=== PATIENT | male | born 1955 | race Caucasian/White ===

== ENCOUNTER 2020-01-10 15:19 | Inpatient (IN) | payer BC ==
[2020-01-10] MEDS ORDERED: methylPREDNISolone SOD SUCCI 125 MG/2 ML VIAL IV STA (15:36)
[2020-01-10] MEDS ORDERED: IPRATROPIUM-ALBUTEROL 3 ML NEB INHALATION STA (15:36)
--- NOTE | 2020-01-10 15:54 | ED ---
General Adult HPI - General Chief complaint: Shortness of Breath Stated complaint: SOB Time Seen by Provider: 01/10/20 15:31 Source: patient, EMS, RN notes reviewed Mode of arrival: EMS Limitations: no limitations - History of Present Illness Initial comments: Patient is a pleasant 64-year-old male presenting to the emergency Department with complaints of difficulty in breathing. Patient states she was discharged from [facility] just a few days ago. Patient continues to feel short of breath. Patient does have cough with occasional or just sputum. No fevers. No leg pain or leg swelling. - Related Data Allergies Allergy/AdvReac Type Severity Reaction Status Date / Time No Known Allergies Allergy Verified 01/10/20 15:55 Review of Systems ROS Statement: Those systems with pertinent positive or pertinent negative responses have been documented in the HPI. ROS Other: All systems not noted in ROS Statement are negative. Constitutional: Denies: fever Eyes: Denies: eye pain ENT: Denies: ear pain Respiratory: Reports: cough, dyspnea Cardiovascular: Denies: chest pain Endocrine: Reports: fatigue Gastrointestinal: Denies: abdominal pain Genitourinary: Denies: dysuria Musculoskeletal: Denies: back pain Skin: Denies: rash Neurological: Denies: weakness Past Medical History Past Medical History: Coronary Artery Disease (CAD), Heart Failure, Hypertension History of Any Multi-Drug Resistant Organisms: None Reported Past Surgical History: Pacemaker Past Psychological History: No Psychological Hx Reported Smoking Status: Current every day smoker Past Alcohol Use History: None Reported Past Drug Use History: None Reported General Exam Limitations: no limitations General appearance: alert, in no apparent distress Head exam: Present: normocephalic Eye exam: Present: normal appearance Neck exam: Present: normal inspection Respiratory exam: Present: wheezes, rhonchi Cardiovascular Exam: Present: regular rate, normal rhythm GI/Abdominal exam: Present: soft. Absent: tenderness Extremities exam: Present: normal inspection. Absent: calf tenderness Neurological exam: Present: alert Psychiatric exam: Present: normal affect, normal mood Skin exam: Present: normal color Course Vital Signs 01/10/20 01/10/20 01/10/20 15:23 15:39 15:45 Temperature 97.6 F Pulse Rate 83 88 86 Respiratory 24 Rate Blood Pressure 133/101 O2 Sat by Pulse 97 Oximetry - Reevaluation(s) Reevaluation #1: 08/04/20 16:26 Patient does meet sepsis criteria diagnosed at 1620. Blood culture and lactic acid ordered. Fluids ordered. IV antibiotics will also be ordered. 01/10/20 16:27 EKG Findings - EKG Comments: EKG Findings:: Sinus rhythm at 87. PVCs present. MO 166. QRS 98. QT 384. QTC 462. Normal axis. Septal Q waves. Lateral T wave inversion. Medical Decision Making - Medical Decision Making Patient reevaluated and resting comfortably in bed. Patient and family updated on results and plan. Case was discussed with Dr. Worthy, covering for Dr. Rivers, who will admit. - Lab Data Result diagrams: 01/10/20 15:40 01/10/20 15:40 Lab Results 01/10/20 01/10/20 01/10/20 Range/Units 15:40 15:40 15:40 WBC 13.3 H (3.8-10.6) k/uL RBC 5.37 (4.30-5.90) m/uL Hgb 16.3 (13.0-17.5) gm/dL Hct 52.9 (39.0-53.0) % MCV 98.5 (80.0-100.0) fL MCH 30.3 (25.0-35.0) pg MCHC 30.8 L (31.0-37.0) g/dL RDW 15.2 (11.5-15.5) % Hypochromasia Moderate Macrocytosis Slight PT 16.4 H (9.0-12.0) sec INR 1.7 H (<1.2) APTT 25.2 (22.0-30.0) sec Sodium 135 L (137-145) mmol/L Potassium 6.2 H* (3.5-5.1) mmol/L Chloride 98 (98-107) mmol/L Carbon Dioxide 28 (22-30) mmol/L Anion Gap 9 mmol/L BUN 64 H (9-20) mg/dL Creatinine 1.55 H (0.66-1.25) mg/dL Est GFR (CKD-EPI)AfAm 54 (>60 ml/min/1.73 sqM) Est GFR (CKD-EPI)NonAf 47 (>60 ml/min/1.73 sqM) Glucose 118 H (74-99) mg/dL Plasma Lactic Acid Harish (0.7-2.0) mmol/L Calcium 8.8 (8.4-10.2) mg/dL Total Bilirubin 2.3 H (0.2-1.3) mg/dL AST 86 H (17-59) U/L ALT 119 H (4-49) U/L Alkaline Phosphatase 126 (38-126) U/L Total Protein 7.5 (6.3-8.2) g/dL Albumin 3.7 (3.5-5.0) g/dL 01/10/20 Range/Units 15:40 WBC (3.8-10.6) k/uL RBC (4.30-5.90) m/uL Hgb (13.0-17.5) gm/dL Hct (39.0-53.0) % MCV (80.0-100.0) fL MCH (25.0-35.0) pg MCHC (31.0-37.0) g/dL RDW (11.5-15.5) % Hypochromasia Macrocytosis PT (9.0-12.0) sec INR (<1.2) APTT (22.0-30.0) sec Sodium (137-145) mmol/L Potassium (3.5-5.1) mmol/L Chloride (98-107) mmol/L Carbon Dioxide (22-30) mmol/L Anion Gap mmol/L BUN (9-20) mg/dL Creatinine (0.66-1.25) mg/dL Est GFR (CKD-EPI)AfAm (>60 ml/min/1.73 sqM) Est GFR (CKD-EPI)NonAf (>60 ml/min/1.73 sqM) Glucose (74-99) mg/dL Plasma Lactic Acid Harish 2.1 H* (0.7-2.0) mmol/L Calcium (8.4-10.2) mg/dL Total Bilirubin (0.2-1.3) mg/dL AST (17-59) U/L ALT (4-49) U/L Alkaline Phosphatase (38-126) U/L Total Protein (6.3-8.2) g/dL Albumin (3.5-5.0) g/dL - Radiology Data Radiology results: image reviewed (Chest x-ray shows left lower lobe consolidate) Critical Care Time Critical Care Time: Yes Total Critical Care Time: 33 Disposition Clinical Impression: Pneumonia, COPD (chronic obstructive pulmonary disease), Sepsis Disposition: ADMITTED IP TO THIS HOSP Condition: Serious Is patient prescribed a controlled substance at d/c from ED?: No Referrals: Joann Scott MD [Primary Care Provider] - 1-2 days Decision Time: 16:27
[2020-01-10 16:07] LABS: Basophils % (A) 0 %; Eosinophils # (A) 0.1 k/uL (0-0.7); Eosinophils % (A) 1 %; HCT 52.9 % (39.0-53.0); HGB 16.3 gm/dL (13.0-17.5); Hypochromasia Moderate; Lymphocytes # (A) 1.1 k/uL (1.0-4.8); Lymphocytes % (A) 9 %; MCH 30.3 pg (25.0-35.0); MCHC 30.8 g/dL (31.0-37.0); MCV 98.5 fL (80.0-100.0); Macrocytosis Slight; Mean Platelet Volume 8.6; Monocytes # (A) 1.2 k/uL (0-1.0); Monocytes % (A) 9 %; Neutrophils # (A) 10.6 k/uL (1.3-7.7); Neutrophils % (A) 79 %; RBC 5.37 m/uL (4.30-5.90); RDW 15.2 % (11.5-15.5); WBC 13.3 k/uL (3.8-10.6)
[2020-01-10 16:08] LABS: Albumin 3.7 g/dL (3.5-5.0); Calcium 8.8 mg/dL (8.4-10.2); INR 1.7 (<1.2); Partial Thromboplastin Time 25.2 sec (22.0-30.0); Prothrombin Time 16.4 sec (9.0-12.0); Total Bilirubin 2.3 mg/dL (0.2-1.3); Total Protein 7.5 g/dL (6.3-8.2)
[2020-01-10 16:09] LABS: Platelet Count 151 k/uL (150-450)
[2020-01-10 16:10] LABS: Potassium 6.2 mmol/L (3.5-5.1)
--- NOTE | 2020-01-10 16:15 | XR ---
EXAMINATION TYPE: XR chest 2V DATE OF EXAM: 01/10/2020 COMPARISON: None INDICATION: Difficulty breathing TECHNIQUE: Frontal and lateral views of the chest are obtained. FINDINGS: The heart size is normal. The pulmonary vasculature is normal. There is an infiltrate in the left lower lobe. Correlate for pneumonia. Pacemaker overlies the left c hest. IMPRESSION: 1. Left lower lobe infiltrate. Correlate for pneumonia. Follow-up is recommended.
[2020-01-10] MEDS ORDERED: LEVOFLOXACIN 750MG-D5W PMX 750 MG in DEXTROSE/WATER 1 150ML.BAG IVPB STA (16:16)
[2020-01-10] MEDS ORDERED: CALCIUM GLUCONATE 1 GM in SODIUM CHLORIDE 0.9% 100 ML IVPB ONE (16:28)
[2020-01-10] MEDS ORDERED: DEXTROSE 50% SYRINGE 50 ML IVP STA (16:28)
[2020-01-10] MEDS ORDERED: INSULIN REGULAR 100 UNIT/ML VIAL IV ONE (16:28)
[2020-01-10 16:29] LABS: Large Platelets Present
[2020-01-10] MEDS ORDERED: SODIUM POLYSTYRENE SULFONATE 15 GM/60 ML BOTTLE PO STA (16:29)
[2020-01-10] MEDS ORDERED: PNEUMONIA PROTOCOL UTILIZED 1 EACH MISC PO PRN (16:29)
[2020-01-10] MEDS ORDERED: IPRATROPIUM-ALBUTEROL 3 ML NEB INHALATION PRN (16:29)
[2020-01-10] MEDS: SODIUM CHLORIDE 0.9% 1,000 ML IV STA ×4 (16:42→16:55)
[2020-01-10] MEDS ORDERED: NITROGLYCERIN SL TABS 0.4 MG TAB SUBLINGUAL PRN (17:12)
[2020-01-10] MEDS ORDERED: ACETAMINOPHEN TAB 500 MG TAB PO PRN (17:12)
--- NOTE | 2020-01-10 17:23 | P.HPIM ---
History of Present Illness Patient is a pleasant 64-year-old came in with comments of symptoms of progressive shortness of breath orthopnea proximal nocturnal dyspnea proximal nocturnal dyspnea every night. Patient was recently discharged from [facility] after he was treated for CHF exacerbation along with UTI. I do not have any medical records from that hospital available will obtain medical records unknown whether patient has decreased EF as per the patient patient appears to have EF of around a 10%. Patient follows up with Dr. Melchor, cardiology. Patient denied any fever chills patient denied any present dysuria is complaining of cough with yellowish sputum production patient has left lower lobe infiltrate on the chest x-ray highly elevated BNP mildly elevated JVD mild pitting pedal edema on exam. Patient has mildly elevated lactic acid of 2.1 because of which patient was given IV fluids which will be discontinued because of his pulmonary edema and CHF and patient will be started on IV Lasix and will recheck the lactic acid. Patient was started on levofloxacin patient was on Augmentin as an outpatient levofloxacin will be continued for now. Patient has mildly elevated INR patient is presently not on Coumadin. He does have elevated potassium of 6.0 for which patient is receiving calcium gluconate along with capsulate. Patient is a smoker is not consumed exacerbation IV steroids were discontinued. Patient has a BNP of 15,000 Review of Systems REVIEW OF SYSTEMS: CONSTITUTIONAL: No fever, no malaise, no fatigue. HEENT: No recent visual problems or hearing problems. Denied any sore throat. CARDIOVASCULAR: No chest pain, no palpitations, no syncope. PULMONARY: no hemoptysis. GASTROINTESTINAL: No diarrhea, no nausea, no vomiting, no abdominal pain. NEUROLOGICAL: No headaches, no weakness, no numbness. HEMATOLOGICAL: Denies any bleeding or petechiae. GENITOURINARY: Denies any burning micturition, frequency, or urgency. MUSCULOSKELETAL/RHEUMATOLOGICAL: Denies any joint pain, swelling, or any muscle pain. ENDOCRINE: Denies any polyuria or polydipsia. The rest of the 14-point review of systems is negative. Past Medical History Past Medical History: Coronary Artery Disease (CAD), Heart Failure, Hypertension History of Any Multi-Drug Resistant Organisms: None Reported Past Surgical History: Pacemaker Past Psychological History: No Psychological Hx Reported Smoking Status: Current every day smoker Past Alcohol Use History: None Reported Past Drug Use History: None Reported Medications and Allergies Home Medications Medication Instructions Recorded Confirmed Type Acetaminophen Tab [Tylenol Tab] 500 mg PO Q4H PRN 01/10/20 01/10/20 History Amoxic-Pot Clav 875-125Mg 1 tab PO Q12H 01/10/20 01/10/20 History [Augmentin 875-125] Aspirin EC [Ecotrin Low Dose] 81 mg PO DAILY 01/10/20 01/10/20 History Budesonide/Formoterol Fumarate 2 puff INHALATION RT-BID 01/10/20 01/10/20 History [Symbicort 160-4.5 Mcg Inhaler] Carvedilol [Coreg] 12.5 mg PO BID 01/10/20 01/10/20 History Famotidine 20 mg PO BID 01/10/20 01/10/20 History Furosemide [Lasix] 40 mg PO BID 01/10/20 01/10/20 History Ipratropium-Albuterol Nebulize 3 ml INHALATION RT-TID 01/10/20 01/10/20 History [Duoneb 0.5 mg-3 mg/3 ml Soln] Nitroglycerin Sl Tabs [Nitrostat] 0.4 mg SUBLINGUAL Q5M PRN 01/10/20 01/10/20 History Oxybutynin Xl [Ditropan Xl] 5 mg PO DAILY 01/10/20 01/10/20 History Potassium Chloride ER [K-Dur 20] 20 meq PO DAILY 01/10/20 01/10/20 History Allergies Allergy/AdvReac Type Severity Reaction Status Date / Time No Known Allergies Allergy Verified 01/10/20 16:48 Physical Exam Vitals: Vital Signs Temp Pulse Resp BP Pulse Ox 01/10/20 16:30 85 20 145/86 95 01/10/20 15:45 86 01/10/20 15:39 88 01/10/20 15:23 97.6 F 83 24 133/101 97 Intake and Output 01/10/20 01/10/20 01/10/20 06:59 14:59 22:59 Other: Weight 139.706 kg PHYSICAL EXAMINATION: GENERAL: The patient is alert and oriented x3, not in any acute distress. Well developed, well nourished. HEENT: Pupils are round and equally reacting to light. EOMI. No scleral icterus. No conjunctival pallor. Normocephalic, atraumatic. No pharyngeal erythema. No thyromegaly. CARDIOVASCULAR: S1 and S2 present. No murmurs, rubs, or gallops. Her elevated JVD PULMONARY: Chest is clear to auscultation, no wheezing or crackles. ABDOMEN: Soft, nontender, nondistended, normoactive bowel sounds. No palpable organomegaly. MUSCULOSKELETAL: No joint swelling or deformity. EXTREMITIES: No cyanosis, clubbing, does have 1-2+ pitting pedal edema in bilateral lower extremities NEUROLOGICAL: Gross neurological examination did not reveal any focal deficits. SKIN: No rashes. Results CBC & Chem 7: 01/10/20 15:40 01/10/20 15:40 Labs: Abnormal Lab Results - Last 24 Hours (Table) 01/10/20 01/10/20 01/10/20 Range/Units 15:40 15:40 15:40 WBC 13.3 H (3.8-10.6) k/uL MCHC 30.8 L (31.0-37.0) g/dL Neutrophils # 10.6 H (1.3-7.7) k/uL Monocytes # 1.2 H (0-1.0) k/uL PT 16.4 H (9.0-12.0) sec INR 1.7 H (<1.2) Sodium 135 L (137-145) mmol/L Potassium 6.2 H* (3.5-5.1) mmol/L BUN 64 H (9-20) mg/dL Creatinine 1.55 H (0.66-1.25) mg/dL Glucose 118 H (74-99) mg/dL Plasma Lactic Acid Harish (0.7-2.0) mmol/L Total Bilirubin 2.3 H (0.2-1.3) mg/dL AST 86 H (17-59) U/L ALT 119 H (4-49) U/L 01/10/20 Range/Units 15:40 WBC (3.8-10.6) k/uL MCHC (31.0-37.0) g/dL Neutrophils # (1.3-7.7) k/uL Monocytes # (0-1.0) k/uL PT (9.0-12.0) sec INR (<1.2) Sodium (137-145) mmol/L Potassium (3.5-5.1) mmol/L BUN (9-20) mg/dL Creatinine (0.66-1.25) mg/dL Glucose (74-99) mg/dL Plasma Lactic Acid Harish 2.1 H* (0.7-2.0) mmol/L Total Bilirubin (0.2-1.3) mg/dL AST (17-59) U/L ALT (4-49) U/L Assessment and Plan Plan: -Shortness of breath and acute hypoxic respiratory failure: Most probably 70 to CHF exacerbation no evidence of COPD exacerbation patient does have history of COPD patient will be started on IV Lasix 6 IV fluids were discontinued. We'll recheck the lactic acid level again -Lactic acidosis secondary to decreased organ perfusion which is expected to improve once the pumping capacity of the heart improves which is again by preload and afterload reduction because of which the we'll order Lasix at this time -Possibly of pneumonia cannot be completely ruled out pulmonary will evaluate the patient patient has left lower lobe infiltrate will continue with levofloxacin patient was recently treated for UTI patient is presently on Augmentin because of which will not repeat year which will be negative because of antibiotics is receiving -Hypertension next and-based to -Continued nicotine use: Counseling was provided -COPD without any acute exacerbation IV steroids will be discontinued -Elevated INR and coag of the probably secondary to nutritional deficiency of vitamin K or hepatic congestion -DVT prophylaxis Lovenox subcutaneous.
[2020-01-10] MEDS ORDERED: methylPREDNISolone SOD SUCCI 125 MG/2 ML VIAL IV SCH (18:00)
[2020-01-10] MEDS ORDERED: LEVOFLOXACIN 750MG-D5W PMX 750 MG in DEXTROSE/WATER 1 150ML.BAG IVPB SCH (18:00)
[2020-01-10] MEDS: carvediloL 12.5 MG TAB PO SCH (18:41)
[2020-01-10] MEDS ORDERED: IPRATROPIUM-ALBUTEROL 3 ML NEB INHALATION SCH ×2 (20:00)
[2020-01-10] MEDS: FUROSEMIDE 10 MG/ML 10 ML VIAL IV SCH (20:20)
[2020-01-10] MEDS: FAMOTIDINE 20 MG TAB PO SCH (20:21)
[2020-01-10] MEDS: TIOTROPIUM 18 MCG/PUFF INHALER INHALATION SCH (20:48)
[2020-01-10] MEDS: SYMBICORT 160-4.5 MCG INHALER INHALATION SCH (20:49)
[2020-01-10] MEDS: ALBUTEROL HFA INHALER INHALATION SCH (20:50)
[2020-01-10] MEDS ORDERED: FAMOTIDINE 20 MG TAB PO SCH (21:00)
[2020-01-10 21:04] LABS: Glucose,Whole Blood 183 mg/dL (75-99)
[2020-01-10] MEDS: INSULIN ASPART (NovoLOG) 100 UNIT/ML VIAL SQ SCH (21:07)
[2020-01-10] MEDS: HEPARIN SODIUM,PORCINE 5,000 UNIT/ML 1 ML VIAL SQ SCH (22:59)
[2020-01-11 06:33] LABS: Glucose,Whole Blood 129 mg/dL (75-99)
[2020-01-11] MEDS: INSULIN ASPART (NovoLOG) 100 UNIT/ML VIAL SQ SCH ×4 (06:37→22:01)
[2020-01-11] MEDS: carvediloL 12.5 MG TAB PO SCH ×2 (06:40→16:55)
--- NOTE | 2020-01-11 07:28 | XR ---
EXAMINATION TYPE: XR chest 1V portable DATE OF EXAM: 01/11/2020 COMPARISON: 01/10/2020 INDICATION: Pneumonia TECHNIQUE: Single frontal view of the chest is obtained. FINDINGS: The heart size is enlarged. The pulmonary vasculature is normal. Mild left costophrenic angle infiltrate is present. Findings may be improving from comparison. Pacema ker overlies left chest. IMPRESSION: 1. Left costophrenic angle infiltrate. Left basilar infiltrate may be improving. Continued follow-up is recommended. 2. Cardiomegaly.
[2020-01-11 08:17] LABS: Calcium 8.5 mg/dL (8.4-10.2)
[2020-01-11 08:25] LABS: HGB 16.9 gm/dL (13.0-17.5); Hypochromasia Marked; MCH 30.3 pg (25.0-35.0); MCHC 30.5 g/dL (31.0-37.0); MCV 99.3 fL (80.0-100.0); Macrocytosis Slight; Platelet Count 146 k/uL (150-450); RBC 5.59 m/uL (4.30-5.90); WBC 16.3 k/uL (3.8-10.6)
[2020-01-11 08:33] LABS: HCT 55.5 % (39.0-53.0)
[2020-01-11] MEDS: TIOTROPIUM 18 MCG/PUFF INHALER INHALATION SCH (08:51)
[2020-01-11] MEDS: ALBUTEROL HFA INHALER INHALATION SCH ×4 (08:51→19:28)
[2020-01-11] MEDS: SYMBICORT 160-4.5 MCG INHALER INHALATION SCH ×2 (08:51→19:28)
[2020-01-11] MEDS: FUROSEMIDE 10 MG/ML 10 ML VIAL IV SCH (09:10)
[2020-01-11] MEDS: FAMOTIDINE 20 MG TAB PO SCH ×2 (09:10→22:00)
[2020-01-11] MEDS: HEPARIN SODIUM,PORCINE 5,000 UNIT/ML 1 ML VIAL SQ SCH (09:10)
[2020-01-11] MEDS: OXYBUTYNIN XL 5 MG TAB.ER.24 PO SCH (09:10)
[2020-01-11] MEDS: ASPIRIN 81 MG PO SCH (09:10)
[2020-01-11] MEDS ORDERED: HEPARIN SODIUM,PORCINE 5,000 UNIT/ML 1 ML VIAL IV PRN (10:03)
[2020-01-11] MEDS ORDERED: HEPARIN SODIUM,PORCINE 10,000 UNIT/ML 1 ML VIAL IV ONE (10:03)
--- NOTE | 2020-01-11 10:12 | ECHOF ---
Referral Reason:CHF MEASUREMENTS -------- HEIGHT: 190.5 cm WEIGHT: 137.9 kg BP: 131/79 RVIDd: 3.8 cm (< 3.3) IVSd: 1.0 cm (0.6 - 1.1) LVIDd: 6.9 cm (3.9 - 5.3) LVPWd: 1.1 cm (0.6 - 1.1) IVSs: 1.1 cm LVIDs: 6.3 cm LVPWs: 1.5 cm LA Diam: 4.7 cm (2.7 - 3.8) LAESV Index (A-L): 35.62 ml/m Ao Diam: 2.9 cm (2.0 - 3.7) AV Cusp: 2.1 cm (1.5 - 2.6) MV EXCURSION: 18.069 mm (> 18.000) MV EF SLOPE: 127 mm/s (70 - 150) EPSS: 3.1 cm MV E Narinder: 0.77 m/s MV DecT: 209 ms MV A Narinder: 0.54 m/s MV E/A Ratio: 1.42 RAP: 15.00 mmHg RVSP: 52.70 mmHg FINDINGS -------- Paced rhythm. This was a technically difficult study with suboptimal apical views. The left ventricle is severely dilated. There is borderline concentric left ventricular hypertrophy . Overall left ventricular systolic function is severely impaired with, an EF between 20 - 25 %. Global hypokinesis The right ventricle is moderately enlarged. LA is moderately dilated 34-39 ml/m2 The right atrium was not well visualized. Lumason used There is no evidence of aortic stenosis. Mild mitral regurgitation is present. Mild tricuspid regurgitation present. There is moderate pulmonary hypertension. The right ventric ular systolic pressure, as measured by Doppler, is 52.70mmHg. The pulmonic valve was not well visualized. The aortic root size is normal. The inferior vena cava is dilated with no significant inspiratory collapse which is consistent estima nia right atrial pressure of >15 mmHg. There is no pericardial effusion. LV apical mass noted CONCLUSIONS -------- 1. Paced rhythm. 2. This was a technically difficult study with suboptimal apical views. 3. The left ventricle is severely dilated. 4. There is borderline concentric left ventricular hypertrophy. 5. Overall left ventricular systolic function is severely impaired with, an EF between 20 - 25 %. 6. Global hypokinesis 7. The right ventricle is moderately enlarged. 8. LA is moderately dilated 34-39 ml/m2 9. Lumason used 10. There is no evidence of aortic stenosis. 11. Mild mitral regurgitation is present. 12. Mild tricuspid regurgitation present. 13. There is moderate pulmonary hypertension. 14. The right ventricular systolic pressure, as measured by Doppler, is 52.70mmHg. 15. The inferior vena cava is dilated with no significant inspiratory collapse which is consistent es timated right atrial pressure of >15 mmHg. 16. There is no pericardial effusion. 17. LV apical mass noted [employer] ATTENDANT: Maricel Huitron RDCS
[2020-01-11] MEDS: HEPARIN SOD,PORK IN 0.45% NACL 25,000 UNIT in 0.45% NACL 1 250ML.BAG IV SCH ×2 (10:30→22:01)
[2020-01-11 11:34] LABS: INR 1.7 (<1.2); Partial Thromboplastin Time 26.5 sec (22.0-30.0); Prothrombin Time 16.3 sec (9.0-12.0)
--- NOTE | 2020-01-11 11:56 | P.PN ---
Subjective 61-year-old male was admitted for a heart failure exacerbation. Patient the had an ejection fraction of around 30 to the liver center. Echocardiogram done well here showed EF of around 20-25% patient also has another cardiac intracardiac thrombus patient was started on IV heparin. Medical records which were reviewed by pulmonology from [facility] showed urine cultures positive for enterococcus and E. coli which are both sensitive to Augmentin patient was started back on Augmentin levofloxacin will be discontinued. We'll cut down the Lasix dose of 40 mg every 12 hourly patient had significant urine output and patient pedal edema significant improved. Patient doesn't have any fever chills at this time. Patient's shortness of breath significantly improved. Constitutional: Denied any fatigue denied any fever. Cardio vascular: denied any chest pain, palpitations Gastrointestinal denied any nausea vomiting Pulmonary: Denied any shortness of breath cough Neurologic denied any new focal deficits All inpatient medications were reviewed and appropriate changes in these medications as dictated in the interval history and assessment and plan. Objective - Vital Signs Vital signs: Vital Signs Temp 97.7 F 01/11/20 11:34 Pulse 80 01/11/20 11:37 Resp 16 01/11/20 11:37 BP 111/62 01/11/20 11:34 Pulse Ox 95 01/11/20 11:34 Intake & Output 01/10/20 01/11/20 01/11/20 18:59 06:59 18:59 Intake Total 100 Output Total 75 1625 Balance 25 -1625 Weight 139.706 kg 138 kg Intake: IV 100 Calcium Gluconate 1 gm In 100 Sodium Chloride 0.9% 100 ml @ 100 mls/hr IVPB ONCE ONE Rx#:[id number] Output: Urine 75 1625 Other: Voiding Method Incontinent Urinal Urinal # Voids 1 - Exam PHYSICAL EXAMINATION: GENERAL: The patient is alert and oriented x3, not in any acute distress. Well developed, well nourished. HEENT: Pupils are round and equally reacting to light. EOMI. No scleral icterus. No conjunctival pallor. Normocephalic, atraumatic. No pharyngeal erythema. No thyromegaly. CARDIOVASCULAR: S1 and S2 present. No murmurs, rubs, or gallops. Improved JVD PULMONARY: Chest is clear to auscultation, no wheezing or crackles. ABDOMEN: Soft, nontender, nondistended, normoactive bowel sounds. No palpable organomegaly. MUSCULOSKELETAL: No joint swelling or deformity. EXTREMITIES: No cyanosis, clubbing, or pedal edema improved NEUROLOGICAL: Gross neurological examination did not reveal any focal deficits. SKIN: No rashes. - Labs CBC & Chem 7: 01/11/20 07:02 01/11/20 07:02 Labs: Abnormal Lab Results - Last 24 Hours (Table) 01/10/20 01/10/20 01/10/20 Range/Units 15:40 15:40 15:40 WBC 13.3 H (3.8-10.6) k/uL Hct (39.0-53.0) % MCHC 30.8 L (31.0-37.0) g/dL Plt Count (150-450) k/uL Neutrophils # 10.6 H (1.3-7.7) k/uL Monocytes # 1.2 H (0-1.0) k/uL PT 16.4 H (9.0-12.0) sec INR 1.7 H (<1.2) Sodium 135 L (137-145) mmol/L Potassium 6.2 H* (3.5-5.1) mmol/L BUN 64 H (9-20) mg/dL Creatinine 1.55 H (0.66-1.25) mg/dL Glucose 118 H (74-99) mg/dL POC Glucose (mg/dL) (75-99) mg/dL Plasma Lactic Acid Harish (0.7-2.0) mmol/L Total Bilirubin 2.3 H (0.2-1.3) mg/dL AST 86 H (17-59) U/L ALT 119 H (4-49) U/L 01/10/20 01/10/20 01/10/20 Range/Units 15:40 18:16 21:03 WBC (3.8-10.6) k/uL Hct (39.0-53.0) % MCHC (31.0-37.0) g/dL Plt Count (150-450) k/uL Neutrophils # (1.3-7.7) k/uL Monocytes # (0-1.0) k/uL PT (9.0-12.0) sec INR (<1.2) Sodium (137-145) mmol/L Potassium (3.5-5.1) mmol/L BUN (9-20) mg/dL Creatinine (0.66-1.25) mg/dL Glucose (74-99) mg/dL POC Glucose (mg/dL) 183 H (75-99) mg/dL Plasma Lactic Acid Harish 2.1 H* 2.1 H* (0.7-2.0) mmol/L Total Bilirubin (0.2-1.3) mg/dL AST (17-59) U/L ALT (4-49) U/L 01/11/20 01/11/20 01/11/20 Range/Units 06:31 07:02 07:02 WBC 16.3 H (3.8-10.6) k/uL Hct 55.5 H (39.0-53.0) % MCHC 30.5 L (31.0-37.0) g/dL Plt Count 146 L (150-450) k/uL Neutrophils # (1.3-7.7) k/uL Monocytes # (0-1.0) k/uL PT (9.0-12.0) sec INR (<1.2) Sodium (137-145) mmol/L Potassium (3.5-5.1) mmol/L BUN 62 H (9-20) mg/dL Creatinine 1.29 H (0.66-1.25) mg/dL Glucose 133 H (74-99) mg/dL POC Glucose (mg/dL) 129 H (75-99) mg/dL Plasma Lactic Acid Harish (0.7-2.0) mmol/L Total Bilirubin (0.2-1.3) mg/dL AST (17-59) U/L ALT (4-49) U/L 01/11/20 Range/Units 10:24 WBC (3.8-10.6) k/uL Hct (39.0-53.0) % MCHC (31.0-37.0) g/dL Plt Count (150-450) k/uL Neutrophils # (1.3-7.7) k/uL Monocytes # (0-1.0) k/uL PT 16.3 H (9.0-12.0) sec INR 1.7 H (<1.2) Sodium (137-145) mmol/L Potassium (3.5-5.1) mmol/L BUN (9-20) mg/dL Creatinine (0.66-1.25) mg/dL Glucose (74-99) mg/dL POC Glucose (mg/dL) (75-99) mg/dL Plasma Lactic Acid Harish (0.7-2.0) mmol/L Total Bilirubin (0.2-1.3) mg/dL AST (17-59) U/L ALT (4-49) U/L Assessment and Plan Plan: -Shortness of breath and acute hypoxic respiratory failure: Secondary to start failure exacerbation improved now lactic acidosis improved serum creatinine and serum sodium improved. Patient does have an intracardiac thrombus for which patient was started on IV heparin -Intra cardiac thrombus: Patient is presently on IV heparin -Acute renal failure secondary to prerenal azotemia from congestive heart failure improving at this time -Hypervolemic hyponatremia improving with Lasix -Lactic acidosis secondary to decreased organ perfusion improved at this time -Pneumonia was ruled out -Recent UTI with enterococcus and E. coli for which we'll continue and complete the course of Augmentin -Hypertension -Continued nicotine use: Counseling was provided -COPD without any acute exacerbation IV steroids will be discontinued -Elevated INR and coag of the probably secondary to nutritional deficiency of vitamin K or hepatic congestion -DVT prophylaxis Lovenox subcutaneous.
[2020-01-11 12:29] LABS: Glucose,Whole Blood 226 mg/dL (75-99)
--- NOTE | 2020-01-11 14:35 | P.CRDCN ---
History of Present Illness Consult date: 01/11/20 History of present illness: CHIEF COMPLAINT: Shortness of breath HISTORY OF PRESENT ILLNESS: 64-year-old male who presented to the hospital with a chief complaint of shortness of breath. Patient states he was recently hospitalized at [facility] for congestive heart failure. He was discharged home on Thursday and continued to get more short of breath for the last 2 days. 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 He does report a history of a pacemaker and AICD. Patient states his shortness of breath and lower extremity edema are improving. He denies any chest pain or discomfort. Patient's weight is down 0.3 kg today. Fluid balance over the last 24 hours is -1600 mL. DIAGNOSTICS Chest xray on admission reveals left lower lobe infiltrate. Correlate for pneumonia. Laboratory data reveals hemoglobin 16.9. Platelet count 146. Sodium 137. Potassium 5.0. BUN 62. Creatinine 1.29. Lactic acid 2.0. Magnesium 2.0. BNP 15,200. Echocardiogram: Reveals left ventricle apical mass/thrombus. Ejection fraction of 20-25%. Global hypokinesis. Right ventricle moderately enlarged. Mild mitral regurg. Mild tricuspid regurg. Moderate pulmonary hypertension. RVSP 52.7. Current outpatient cardiac medications include Lasix 40 mg twice a day, Coreg 12.5 mg twice a day, and aspirin 81 mg daily REVIEW OF SYSTEMS: CONSTITUTIONAL: Denies fever or chills. HEENT: Denies blurred vision, vision changes, or eye pain. Denies hemoptysis CARDIOVASCULAR: Denies chest pain, orthopnea, PND or palpitations RESPIRATORY: Reports shortness of breath GASTROINTESTINAL: Denies abdominal pain. Denies nausea or vomiting. HEMATOLOGIC: Denies bleeding disorders. GENITOURINARY: Denies any blood in urine. SKIN: Denies pruitis. Denies rash. PHYSICAL EXAM: VITAL SIGNS: Reviewed. GENERAL: Well-developed in no acute distress. HEENT: Head is normocephalic. Pupils are equal, round. Sclerae anicteric. Mucous membranes of the mouth are moist. Neck supple. No JVD or thyromegaly LUNGS: Respirations even and unlabored. Lungs essentially clear to auscultation bilaterally. HEART: Regular rate and rhythm. S1 and S2 heard. ABDOMEN: Soft. Nontender. EXTREMITIES: Normal range of motion. No clubbing or cyanosis. Peripheral pulses intact. 1+ bilateral lower extremity edema NEUROLOGIC: Awake and alert. Oriented x 3. ASSESSMENT: 1. Left ventricle thrombus 2. Acute exacerbation of systolic congestive heart failure, EF 20-25% 3. Possible pneumonia 4. Cardiomyopathy with permanent pacemaker/AICD 5. History of COPD with home oxygen use, 2L PLAN: -Continue IV lasix -Daily weights and accurate I&O -Management of possible pneumonia per medicine -Begin IV Heparin. Patient will require oral anticoagulation for left ventricle thrombus -Will obtain office records from patients railroad wheels and axles inspector, Dr. Snider Nurse practitioner note has been reviewed by physician. Signing provider agrees with the documented findings, assessment, and plan of care. Past Medical History Past Medical History: Coronary Artery Disease (CAD), Heart Failure, Hypertension History of Any Multi-Drug Resistant Organisms: None Reported Past Surgical History: Pacemaker Past Anesthesia/Blood Transfusion Reactions: No Reported Reaction Type of Cardiac Device: Permanent Pacemaker, AICD Device Placement Date:: 2016 Past Psychological History: No Psychological Hx Reported Smoking Status: Current every day smoker Past Alcohol Use History: None Reported Past Drug Use History: None Reported - Past Family History Father Family Medical History: Myocardial Infarction ([place]) Medications and Allergies Home Medications Medication Instructions Recorded Confirmed Type Acetaminophen Tab [Tylenol Tab] 500 mg PO Q4H PRN 01/10/20 01/10/20 History Amoxic-Pot Clav 875-125Mg 1 tab PO Q12H 01/10/20 01/10/20 History [Augmentin 875-125] Aspirin EC [Ecotrin Low Dose] 81 mg PO DAILY 01/10/20 01/10/20 History Budesonide/Formoterol Fumarate 2 puff INHALATION RT-BID 01/10/20 01/10/20 History [Symbicort 160-4.5 Mcg Inhaler] Carvedilol [Coreg] 12.5 mg PO BID 01/10/20 01/10/20 History Famotidine 20 mg PO BID 01/10/20 01/10/20 History Furosemide [Lasix] 40 mg PO BID 01/10/20 01/10/20 History Ipratropium-Albuterol Nebulize 3 ml INHALATION RT-TID 01/10/20 01/10/20 History [Duoneb 0.5 mg-3 mg/3 ml Soln] Nitroglycerin Sl Tabs [Nitrostat] 0.4 mg SUBLINGUAL Q5M PRN 01/10/20 01/10/20 History Oxybutynin Xl [Ditropan Xl] 5 mg PO DAILY 01/10/20 01/10/20 History Potassium Chloride ER [K-Dur 20] 20 meq PO DAILY 01/10/20 01/10/20 History Allergies Allergy/AdvReac Type Severity Reaction Status Date / Time No Known Allergies Allergy Verified 01/10/20 16:48 Physical Exam Vitals: Vital Signs Temp Pulse Pulse Resp BP BP Pulse Ox 01/11/20 08:00 98.2 F 52 L 16 102/64 93 L 01/11/20 04:00 98.2 F 75 18 131/79 96 01/11/20 00:00 97.9 F 82 18 115/71 98 01/10/20 20:00 98.0 F 74 18 152/80 98 01/10/20 18:15 98.1 F 70 20 140/83 98 01/10/20 17:52 98.2 F 86 20 136/94 98 01/10/20 16:30 85 20 145/86 95 01/10/20 15:45 86 01/10/20 15:39 88 01/10/20 15:23 97.6 F 83 24 133/101 97 Intake and Output 01/10/20 01/11/20 01/11/20 22:59 06:59 14:59 Intake Total 100 Output Total 625 1075 Balance -525 -1071 Intake: IV 100 Calcium Gluconate 1 gm In 100 Sodium Chloride 0.9% 100 ml @ 100 mls/hr IVPB ONCE ONE Rx#:[id number] Output: Urine 625 1075 Other: Voiding Method Urinal Urinal Urinal # Voids 2 1 Weight 139.706 kg 138 kg Results 01/11/20 07:02 01/11/20 07:02 Cardiac Enzymes 01/10/20 Range/Units 15:40 AST 86 H (17-59) U/L Coagulation 01/10/20 Range/Units 15:40 PT 16.4 H (9.0-12.0) sec APTT 25.2 (22.0-30.0) sec CBC 01/10/20 01/11/20 Range/Units 15:40 07:02 WBC 13.3 H 16.3 H (3.8-10.6) k/uL RBC 5.37 5.59 (4.30-5.90) m/uL Hgb 16.3 16.9 (13.0-17.5) gm/dL Hct 52.9 55.5 H (39.0-53.0) % Plt Count 151 146 L (150-450) k/uL Comprehensive Metabolic Panel 01/10/20 01/11/20 Range/Units 15:40 07:02 Sodium 135 L 137 (137-145) mmol/L Potassium 6.2 H* 5.0 (3.5-5.1) mmol/L Chloride 98 101 (98-107) mmol/L Carbon Dioxide 28 28 (22-30) mmol/L BUN 64 H 62 H (9-20) mg/dL Creatinine 1.55 H 1.29 H (0.66-1.25) mg/dL Glucose 118 H 133 H (74-99) mg/dL Calcium 8.8 8.5 (8.4-10.2) mg/dL AST 86 H (17-59) U/L ALT 119 H (4-49) U/L Alkaline Phosphatase 126 (38-126) U/L Total Protein 7.5 (6.3-8.2) g/dL Albumin 3.7 (3.5-5.0) g/dL Current Medications Generic Name Dose Route Start Last Admin Trade Name Freq PRN Reason Stop Dose Admin Acetaminophen 500 mg 01/10/20 17:12 Tylenol Tab PO Q4H PRN Fever and/ or Pain Albuterol Sulfate 2 puff 01/10/20 20:00 01/11/20 08:51 Ventolin Hfa Inhaler INHALATION 2 puff RT-QID AMY Administration Albuterol/Ipratropium 3 ml 01/10/20 16:29 Duoneb 0.5 Mg-3 Mg/3 Ml Soln INHALATION RT-Q4H PRN shortness of breath Aspirin 81 mg 01/11/20 09:00 01/11/20 09:10 Aspirin PO 81 mg DAILY AMY Administration Budesonide/Formoterol Fumarate 2 puff 01/10/20 20:00 01/11/20 08:51 Symbicort 160-4.5 Mcg Inhaler INHALATION 2 puff RT-BID AMY Administration Carvedilol 12.5 mg 01/10/20 17:30 01/11/20 06:40 Coreg PO 12.5 mg BID-W/MEALS AMY Administration Famotidine 20 mg 01/10/20 21:00 01/11/20 09:10 Pepcid PO 20 mg BID AMY Administration Furosemide 60 mg 01/10/20 21:00 01/11/20 09:10 Lasix IV 60 mg Q12HR AMY Administration Heparin Sodium (Porcine) 0 unit 01/11/20 10:03 Heparin IV PER PROTOCOL PRN Low PTT Protocol Levofloxacin 750 mg/ IV 150 mls @ 100 mls/hr 01/10/20 18:00 01/10/20 18:41 Solution IVPB 100 mls/hr Q24H AMY Administration Heparin Sodium/Sodium Chloride 250 mls @ 22.908 mls/hr 01/11/20 10:15 0 10:30 25,000 unit/ Sodium Chloride IV 16.6 units/kg/hr .[id number] AMY 22.908 mls/hr Administration Protocol 16.6 UNITS/KG/HR Insulin Aspart 0 unit 01/10/20 21:00 01/11/20 06:37 Novolog SQ Not Given ACHS [facility] Protocol Miscellaneous Information 1 each 01/10/20 16:29 Pneumonia Protocol Utilized PO ONCE PRN Per Protocol Nitroglycerin 0.4 mg 01/10/20 17:12 Nitrostat SUBLINGUAL Q5M PRN Chest Pain Oxybutynin Chloride 5 mg 01/11/20 09:00 01/11/20 09:10 Ditropan Xl PO 5 mg DAILY AMY Administration Tiotropium Junior 1 puff 01/10/20 19:00 01/11/20 08:51 Spiriva INHALATION 1 puff RT-DAILY AMY Administration Intake and Output 01/10/20 01/11/20 01/11/20 22:59 06:59 14:59 Intake Total 100 Output Total 625 1075 Balance -525 -107 Intake: IV 100 Calcium Gluconate 1 gm In 100 Sodium Chloride 0.9% 100 ml @ 100 mls/hr IVPB ONCE ONE Rx#:[id number] Output: Urine 625 1075 Other: Voiding Method Urinal Urinal Urinal # Voids 2 1 Weight 139.706 kg 138 kg 01/11/20 07:02 01/11/20 07:02
--- NOTE | 2020-01-11 14:42 | P.CNPUL ---
History of Present Illness Consult date: 01/11/20 Reason for consult: dyspnea, COPD History of present illness: A 64-year-old male patient, with multiple medical pounds and comorbidities was not receiving his care for his cardiac disease through [facility]. The patient has been followed up by Dr. Bermudez, his color tester. He has had multiple hospitalizations to [facility]. He has chronic systolic heart failure with an ejection fraction of 30-35% based on previous echocardiogram. He has an AICD in place. He has history of chronic atrial fibrillation by the do not see any form of long-term anticoagulation, and on this patient. He has had also chronic kidney disease with episodes of acute kidney injury related to cardiorenal factors and his most recent hospitalization at [facility] was in December 2019 when the patient came in for an acute on top of chronic kidney disease. He has limited on combination of cardiac medication diuretics. He has nonocclusive coronary artery disease. he has history of COPD. He has had previous UTIs including a recent infection with enterococcus for which the patient was being treated with Augmentin on o utpatient basis. The patient came into the hospital because of worsening shortness of breath. Some limited increase in lower extremity swelling. His creatinine was at 1.5. He was afebrile. He was having exertional dyspnea and orthopnea. Denied having any angina. No syncope. In terms of his COPD, seems to be oxygen dependent and utilizes Spiriva on outpatient basis in combination with Symbicort and albuterol about treatments around the clock. During this current admission, he was placed on IV Solu-Medrol. He was placed on Levaquin which I suggested switching back to Augmentin based on her recent enterococcal UTI. The patient is feeling okay for now. No reported angina. No altered mentation. He is on IV Lasix and is receiving Lasix 40 g every 12 hours PA chest x-ray shows cardiac megaly with findings consistent with CHF and the patient's proBNP level is elevated at 15,200. A repeat echocardiogram was done and the patient was evaluated to have a ejection fraction of 20-25% along with borderline concentric LVH, LV being severely dilated and the patient has right ventricular systolic pressure of 52 mmHg. No pericardial effusion and there was a possibility of a left ventricular apical mass., Possibly clots. Review of Systems Constitutional: Reports daytime sleepiness, Reports fatigue, Reports weight gain Eyes: denies as per HPI, denies blurred vision, denies bulging eye, denies decreased vision, denies diplopia, denies discharge, denies dry eye, denies irritation, denies itching, denies pain, denies photophobia, denies loss of peripheral vision, denies loss of vision, denies tunnel vision/blind spots Ears: deny: decreased hearing, ear discharge, earache, tinnitus Ears, nose, mouth and throat: Denies headache, Denies sore throat Breasts: absent: as per HPI, gynecomastia Cardiovascular: Reports decreased exercise tolerance, Reports dyspnea on exertion, Reports edema, Reports leg edema, Reports paroxysmal nocturnal dyspnea, Reports shortness of breath Respiratory: Reports dyspnea, Reports home oxygen Gastrointestinal: Reports as per HPI Genitourinary: Reports as per HPI Musculoskeletal: Reports as per HPI Musculoskeletal: bilateral: ankle swelling, absent: ankle pain, ankle stiffness Integumentary: Reports as per HPI Neurological: Reports as per HPI, Reports weakness Psychiatric: Reports as per HPI Endocrine: Reports as per HPI Hematologic/Lymphatic: Reports as per HPI Allergic/Immunologic: Reports as per HPI Past Medical History Past Medical History: Atrial Fibrillation, Coronary Artery Disease (CAD), Heart Failure, COPD, Hypertension Additional Past Medical History / Comment(s): CHF with an ejection fraction of 20-25%, history of AICD placement, nonocclusive coronary artery disease, morbid obesity, chronic kidney disease, morbid obesity, COPD, enterococcal UTI, history of chronic atrial fibrillation, History of Any Multi-Drug Resistant Organisms: None Reported Past Surgical History: Pacemaker Additional Past Surgical History / Comment(s): Previous cardiac catheterization, Past Anesthesia/Blood Transfusion Reactions: No Reported Reaction Type of Cardiac Device: Permanent Pacemaker, AICD Device Placement Date:: 2016 Past Psychological History: No Psychological Hx Reported Smoking Status: Current every day smoker Past Alcohol Use History: None Reported Past Drug Use History: None Reported - Past Family History Father Family Medical History: Myocardial Infarction ([place]) Medications and Allergies Home Medications Medication Instructions Recorded Confirmed Type Acetaminophen Tab [Tylenol Tab] 500 mg PO Q4H PRN 01/10/20 01/10/20 History Amoxic-Pot Clav 875-125Mg 1 tab PO Q12H 01/10/20 01/10/20 History [Augmentin 875-125] Aspirin EC [Ecotrin Low Dose] 81 mg PO DAILY 01/10/20 01/10/20 History Budesonide/Formoterol Fumarate 2 puff INHALATION RT-BID 01/10/20 01/10/20 History [Symbicort 160-4.5 Mcg Inhaler] Carvedilol [Coreg] 12.5 mg PO BID 01/10/20 01/10/20 History Famotidine 20 mg PO BID 01/10/20 01/10/20 History Furosemide [Lasix] 40 mg PO BID 01/10/20 01/10/20 History Ipratropium-Albuterol Nebulize 3 ml INHALATION RT-TID 01/10/20 01/10/20 History [Duoneb 0.5 mg-3 mg/3 ml Soln] Nitroglycerin Sl Tabs [Nitrostat] 0.4 mg SUBLINGUAL Q5M PRN 01/10/20 01/10/20 History Oxybutynin Xl [Ditropan Xl] 5 mg PO DAILY 01/10/20 01/10/20 History Potassium Chloride ER [K-Dur 20] 20 meq PO DAILY 01/10/20 01/10/20 History Allergies Allergy/AdvReac Type Severity Reaction Status Date / Time No Known Allergies Allergy Verified 01/10/20 16:48 Physical Exam Vitals: Vital Signs Temp Pulse Pulse Resp BP BP Pulse Ox 01/11/20 11:37 80 16 01/11/20 11:34 97.7 F 80 16 111/62 95 01/11/20 08:00 98.2 F 52 L 16 102/64 93 L 01/11/20 04:00 98.2 F 75 18 131/79 96 01/11/20 00:00 97.9 F 82 18 115/71 98 01/10/20 20:00 98.0 F 74 18 152/80 98 01/10/20 18:15 98.1 F 70 20 140/83 98 01/10/20 17:52 98.2 F 86 20 136/94 98 01/10/20 16:30 85 20 145/86 95 01/10/20 15:45 86 01/10/20 15:39 88 01/10/20 15:23 97.6 F 83 24 133/101 97 Intake and Output 01/10/20 01/11/20 01/11/20 22:59 06:59 14:59 Intake Total 100 Output Total 625 1075 Balance -410 -8517 Intake: IV 100 Calcium Gluconate 1 gm In 100 Sodium Chloride 0.9% 100 ml @ 100 mls/hr IVPB ONCE ONE Rx#:[id number] Output: Urine 625 1075 Other: Voiding Method Urinal Urinal Urinal # Voids 2 1 Weight 139.706 kg 138 kg obese, comfortable and the patient on acute distress. BMI 38 Head exam was generally normal. There was no scleral icterus or corneal arcus. Mucous membranes were moist. Neck was supple and without jugular venous distension, thyromegaly, or carotid bruits. Carotids were easily palpable bilaterally. There was no adenopathy. The patient is a Mallampati class IV with significant crowding of the posterior oropharynx Lungs sounds are diminished bilaterally along with some few crackles in lung bases Cardiac exam revealed the PMI to be normally situated and sized. The rhythm was regular and no extrasystoles were noted during several minutes of auscultation. The first and second heart sounds were normal and physiologic splitting of the second heart sound was noted. There were no murmurs, rubs, clicks, or gallops. The patient is a pacemaker pocket over the left anterior chest area Abdominal exam revealed normal bowel sounds. The abdomen was soft, non-tender, and without masses, organomegaly, or appreciable enlargement of the abdominal aorta. Extremities revealed trace edema and there is no signs of clubbing Examination of the skin revealed no evidence of significant rashes, suspicious appearing nevi or other concerning lesions. Neurologically, the patient is awake and alert and the patient does not have any focal neurological deficit. Cranial nerves are essentially intact. Results - Laboratory Findings CBC and BMP: 01/11/20 07:02 01/11/20 07:02 PT/INR, D-dimer PT 16.3 sec (9.0-12.0) H 01/11/20 10:24 INR 1.7 (<1.2) H 01/11/20 10:24 Abnormal lab findings: Abnormal Labs 01/10/20 01/10/20 01/10/20 15:40 15:40 15:40 WBC 13.3 H Hct MCHC 30.8 L Plt Count Neutrophils # 10.6 H Monocytes # 1.2 H PT 16.4 H INR 1.7 H Sodium 135 L Potassium 6.2 H* BUN 64 H Creatinine 1.55 H Glucose 118 H POC Glucose (mg/dL) Plasma Lactic Acid Harish Total Bilirubin 2.3 H AST 86 H ALT 119 H 01/10/20 01/10/20 01/10/20 15:40 18:16 21:03 WBC Hct MCHC Plt Count Neutrophils # Monocytes # PT INR Sodium Potassium BUN Creatinine Glucose POC Glucose (mg/dL) 183 H Plasma Lactic Acid Harish 2.1 H* 2.1 H* Total Bilirubin AST ALT 01/11/20 01/11/20 01/11/20 06:31 07:02 07:02 WBC 16.3 H Hct 55.5 H MCHC 30.5 L Plt Count 146 L Neutrophils # Monocytes # PT INR Sodium Potassium BUN 62 H Creatinine 1.29 H Glucose 133 H POC Glucose (mg/dL) 129 H Plasma Lactic Acid Harish Total Bilirubin AST ALT 01/11/20 01/11/20 10:24 12:28 WBC Hct MCHC Plt Count Neutrophils # Monocytes # PT 16.3 H INR 1.7 H Sodium Potassium BUN Creatinine Glucose POC Glucose (mg/dL) 226 H Plasma Lactic Acid Harish Total Bilirubin AST ALT - Diagnostic Findings Chest x-ray: image reviewed Assessment and Plan Plan: 1 shortness of breath secondary to decompensated heart failure with some background COPD 2 CHF with systolic heart failure ejection fraction of 20-25% 3 possible intracardiac thrombus/clots currently on IV heparin 4 chronic kidney disease and his creatinine is at baseline at 1.5 5 pneumonia is doubtful and the chest x-rays most consistent with CHF 6 enterococcal UTI 7 COPD currently inactive in stable 8 chronic hypoxic respiratory failure secondary to above 9 coronary artery disease with nonocclusive disease based on a previous cardiac catheterization 10 history of acid replacement 11 history of atrial fibrillation Plan Discontinue Levaquin and switch this patient to Augmentin to cover for an enterococcal UTI Continue IV Zosyn Discontinue IV Solu-Medrol May utilize DuoNeb nebulized units [id number] 4 times a day and when necessary Resume Symbicort Resume Spiriva IV heparin regarding the intracardiac thrombus with the potential of switching 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
[2020-01-11 17:17] LABS: Glucose,Whole Blood 91 mg/dL (75-99)
[2020-01-11] MEDS: AMOXIC-POT CLAV 875-125MG 1 EACH TAB PO SCH ×2 (17:37→22:12)
--- NOTE | 2020-01-11 20:36 | CONS ---
CONSULTATION REASON FOR CONSULT: Renal failure. HISTORY OF PRESENT ILLNESS: The patient is a 64-year-old male who has a history of CHF and chronic kidney disease who was recently hospitalized at [facility] and was discharged 2 days ago. He also had a urinary tract infection. Patient states that he got significantly short of breath post discharge and was therefore readmitted for volume overload. He did not have any fever or chills. No nausea, vomiting. He did have decreased appetite. Patient states that his ejection fraction has been about 10% and he follows with from Cardiology. Serum creatinine this admission was 1.5 yesterday and today it is at 1.29. The patient is maintained on IV Lasix 40 mg q.12 hours. He states he is feeling slightly better. PAST MEDICAL HISTORY: CHF, systolic; previous EF about 10% per patient. Current echocardiogram shows 20% to 25% ejection fraction. Chronic kidney disease, stage 3, hypertension. PAST SURGICAL HISTORY: Pacemaker placement. SOCIAL HISTORY: Positive for smoking. MEDICATIONS: Medications at home prior to admission included Tylenol, Augmentin, aspirin, Coreg, Lasix, Ditropan, potassium. ALLERGIES: NONE. REVIEW OF SYSTEMS: As per HPI. Other systems negative. PHYSICAL EXAMINATION: Patient is comfortable, awake, not in any acute distress. Mildly short of breath. Blood pressure is 111/62, heart rate 80 per minute. He is afebrile. EXAMINATION OF THE HEART: S1 and S2. EXAMINATION OF LUNGS: Decreased breath sounds at bases. ABDOMEN: Soft, non-tender, distended. Examination of lower extremities shows edema 2+ bilaterally. 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 LABS: Labs show sodium 137, potassium 5.0, chloride 101, BUN 62, creatinine 1.29, hemoglobin 16.9 g/dL. ASSESSMENT: 1. Acute kidney injury, mostly cardiorenal, currently improved. Continue with IV diuresis. Monitor urine output and check daily weights. His weight is down by about 1.5 kg from yesterday. 2. Severe cardiomyopathy, ejection fraction 20% to 25%. 3. Congestive heart failure, acute on top of chronic, mainly systolic. 4. History of hypertension. Blood pressure currently low secondary to poor cardiac status. 5. Recent urinary tract infection at [facility]. Repeat urinalysis. 6. Chronic obstructive pulmonary disease. 7. Coagulopathy. Patient was not on Coumadin prior to admission. He most likely has underlying vitamin K deficiency. PLAN: Continue to diurese patient. Check urinalysis and repeat labs in a.m. Monitor electrolytes. Thank you for this consultation. Will continue to follow the patient with you during his hospitalization. RUSSELL / ARUN: [id number] /
[2020-01-11 20:39] LABS: Glucose,Whole Blood 186 mg/dL (75-99)
[2020-01-11] MEDS: FUROSEMIDE 10 MG/ML 4 ML VIAL IV SCH (22:00)
[2020-01-12 06:30] LABS: Glucose,Whole Blood 123 mg/dL (75-99)
[2020-01-12] MEDS: carvediloL 12.5 MG TAB PO SCH ×2 (06:32→16:11)
[2020-01-12] MEDS: INSULIN ASPART (NovoLOG) 100 UNIT/ML VIAL SQ SCH ×4 (06:33→23:01)
[2020-01-12 07:56] LABS: Calcium 8.5 mg/dL (8.4-10.2); Potassium 4.2 mmol/L (3.5-5.1)
[2020-01-12 08:17] LABS: HGB 16.7 gm/dL (13.0-17.5); Hypochromasia Marked; MCH 30.6 pg (25.0-35.0); MCHC 30.3 g/dL (31.0-37.0); MCV 101.2 fL (80.0-100.0); Macrocytosis Slight; Mean Platelet Volume 9.2; Platelet Count 170 k/uL (150-450); RBC 5.47 m/uL (4.30-5.90); RDW 14.8 % (11.5-15.5)
[2020-01-12 08:22] LABS: HCT 55.3 % (39.0-53.0)
[2020-01-12] MEDS: HEPARIN SOD,PORK IN 0.45% NACL 25,000 UNIT in 0.45% NACL 1 250ML.BAG IV SCH ×2 (08:34→16:09)
[2020-01-12] MEDS: FAMOTIDINE 20 MG TAB PO SCH ×2 (08:36→23:01)
[2020-01-12] MEDS: FUROSEMIDE 10 MG/ML 4 ML VIAL IV SCH (08:36)
[2020-01-12] MEDS: AMOXIC-POT CLAV 875-125MG 1 EACH TAB PO SCH ×2 (08:36→23:01)
[2020-01-12] MEDS: ASPIRIN 81 MG PO SCH (08:36)
[2020-01-12 08:38] LABS: Appearance,Urine Clear (Clear); Bilirubin,Urine Negative (Negative); Blood,Urine Negative (Negative); Color,Urine Colorless; Glucose,Urine (UA) 4+ (Negative); Leukocyte Esterase,Urine Negative (Negative); Nitrite,Urine Negative (Negative); Protein,Urine Negative (Negative); Specific Gravity,Urine 1.036 (1.001-1.035); Urobilinogen,Urine <2.0 mg/dL (<2.0)
[2020-01-12] MEDS: ALBUTEROL HFA INHALER INHALATION SCH ×4 (08:45→19:20)
[2020-01-12] MEDS: SYMBICORT 160-4.5 MCG INHALER INHALATION SCH ×2 (08:45→19:20)
[2020-01-12] MEDS: TIOTROPIUM 18 MCG/PUFF INHALER INHALATION SCH (08:45)
[2020-01-12 11:19] LABS: Ketones,Urine 4+ (Negative)
[2020-01-12 11:58] LABS: Glucose,Whole Blood 135 mg/dL (75-99)
--- NOTE | 2020-01-12 12:35 | PN ---
PROGRESS NOTE Patient is seen for followup for acute kidney injury, mostly cardiorenal. He is currently maintained on IV Lasix. The patient states his swelling has improved. His weight is coming down. PHYSICAL EXAMINATION: On examination, blood pressure was 118/86, heart rate 75 per minute, he is afebrile. Examination of the heart S1, S2. Examination of the lungs, decreased breath sounds at bases. There are some basal crackles heard. Abdomen is soft, nontender, obese. Examination of lower extremities shows edema 1+ bilaterally. 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 LABS: Show sodium 140, potassium 4.2, chloride 97, CO2 is 36, BUN 58, creatinine 1.39. UA shows no protein, no blood. Hemoglobin was 16.7 g/dL. ASSESSMENT: 1. Acute kidney injury cardiorenal, currently stable. 2. CKD NKF stage III mostly secondary to nephrosclerosis. UA shows no evidence of proteinuria or hematuria. 3. CHF acute on top of chronic, mainly systolic. 4. Cardiomyopathy, ejection fraction 20% to 25%. PLAN: Continue to diurese patient, repeat. Patient will need followup as outpatient. MMODL / IJN: [id number] /
[2020-01-12] MEDS: OXYBUTYNIN XL 5 MG TAB.ER.24 PO SCH (12:40)
--- NOTE | 2020-01-12 12:58 | P.PN ---
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 The patient was seen today 01/12/2020. He is feeling better. He does have clear breathing sounds bilaterally but he also still have bilateral lower extremities edema. The echo showed impaired LV function with evidence of clot in the left ventricle. Currently he is on heparin IV. We are looking into an option of either continue with Coumadin or continue with one of the new oral anticoagulation agents. I would recommend giving the patient overnight and follow-up with him. Objective - Vital Signs Vital signs: Vital Signs Temp 96.2 F L 01/12/20 08:00 Pulse 50 L 01/12/20 12:00 Resp 16 01/12/20 12:00 BP 140/73 01/12/20 12:00 Pulse Ox 93 L 01/12/20 12:00 Intake & Output 01/11/20 01/12/20 01/12/20 18:59 06:59 18:59 Intake Total 192.427 182.380 302.431 Output Total 1800 Balance 192.427 -1617.620 302.431 Weight 136.1 kg Intake: Intake, IV Titration 192.427 182.380 62.431 Amount Heparin Sod,Pork in 0.45% 192.427 182.380 62.431 NaCl 25,000 unit In 0.45 % NaCl 1 250ml.bag @ 16.6 UNITS/KG/HR 22.908 mls/ hr IV .[id number] [facility] Rx#: [id number] Oral 240 Output: Urine 1800 Other: Voiding Method Urinal Urinal Urinal # Voids 3 1 - Constitutional General appearance: Present: no acute distress - Respiratory Respiratory: bilateral: diminished - Cardiovascular Rhythm: regular Heart sounds: normal: S1, S2 - Labs CBC & Chem 7: 01/12/20 07:05 01/12/20 07:05 Labs: Abnormal Lab Results - Last 24 Hours (Table) 01/11/20 01/11/20 01/12/20 Range/Units 16:02 20:37 01:43 WBC (3.8-10.6) k/uL Hct (39.0-53.0) % MCV (80.0-100.0) fL MCHC (31.0-37.0) g/dL APTT >200.0 H* 99.7 H (22.0-30.0) sec Chloride (98-107) mmol/L Carbon Dioxide (22-30) mmol/L BUN (9-20) mg/dL Creatinine (0.66-1.25) mg/dL Glucose (74-99) mg/dL POC Glucose (mg/dL) 186 H (75-99) mg/dL Ur Specific [place] (1.001-1.035) Urine Glucose (UA) (Negative) Urine Ketones (Negative) 01/12/20 01/12/20 01/12/20 Range/Units 06:27 06:29 07:05 WBC 22.0 H (3.8-10.6) k/uL Hct 55.3 H (39.0-53.0) % MCV 101.2 H (80.0-100.0) fL MCHC 30.3 L (31.0-37.0) g/dL APTT (22.0-30.0) sec Chloride (98-107) mmol/L Carbon Dioxide (22-30) mmol/L BUN (9-20) mg/dL Creatinine (0.66-1.25) mg/dL Glucose (74-99) mg/dL POC Glucose (mg/dL) 123 H (75-99) mg/dL Ur Specific [place] 1.036 H (1.001-1.035) Urine Glucose (UA) 4+ H (Negative) Urine Ketones 4+ H (Negative) 01/12/20 01/12/20 01/12/20 Range/Units 07:05 07:05 11:56 WBC (3.8-10.6) k/uL Hct (39.0-53.0) % MCV (80.0-100.0) fL MCHC (31.0-37.0) g/dL APTT 74.1 H (22.0-30.0) sec Chloride 97 L (98-107) mmol/L Carbon Dioxide 36 H (22-30) mmol/L BUN 58 H (9-20) mg/dL Creatinine 1.39 H (0.66-1.25) mg/dL Glucose 115 H (74-99) mg/dL POC Glucose (mg/dL) 135 H (75-99) mg/dL Ur Specific [place] (1.001-1.035) Urine Glucose (UA) (Negative) Urine Ketones (Negative) Microbiology - Last 24 Hours (Table) 01/10/20 17:28 Blood Culture - Preliminary Blood No Growth after 24 hours Assessment and Plan Assessment: Assessment #1 congestive heart failure exacerbation secondary to systolic dysfunction #2 severe cardiomyopathy #3 left ventricular thrombus #4 morbid obesity Plan #1 continue heparin IV #2 consider oral anticoagulation down the line #3 follow-up with the patient
--- NOTE | 2020-01-12 13:08 | P.PN ---
Subjective Progress Note Date: 01/12/20 64-year-old male patient being seen in follow-up regarding his CHF. The patient underwent an echo cardiac of that showed impaired LV function with ejection fraction of 20-25%. At the same time there was a intracardiac thrombus first the patient is on IV heparin for now. He has dilation of the left LV and RV. Pulmonary artery pressure was 52. Still on IV Lasix. Producing adequate amount of urine output. He remains a negative fluid balance. There is improvement in his shortness of breath. Creatinine is down to 1.39 with a BUN of 58. White cell count is at 22. Hemoglobin is at 16.7. No other significant events otherwise for now. He is less short of breath. Hemodynamically stable. Objective - Vital Signs Vital signs: Vital Signs Temp 96.2 F L 01/12/20 08:00 Pulse 50 L 01/12/20 12:00 Resp 16 01/12/20 12:00 BP 140/73 01/12/20 12:00 Pulse Ox 93 L 01/12/20 12:00 Intake & Output 01/11/20 01/12/20 01/12/20 18:59 06:59 18:59 Intake Total 192.427 182.380 302.431 Output Total 1800 Balance 192.427 -1617.620 302.431 Weight 136.1 kg Intake: Intake, IV Titration 192.427 182.380 62.431 Amount Heparin Sod,Pork in 0.45% 192.427 182.380 62.431 NaCl 25,000 unit In 0.45 % NaCl 1 250ml.bag @ 16.6 UNITS/KG/HR 22.908 mls/ hr IV .[id number] [facility] Rx#: [id number] Oral 240 Output: Urine 1800 Other: Voiding Method Urinal Urinal Urinal # Voids 3 1 - Exam obese, comfortable and the patient on acute distress. BMI 38 Head exam was generally normal. There was no scleral icterus or corneal arcus. Mucous membranes were moist. Neck was supple and without jugular venous distension, thyromegaly, or carotid bruits. Carotids were easily palpable bilaterally. There was no adenopathy. The patient is a Mallampati class IV with significant crowding of the posterior oropharynx Lungs sounds are diminished bilaterally along with some few crackles in lung bases Cardiac exam revealed the PMI to be normally situated and sized. The rhythm was regular and no extrasystoles were noted during several minutes of auscultation. The first and second heart sounds were normal and physiologic splitting of the second heart sound was noted. There were no murmurs, rubs, clicks, or gallops. The patient is a pacemaker pocket over the left anterior chest area Abdominal exam revealed normal bowel sounds. The abdomen was soft, non-tender, and without masses, organomegaly, or appreciable enlargement of the abdominal aorta. Extremities revealed trace edema and there is no signs of clubbing Examination of the skin revealed no evidence of significant rashes, suspicious appearing nevi or other concerning lesions. Neurologically, the patient is awake and alert and the patient does not have any focal neurological deficit. Cranial nerves are essentially intact. - Labs CBC & Chem 7: 01/12/20 07:05 01/12/20 07:05 Labs: Abnormal Lab Results - Last 24 Hours (Table) 01/11/20 01/11/20 01/12/20 Range/Units 16:02 20:37 01:43 WBC (3.8-10.6) k/uL Hct (39.0-53.0) % MCV (80.0-100.0) fL MCHC (31.0-37.0) g/dL APTT >200.0 H* 99.7 H (22.0-30.0) sec Chloride (98-107) mmol/L Carbon Dioxide (22-30) mmol/L BUN (9-20) mg/dL Creatinine (0.66-1.25) mg/dL Glucose (74-99) mg/dL POC Glucose (mg/dL) 186 H (75-99) mg/dL Ur Specific [place] (1.001-1.035) Urine Glucose (UA) (Negative) Urine Ketones (Negative) 01/12/20 01/12/20 01/12/20 Range/Units 06:27 06:29 07:05 WBC 22.0 H (3.8-10.6) k/uL Hct 55.3 H (39.0-53.0) % MCV 101.2 H (80.0-100.0) fL MCHC 30.3 L (31.0-37.0) g/dL APTT (22.0-30.0) sec Chloride (98-107) mmol/L Carbon Dioxide (22-30) mmol/L BUN (9-20) mg/dL Creatinine (0.66-1.25) mg/dL Glucose (74-99) mg/dL POC Glucose (mg/dL) 123 H (75-99) mg/dL Ur Specific [place] 1.036 H (1.001-1.035) Urine Glucose (UA) 4+ H (Negative) Urine Ketones 4+ H (Negative) 01/12/20 01/12/20 01/12/20 Range/Units 07:05 07:05 11:56 WBC (3.8-10.6) k/uL Hct (39.0-53.0) % MCV (80.0-100.0) fL MCHC (31.0-37.0) g/dL APTT 74.1 H (22.0-30.0) sec Chloride 97 L (98-107) mmol/L Carbon Dioxide 36 H (22-30) mmol/L BUN 58 H (9-20) mg/dL Creatinine 1.39 H (0.66-1.25) mg/dL Glucose 115 H (74-99) mg/dL POC Glucose (mg/dL) 135 H (75-99) mg/dL Ur Specific [place] (1.001-1.035) Urine Glucose (UA) (Negative) Urine Ketones (Negative) Microbiology - Last 24 Hours (Table) 01/10/20 17:28 Blood Culture - Preliminary Blood No Growth after 24 hours Assessment and Plan Plan: 1 shortness of breath secondary to decompensated heart failure with some background COPD 2 CHF with systolic heart failure ejection fraction of 20-25% 3 possible intracardiac thrombus/clots currently on IV heparin 4 chronic kidney disease and his creatinine is at baseline at 1.5 5 pneumonia is doubtful and the chest x-rays most consistent with CHF 6 enterococcal UTI 7 COPD currently inactive in stable 8 chronic hypoxic respiratory failure secondary to above 9 coronary artery disease with nonocclusive disease based on a previous cardiac catheterization 10 history of acid replacement 11 history of atrial fibrillation Plan Continue Augmentin regarding enterococcal UTI Continue IV Lasix Continue IV heparin with the intention of providing this patient long-term and to coagulation 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
[2020-01-12] MEDS ORDERED: guaiFENesin SYRUP 100MG/5ML 200 MG/10 ML CUP PO PRN (15:59)
[2020-01-12] MEDS: FUROSEMIDE 40 MG TAB PO SCH (16:11)
--- NOTE | 2020-01-12 16:36 | P.PN ---
Subjective 61-year-old male was admitted for a heart failure exacerbation. Patient the had an ejection fraction of around 30 to the liver center. Echocardiogram done well here showed EF of around 20-25% patient also has another cardiac intracardiac thrombus patient was started on IV heparin. Medical records which were reviewed by pulmonology from [facility] showed urine cultures positive for enterococcus and E. coli which are both sensitive to Augmentin patient was started back on Augmentin levofloxacin will be discontinued. We'll cut down the Lasix dose of 40 mg every 12 hourly patient had significant urine output and patient pedal edema significant improved. Patient doesn't have any fever chills at this time. Patient's shortness of breath significantly improved. 01/12/2020 Patient will be switched to oral Lasix today patient is fairly euvolemic at this time. Cardiology will let further look into his medical records and cardiac history depending on that will decide on oral anticoagulation. Constitutional: Denied any fatigue denied any fever. Cardio vascular: denied any chest pain, palpitations Gastrointestinal denied any nausea vomiting Pulmonary: Denied any shortness of breath cough Neurologic denied any new focal deficits All inpatient medications were reviewed and appropriate changes in these medications as dictated in the interval history and assessment and plan. Objective - Vital Signs Vital signs: Vital Signs Temp 96.2 F L 01/12/20 08:00 Pulse 50 L 01/12/20 12:00 Resp 16 01/12/20 12:00 BP 140/73 01/12/20 12:00 Pulse Ox 93 L 01/12/20 12:00 Intake & Output 01/11/20 01/12/20 01/12/20 18:59 06:59 18:59 Intake Total 192.427 182.380 808.941 Output Total 1800 Balance 192.427 -1617.620 808.941 Weight 136.1 kg Intake: Intake, IV Titration 192.427 182.380 208.941 Amount Heparin Sod,Pork in 0.45% 192.427 182.380 208.941 NaCl 25,000 unit In 0.45 % NaCl 1 250ml.bag @ 16.6 UNITS/KG/HR 22.908 mls/ hr IV .[id number] [facility] Rx#: [id number] Oral 600 Output: Urine 1800 Other: Voiding Method Urinal Urinal Urinal # Voids 3 1 - Exam PHYSICAL EXAMINATION: GENERAL: The patient is alert and oriented x3, not in any acute distress. Well developed, well nourished. HEENT: Pupils are round and equally reacting to light. EOMI. No scleral icterus. No conjunctival pallor. Normocephalic, atraumatic. No pharyngeal erythema. No thyromegaly. CARDIOVASCULAR: S1 and S2 present. No murmurs, rubs, or gallops. Improved JVD PULMONARY: Chest is clear to auscultation, no wheezing or crackles. ABDOMEN: Soft, nontender, nondistended, normoactive bowel sounds. No palpable organomegaly. MUSCULOSKELETAL: No joint swelling or deformity. EXTREMITIES: No cyanosis, clubbing, or pedal edema improved NEUROLOGICAL: Gross neurological examination did not reveal any focal deficits. SKIN: No rashes. - Labs CBC & Chem 7: 01/12/20 07:05 01/12/20 07:05 Labs: Abnormal Lab Results - Last 24 Hours (Table) 01/11/20 01/11/20 01/12/20 Range/Units 16:02 20:37 01:43 WBC (3.8-10.6) k/uL Hct (39.0-53.0) % MCV (80.0-100.0) fL MCHC (31.0-37.0) g/dL APTT >200.0 H* 99.7 H (22.0-30.0) sec Chloride (98-107) mmol/L Carbon Dioxide (22-30) mmol/L BUN (9-20) mg/dL Creatinine (0.66-1.25) mg/dL Glucose (74-99) mg/dL POC Glucose (mg/dL) 186 H (75-99) mg/dL Ur Specific [place] (1.001-1.035) Urine Glucose (UA) (Negative) Urine Ketones (Negative) 01/12/20 01/12/20 01/12/20 Range/Units 06:27 06:29 07:05 WBC 22.0 H (3.8-10.6) k/uL Hct 55.3 H (39.0-53.0) % MCV 101.2 H (80.0-100.0) fL MCHC 30.3 L (31.0-37.0) g/dL APTT (22.0-30.0) sec Chloride (98-107) mmol/L Carbon Dioxide (22-30) mmol/L BUN (9-20) mg/dL Creatinine (0.66-1.25) mg/dL Glucose (74-99) mg/dL POC Glucose (mg/dL) 123 H (75-99) mg/dL Ur Specific [place] 1.036 H (1.001-1.035) Urine Glucose (UA) 4+ H (Negative) Urine Ketones 4+ H (Negative) 01/12/20 01/12/20 01/12/20 Range/Units 07:05 07:05 11:56 WBC (3.8-10.6) k/uL Hct (39.0-53.0) % MCV (80.0-100.0) fL MCHC (31.0-37.0) g/dL APTT 74.1 H (22.0-30.0) sec Chloride 97 L (98-107) mmol/L Carbon Dioxide 36 H (22-30) mmol/L BUN 58 H (9-20) mg/dL Creatinine 1.39 H (0.66-1.25) mg/dL Glucose 115 H (74-99) mg/dL POC Glucose (mg/dL) 135 H (75-99) mg/dL Ur Specific [place] (1.001-1.035) Urine Glucose (UA) (Negative) Urine Ketones (Negative) Microbiology - Last 24 Hours (Table) 01/10/20 17:28 Blood Culture - Preliminary Blood No Growth after 24 hours Assessment and Plan Plan: -Shortness of breath and acute hypoxic respiratory failure: Secondary to start failure exacerbation improved now lactic acidosis improved serum creatinine and serum sodium improved. Patient does have an intracardiac thrombus for which patient was started on IV heparin -Intra cardiac thrombus: Patient is presently on IV heparin -Acute renal failure secondary to prerenal azotemia from congestive heart failure improving at this time -Hypervolemic hyponatremia improving with Lasix -Lactic acidosis secondary to decreased organ perfusion improved at this time -Pneumonia was ruled out -Recent UTI with enterococcus and E. coli for which we'll continue and complete the course of Augmentin -Hypertension -Continued nicotine use: Counseling was provided -COPD without any acute exacerbation IV steroids will be discontinued -Elevated INR and coag of the probably secondary to nutritional deficiency of vitamin K or hepatic congestion -DVT prophylaxis Lovenox subcutaneous.
[2020-01-12 16:51] LABS: Glucose,Whole Blood 127 mg/dL (75-99)
[2020-01-12 20:57] LABS: Glucose,Whole Blood 135 mg/dL (75-99)
[2020-01-12 22:40] LABS: Glucose,Whole Blood 144 mg/dL (75-99)
[2020-01-13 05:33] LABS: HGB 16.5 gm/dL (13.0-17.5); Hypochromasia Marked; MCH 29.8 pg (25.0-35.0); MCHC 29.8 g/dL (31.0-37.0); MCV 100.2 fL (80.0-100.0); Macrocytosis Slight; Mean Platelet Volume 8.4; Platelet Count 140 k/uL (150-450); RBC 5.52 m/uL (4.30-5.90); RDW 14.7 % (11.5-15.5); WBC 15.6 k/uL (3.8-10.6)
[2020-01-13 05:35] LABS: HCT 55.3 % (39.0-53.0)
[2020-01-13] MEDS ORDERED: DEXTROSE 5% IN WATER 250 ML with AMIODARONE 300 MG IV ONE (05:45)
[2020-01-13] MEDS: carvediloL 12.5 MG TAB PO SCH ×2 (05:46→17:28)
[2020-01-13 05:49] LABS: Calcium 8.2 mg/dL (8.4-10.2); Potassium 4.4 mmol/L (3.5-5.1)
[2020-01-13 06:21] LABS: Glucose,Whole Blood 116 mg/dL (75-99)
[2020-01-13] MEDS: INSULIN ASPART (NovoLOG) 100 UNIT/ML VIAL SQ SCH ×4 (06:31→20:49)
[2020-01-13] MEDS: FAMOTIDINE 20 MG TAB PO SCH ×2 (09:13→20:30)
[2020-01-13] MEDS: ALBUTEROL HFA INHALER INHALATION SCH ×4 (09:13→20:30)
[2020-01-13] MEDS: SYMBICORT 160-4.5 MCG INHALER INHALATION SCH ×2 (09:14→20:30)
[2020-01-13] MEDS: ASPIRIN 81 MG PO SCH (09:14)
[2020-01-13] MEDS: TIOTROPIUM 18 MCG/PUFF INHALER INHALATION SCH (09:14)
[2020-01-13] MEDS: FUROSEMIDE 40 MG TAB PO SCH ×2 (09:14→17:28)
[2020-01-13] MEDS: HEPARIN SOD,PORK IN 0.45% NACL 25,000 UNIT in 0.45% NACL 1 250ML.BAG IV SCH ×2 (09:14→20:30)
[2020-01-13] MEDS: AMOXIC-POT CLAV 875-125MG 1 EACH TAB PO SCH ×2 (09:18→20:30)
[2020-01-13] MEDS: OXYBUTYNIN XL 5 MG TAB.ER.24 PO SCH (09:18)
[2020-01-13 11:40] LABS: Glucose,Whole Blood 142 mg/dL (75-99)
--- NOTE | 2020-01-13 12:27 | PN ---
PROGRESS NOTE Patient is seen for followup for chronic kidney disease, acute kidney injury, mostly cardiorenal. He has been diuresed. Lasix has been switched to p.o. Overall, patient is feeling better. PHYSICAL EXAMINATION: Blood pressure is 122/76, heart rate 95 per minute, he is afebrile. Examination of the heart S1, S2. Examination of the lungs, bilateral breath sounds are heard. Decreased breath sounds at bases. Abdomen is soft, nontender. Examination of lower extremities shows no significant edema. BRAKE ASSEMBLER exam grossly intact. LABS: Show sodium 137, potassium 4.4, BUN 53, creatinine 1.29, hemoglobin 16.5 g/dL. ASSESSMENT: 1. Chronic kidney disease, NKF stage III secondary to nephrosclerosis. 2. Acute kidney injury cardiorenal, currently improved. 3. Fluid overload, now improved. 4. CHF, acute on top of chronic mainly systolic. 5. Cardiomyopathy, ejection fraction 20%-25%. 6. Intracardiac thrombus, currently maintained on anticoagulation. PLAN: Patient is stable for discharge from nephrology standpoint, follow up as outpatient for CKD. Continue antibiotics to complete course for urinary tract infection. MMODL / IJN: [id number] /
--- NOTE | 2020-01-13 13:24 | P.PN ---
Subjective Progress Note Date: 01/13/20 Principal diagnosis: Shortness of breath related to decompensated heart failure with some background COPD 64-year-old male patient being seen in follow-up regarding his CHF. The patient underwent an echo cardiac of that showed impaired LV function with ejection fraction of 20-25%. At the same time there was a intracardiac thrombus first the patient is on IV heparin for now. He has dilation of the left LV and RV. Pulmonary artery pressure was 52. Still on IV Lasix. Producing adequate amount of urine output. He remains a negative fluid balance. There is improvement in his shortness of breath. Creatinine is down to 1.39 with a BUN of 58. White cell count is at 22. Hemoglobin is at 16.7. No other significant events otherwise for now. He is less short of breath. Hemodynamically stable. On 01/13/2020 patient seen in follow-up on selective care unit, he is awake and alert, in no acute distress, he is currently on room air, has some exertional dyspnea, but appears to be in no acute distress, he currently has 0.9 infusing at a rate of 20 ML per hour, is complaining of some swelling and pain in his right hand at the site of the IV insertion and the IV seems to have infiltrated although there is some blood return. We'll discontinue the right hand IV and replace it, he denies any chest pain, room air pulse ox is 95%, his been afebrile, hemodynamically has been stable. He is on oral Lasix at 40 mg twice daily, nebulized bronchodilators, and Augmentin. His blood cultures have shown no growth. Today's labs have been reviewed, showing white blood cell count of 15.6, hemoglobin 16.5, sodium is 137, potassium is 4.4, chloride is 98, CO2 33, BUN is 53 and creatinine is 1.29. His weight is trending down, patient is maintaining negative fluid balance. He is breathing easier, he remains on heparin infusion for recent history of intracardiac thrombus Objective - Vital Signs Vital signs: Vital Signs Temp 97.8 F 01/13/20 08:00 Pulse 76 01/13/20 08:00 Resp 16 01/13/20 08:00 BP 118/77 01/13/20 08:00 Pulse Ox 95 01/13/20 08:00 Intake & Output 01/12/20 01/13/2001/12/20 18:59 06:59 18:59 Intake Total 1048.941 250 Output Total 200 Balance 1048.941 50 Weight 135.5 kg Intake: Intake, IV Titration 208.941 250 Amount Heparin Sod,Pork in 0.45% 208.941 250 NaCl 25,000 unit In 0.45 % NaCl 1 250ml.bag @ 16.6 UNITS/KG/HR 22.908 mls/ hr IV .[id number] [facility] Rx#: [id number] Oral 840 Output: Urine 200 Other: Voiding Method Urinal Urinal Urinal # Voids 1 1 # Bowel Movements 1 - Exam GENERAL EXAM: Alert, very pleasant, 64-year-old obese white male, on room air with a pulse ox of 95% comfortable in no apparent distress. HEAD: Normocephalic/atraumatic. EYES: Normal reaction of pupils, equal size. Conjunctiva pink, sclera white. NOSE: Clear with pink turbinates. THROAT: No erythema or exudates. NECK: No masses, no JVD, no thyroid enlargement, no adenopathy. CHEST: No chest wall deformity. Symmetrical expansion. LUNGS: Equal air entry with no crackles, wheeze, rhonchi or dullness. CVS: Regular rate and rhythm, normal S1 and S2, no gallops, no murmurs, no rubs ABDOMEN: Soft, nontender. No hepatosplenomegaly, normal bowel sounds, no guarding or rigidity. EXTREMITIES: No clubbing, 1+ lower extremity and abdominal wall edema, no cyanosis, 2+ pulses and upper and lower extremities. MUSCULOSKELETAL: Muscle strength and tone normal. SPINE: No scoliosis or deformity SKIN: No rashes CENTRAL NERVOUS SYSTEM: Alert and oriented -3. No focal deficits, tone is normal in all 4 extremities. PSYCHIATRIC: Alert and oriented -3. Appropriate affect. Intact judgment and insight. - Labs CBC & Chem 7: 01/13/20 05:19 01/13/20 05:19 Labs: Abnormal Lab Results - Last 24 Hours (Table) 01/12/20 01/12/20 01/12/20 Range/Units 16:33 16:50 20:55 WBC (3.8-10.6) k/uL Hct (39.0-53.0) % MCV (80.0-100.0) fL MCHC (31.0-37.0) g/dL Plt Count (150-450) k/uL APTT 51.3 H (22.0-30.0) sec Carbon Dioxide (22-30) mmol/L BUN (9-20) mg/dL Creatinine (0.66-1.25) mg/dL Glucose (74-99) mg/dL POC Glucose (mg/dL) 127 H 135 H (75-99) mg/dL Calcium (8.4-10.2) mg/dL 01/12/20 01/13/20 01/13/20 Range/Units 22:38 05:19 05:19 WBC 15.6 H (3.8-10.6) k/uL Hct 55.3 H (39.0-53.0) % MCV 100.2 H (80.0-100.0) fL MCHC 29.8 L (31.0-37.0) g/dL Plt Count 140 L (150-450) k/uL APTT (22.0-30.0) sec Carbon Dioxide 33 H (22-30) mmol/L BUN 53 H (9-20) mg/dL Creatinine 1.29 H (0.66-1.25) mg/dL Glucose 126 H (74-99) mg/dL POC Glucose (mg/dL) 144 H (75-99) mg/dL Calcium 8.2 L (8.4-10.2) mg/dL 01/13/20 01/13/20 01/13/20 Range/Units 05:19 06:19 11:37 WBC (3.8-10.6) k/uL Hct (39.0-53.0) % MCV (80.0-100.0) fL MCHC (31.0-37.0) g/dL Plt Count (150-450) k/uL APTT 42.2 H (22.0-30.0) sec Carbon Dioxide (22-30) mmol/L BUN (9-20) mg/dL Creatinine (0.66-1.25) mg/dL Glucose (74-99) mg/dL POC Glucose (mg/dL) 116 H 142 H (75-99) mg/dL Calcium (8.4-10.2) mg/dL Microbiology - Last 24 Hours (Table) 01/10/20 17:28 Blood Culture - Preliminary Blood No Growth after 48 hours Assessment and Plan Plan: Assessment: 1 shortness of breath secondary to decompensated heart failure with some background COPD 2 CHF with systolic heart failure ejection fraction of 20-25% 3 possible intracardiac thrombus/clots currently on IV heparin 4 chronic kidney disease and his creatinine is at baseline at 1.5 5 pneumonia is doubtful and the chest x-rays most consistent with CHF 6 enterococcal UTI 7 COPD currently inactive in stable 8 chronic hypoxic respiratory failure secondary to above 9 coronary artery disease with nonocclusive disease based on a previous cardiac catheterization 10 history of acid replacement 11 history of atrial fibrillation Plan: Continue IV heparin, patient will need long-term anticoagulation for intr acardiac thrombus, continue current treatment including diuretics and antibiotics, vital signs have been stable, edema has slightly improved, continue monitoring electrodes and renal profile, follow-up chest x-ray in the morning I performed a history & physical examination of the patient and discussed their management with my nurse practitioner, Quiana Guevara. I reviewed the nurse practitioner's note and agree with the documented findings and plan of care. Lung sounds are positive for diminished breath sounds. The findings and the impression was discussed with the patient. I attest to the documentation by the nurse practitioner. Time with Patient: Less than 30
[2020-01-13] MEDS ORDERED: AMIODARONE 360 MG in DEXTROSE 5% IN WATER 200 ML IV ONE ×2 (13:38)
--- NOTE | 2020-01-13 13:40 | P.PN ---
Subjective Progress Note Date: 01/13/20 CHIEF COMPLAINT: Shortness of breath HISTORY OF PRESENT ILLNESS: Patient examined this morning at the bedside. He denies chest pain or SOB. He has been transitioned to oral Lasix. His weight is down 0.6 kg. Fluid balance over the last 24 hours is positive 1098 mL. His vital signs are stable this morning. Patient did have a 58 beat run of V. tach overnight and was given an IV amiodarone bolus. PHYSICAL EXAM: VITAL SIGNS: Reviewed. GENERAL: Well-developed in no acute distress. HEENT: Head is normocephalic. Pupils are equal, round. Sclerae anicteric. Mucous membranes of the mouth are moist. Neck supple. No JVD or thyromegaly LUNGS: Respirations even and unlabored. Lungs essentially clear to auscultation bilaterally. HEART: Regular rate and rhythm. S1 and S2 heard. ASSESSMENT: 1. Left ventricle thrombus 2. Acute exacerbation of systolic congestive heart failure, EF 20-25% 3. Cardiomyopathy with permanent pacemaker/AICD 4. History of COPD with home oxygen use, 2L PLAN: -Continue oral lasix -Daily weights and accurate I&O -Continue IV heparin -Begin Coumadin. 5mg tonight. Check INR in AM -Begin amio drip -Interrogate AICD Nurse practitioner note has been reviewed by physician. Signing provider agrees with the documented findings, assessment, and plan of care. Objective - Vital Signs Vital signs: Vital Signs Temp 97.6 F 01/13/20 04:00 Pulse 95 01/13/20 05:58 Resp 20 01/13/20 04:00 BP 122/76 01/13/20 07:16 Pulse Ox 100 01/13/20 04:00 Intake & Output 01/12/20 01/13/20 01/13/20 18:59 06:59 18:59 Intake Total 1048.941 250 Output Total 200 Balance 1048.941 50 Weight 135.5 kg Intake: Intake, IV Titration 208.941 250 Amount Heparin Sod,Pork in 0.45% 208.941 250 NaCl 25,000 unit In 0.45 % NaCl 1 250ml.bag @ 16.6 UNITS/KG/HR 22.908 mls/ hr IV .[id number] [facility] Rx#: [id number] Oral 840 Output: Urine 200 Other: Voiding Method Urinal Urinal # Voids 1 1 # Bowel Movements 1 - Labs CBC & Chem 7: 01/13/20 05:19 01/13/20 05:19 Labs: Abnormal Lab Results - Last 24 Hours (Table) 01/12/20 01/12/20 01/12/20 Range/Units 06:27 11:56 16:33 WBC (3.8-10.6) k/uL Hct (39.0-53.0) % MCV (80.0-100.0) fL MCHC (31.0-37.0) g/dL Plt Count (150-450) k/uL APTT 51.3 H (22.0-30.0) sec Carbon Dioxide (22-30) mmol/L BUN (9-20) mg/dL Creatinine (0.66-1.25) mg/dL Glucose (74-99) mg/dL POC Glucose (mg/dL) 135 H (75-99) mg/dL Calcium (8.4-10.2) mg/dL Ur Specific [place] 1.036 H (1.001-1.035) Urine Glucose (UA) 4+ H (Negative) Urine Ketones 4+ H (Negative) 01/12/20 01/12/20 01/12/20 Range/Units 16:50 20:55 22:38 WBC (3.8-10.6) k/uL Hct (39.0-53.0) % MCV (80.0-100.0) fL MCHC (31.0-37.0) g/dL Plt Count (150-450) k/uL APTT (22.0-30.0) sec Carbon Dioxide (22-30) mmol/L BUN (9-20) mg/dL Creatinine (0.66-1.25) mg/dL Glucose (74-99) mg/dL POC Glucose (mg/dL) 127 H 135 H 144 H (75-99) mg/dL Calcium (8.4-10.2) mg/dL Ur Specific [place] (1.001-1.035) Urine Glucose (UA) (Negative) Urine Ketones (Negative) 01/13/20 01/13/20 01/13/20 Range/Units 05:19 05:19 05:19 WBC 15.6 H (3.8-10.6) k/uL Hct 55.3 H (39.0-53.0) % MCV 100.2 H (80.0-100.0) fL MCHC 29.8 L (31.0-37.0) g/dL Plt Count 140 L (150-450) k/uL APTT 42.2 H (22.0-30.0) sec Carbon Dioxide 33 H (22-30) mmol/L BUN 53 H (9-20) mg/dL Creatinine 1.29 H (0.66-1.25) mg/dL Glucose 126 H (74-99) mg/dL POC Glucose (mg/dL) (75-99) mg/dL Calcium 8.2 L (8.4-10.2) mg/dL Ur Specific [place] (1.001-1.035) Urine Glucose (UA) (Negative) Urine Ketones (Negative) 01/13/20 Range/Units 06:19 WBC (3.8-10.6) k/uL Hct (39.0-53.0) % MCV (80.0-100.0) fL MCHC (31.0-37.0) g/dL Plt Count (150-450) k/uL APTT (22.0-30.0) sec Carbon Dioxide (22-30) mmol/L BUN (9-20) mg/dL Creatinine (0.66-1.25) mg/dL Glucose (74-99) mg/dL POC Glucose (mg/dL) 116 H (75-99) mg/dL Calcium (8.4-10.2) mg/dL Ur Specific [place] (1.001-1.035) Urine Glucose (UA) (Negative) Urine Ketones (Negative) Microbiology - Last 24 Hours (Table) 01/10/20 17:28 Blood Culture - Preliminary Blood No Growth after 48 hours
--- NOTE | 2020-01-13 14:39 | P.PN ---
Subjective 61-year-old male was admitted for a heart failure exacerbation. Patient the had an ejection fraction of around 30 to the liver center. Echocardiogram done well here showed EF of around 20-25% patient also has another cardiac intracardiac thrombus patient was started on IV heparin. Medical records which were reviewed by pulmonology from [facility] showed urine cultures positive for enterococcus and E. coli which are both sensitive to Augmentin patient was started back on Augmentin levofloxacin will be discontinued. We'll cut down the Lasix dose of 40 mg every 12 hourly patient had significant urine output and patient pedal edema significant improved. Patient doesn't have any fever chills at this time. Patient's shortness of breath significantly improved. 01/12/2020 Patient will be switched to oral Lasix today patient is fairly euvolemic at this time. Cardiology will let further look into his medical records and cardiac history depending on that will decide on oral anticoagulation. 01/13/2020 Patient had an episode of sustained V. tach the patient was a symptomatic at that time patient was started on amiodarone. Patient was also started on Coumadin by cardiology patient can use to be on IV heparin at this time. Constitutional: Denied any fatigue denied any fever. Cardio vascular: denied any chest pain, palpitations Gastrointestinal denied any nausea vomiting Pulmonary: Denied any shortness of breath cough Neurologic denied any new focal deficits All inpatient medications were reviewed and appropriate changes in these medications as dictated in the interval history and assessment and plan. Objective - Vital Signs Vital signs: Vital Signs Temp 97.8 F 01/13/20 08:00 Pulse 76 01/13/20 08:00 Resp 16 01/13/20 08:00 BP 118/77 01/13/20 08:00 Pulse Ox 95 01/13/20 08:00 Intake & Output 01/12/20 01/13/20 01/13/20 18:59 06:59 18:59 Intake Total 1048.941 250 Output Total 200 Balance 1048.941 50 Weight 135.5 kg Intake: Intake, IV Titration 208.941 250 Amount Heparin Sod,Pork in 0.45% 208.941 250 NaCl 25,000 unit In 0.45 % NaCl 1 250ml.bag @ 16.6 UNITS/KG/HR 22.908 mls/ hr IV .[id number] [facility] Rx#: [id number] Oral 840 Output: Urine 200 Other: Voiding Method Urinal Urinal Urinal # Voids 1 1 # Bowel Movements 1 - Exam PHYSICAL EXAMINATION: GENERAL: The patient is alert and oriented x3, not in any acute distress. Well developed, well nourished. HEENT: Pupils are round and equally reacting to light. EOMI. No scleral icterus. No conjunctival pallor. Normocephalic, atraumatic. No pharyngeal erythema. No thyromegaly. CARDIOVASCULAR: S1 and S2 present. No murmurs, rubs, or gallops. Improved JVD PULMONARY: Chest is clear to auscultation, no wheezing or crackles. ABDOMEN: Soft, nontender, nondistended, normoactive bowel sounds. No palpable organomegaly. MUSCULOSKELETAL: No joint swelling or deformity. EXTREMITIES: No cyanosis, clubbing, or pedal edema improved NEUROLOGICAL: Gross neurological examination did not reveal any focal deficits. SKIN: No rashes. - Labs CBC & Chem 7: 01/13/20 05:19 01/13/20 05:19 Labs: Abnormal Lab Results - Last 24 Hours (Table) 01/12/20 01/12/20 01/12/20 Range/Units 16:33 16:50 20:55 WBC (3.8-10.6) k/uL Hct (39.0-53.0) % MCV (80.0-100.0) fL MCHC (31.0-37.0) g/dL Plt Count (150-450) k/uL APTT 51.3 H (22.0-30.0) sec Carbon Dioxide (22-30) mmol/L BUN (9-20) mg/dL Creatinine (0.66-1.25) mg/dL Glucose (74-99) mg/dL POC Glucose (mg/dL) 127 H 135 H (75-99) mg/dL Calcium (8.4-10.2) mg/dL 01/12/20 01/13/20 01/13/20 Range/Units 22:38 05:19 05:19 WBC 15.6 H (3.8-10.6) k/uL Hct 55.3 H (39.0-53.0) % MCV 100.2 H (80.0-100.0) fL MCHC 29.8 L (31.0-37.0) g/dL Plt Count 140 L (150-450) k/uL APTT (22.0-30.0) sec Carbon Dioxide 33 H (22-30) mmol/L BUN 53 H (9-20) mg/dL Creatinine 1.29 H (0.66-1.25) mg/dL Glucose 126 H (74-99) mg/dL POC Glucose (mg/dL) 144 H (75-99) mg/dL Calcium 8.2 L (8.4-10.2) mg/dL 01/13/20 01/13/20 01/13/20 Range/Units 05:19 06:19 11:37 WBC (3.8-10.6) k/uL Hct (39.0-53.0) % MCV (80.0-100.0) fL MCHC (31.0-37.0) g/dL Plt Count (150-450) k/uL APTT 42.2 H (22.0-30.0) sec Carbon Dioxide (22-30) mmol/L BUN (9-20) mg/dL Creatinine (0.66-1.25) mg/dL Glucose (74-99) mg/dL POC Glucose (mg/dL) 116 H 142 H (75-99) mg/dL Calcium (8.4-10.2) mg/dL Microbiology - Last 24 Hours (Table) 01/10/20 17:28 Blood Culture - Preliminary Blood No Growth after 48 hours Assessment and Plan Plan: -Shortness of breath and acute hypoxic respiratory failure: Secondary to congestive heart failure exacerbation improved now lactic acidosis improved serum creatinine and serum sodium improved. Patient does have an intracardiac thrombus for which patient was is on IV heparin, is being started on Coumadin as well -Intra cardiac thrombus: Patient is presently on IV heparin, started on Coumadin as well. -Up episode of nonsustained VT for which patient was started on IV amiodarone -Acute renal failure secondary to prerenal azotemia from congestive heart failure improving at this time -Hypervolemic hyponatremia improving with Lasix patient is presently on oral Lasix -Lactic acidosis secondary to decreased organ perfusion improved at this time -Pneumonia was ruled out -Recent UTI with enterococcus and E. coli for which we'll continue and complete the course of Augmentin -Hypertension -Continued nicotine use: Counseling was provided -COPD without any acute exacerbation IV steroids will be discontinued -Elevated INR and coag of the probably secondary to nutritional deficiency of vitamin K or hepatic congestion -DVT prophylaxis Lovenox subcutaneous.
[2020-01-13 17:39] LABS: Glucose,Whole Blood 132 mg/dL (75-99)
[2020-01-13] MEDS ORDERED: WARFARIN 5 MG TAB PO ONE (18:00)
[2020-01-13] MEDS: AMIODARONE 300 MG in DEXTROSE 5% IN WATER 250 ML IV SCH ×2 (20:39)
[2020-01-13 20:46] LABS: Glucose,Whole Blood 183 mg/dL (75-99)
[2020-01-14 06:16] LABS: Glucose,Whole Blood 125 mg/dL (75-99)
[2020-01-14] MEDS: HEPARIN SOD,PORK IN 0.45% NACL 25,000 UNIT in 0.45% NACL 1 250ML.BAG IV SCH ×2 (06:21→14:31)
[2020-01-14] MEDS: AMIODARONE 300 MG in DEXTROSE 5% IN WATER 250 ML IV SCH ×2 (06:22)
[2020-01-14] MEDS: INSULIN ASPART (NovoLOG) 100 UNIT/ML VIAL SQ SCH ×4 (06:23→21:30)
[2020-01-14] MEDS: carvediloL 12.5 MG TAB PO SCH ×2 (06:25→17:41)
[2020-01-14 07:24] LABS: Calcium 8.8 mg/dL (8.4-10.2)
[2020-01-14 07:42] LABS: HGB 16.9 gm/dL (13.0-17.5); Hypochromasia Marked; MCHC 30.2 g/dL (31.0-37.0); MCV 99.3 fL (80.0-100.0); Macrocytosis Slight; Mean Platelet Volume 8.9; Platelet Count 158 k/uL (150-450); RBC 5.63 m/uL (4.30-5.90); RDW 14.8 % (11.5-15.5); WBC 11.3 k/uL (3.8-10.6)
[2020-01-14 07:45] LABS: HCT 55.9 % (39.0-53.0)
[2020-01-14] MEDS: ONDANSETRON 4 MG/2 ML VIAL IVP PRN (07:49)
[2020-01-14] MEDS: AMOXIC-POT CLAV 875-125MG 1 EACH TAB PO SCH ×2 (08:01→20:39)
[2020-01-14] MEDS: FAMOTIDINE 20 MG TAB PO SCH ×2 (08:01→20:39)
[2020-01-14] MEDS: OXYBUTYNIN XL 5 MG TAB.ER.24 PO SCH (08:01)
[2020-01-14] MEDS: ASPIRIN 81 MG PO SCH (08:01)
[2020-01-14] MEDS: FUROSEMIDE 40 MG TAB PO SCH ×2 (08:01→15:24)
--- NOTE | 2020-01-14 08:46 | P.PN ---
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 During his hospital stay he did have an episode of wide-complex tachycardia concerning for V. tach. At that point he was started on amiodarone was bolus and drip. The patient was seen today January [id number]. Overall he is feeling better. The shortness of breath has improved. Currently he is on Lasix by mouth. He denies any chest pain or chest discomfort. No more episodes of wide-complex tachycardia. I am going to DC the amiodarone IV and start the patient on amiodarone by mouth. We will interrogate his AICD. He was started on, then yesterday and I would get an INR this morning. I will continue heparin IV until the INR is therapeutic. Objective - Vital Signs Vital signs: Vital Signs Temp 97.8 F 01/14/20 07:58 Pulse 78 01/14/20 07:58 Resp 18 01/14/20 07:58 BP 116/63 01/14/20 07:58 Pulse Ox 95 01/14/20 07:58 Intake & Output 01/13/20 01/14/20 01/14/20 18:59 06:59 18:59 Intake Total 66 1130.891 Output Total 825 Balance 66 305.891 Weight 138 kg Intake: Intake, IV Titration 66 650.891 Amount Amiodarone 300 mg In 242.917 Dextrose 5% in Water 250 ml @ 0.5 MG/MIN 25 mls/hr IV .Q10H [facility] Rx#: [id number] Amiodarone 360 mg In 66 Dextrose 5% in Water 200 ml @ 1 MG/MIN 33.333 mls/ hr IV .Q6H [facility] Rx#: [id number] Heparin Sod,Pork in 0.45% 407.974 NaCl 25,000 unit In 0.45 % NaCl 1 250ml.bag @ 16.6 UNITS/KG/HR 22.908 mls/ hr IV .[id number] [facility] Rx#: [id number] Oral 480 Output: Urine 825 Other: Voiding Method Urinal # Voids 1 - Constitutional General appearance: Present: no acute distress - Respiratory Respiratory: bilateral: diminished - Cardiovascular Rhythm: regular Heart sounds: normal: S1, S2 - Labs CBC & Chem 7: 01/14/20 06:10 01/14/20 06:10 Labs: Abnormal Lab Results - Last 24 Hours (Table) 01/13/20 01/13/20 01/13/20 Range/Units 11:37 17:25 20:44 WBC (3.8-10.6) k/uL Hct (39.0-53.0) % MCHC (31.0-37.0) g/dL APTT (22.0-30.0) sec Sodium (137-145) mmol/L Chloride (98-107) mmol/L Carbon Dioxide (22-30) mmol/L BUN (9-20) mg/dL Creatinine (0.66-1.25) mg/dL Glucose (74-99) mg/dL POC Glucose (mg/dL) 142 H 132 H 183 H (75-99) mg/dL 01/14/20 01/14/20 01/14/20 Range/Units 00:14 06:10 06:10 WBC 11.3 H (3.8-10.6) k/uL Hct 55.9 H (39.0-53.0) % MCHC 30.2 L (31.0-37.0) g/dL APTT 57.5 H (22.0-30.0) sec Sodium 136 L (137-145) mmol/L Chloride 96 L (98-107) mmol/L Carbon Dioxide 34 H (22-30) mmol/L BUN 49 H (9-20) mg/dL Creatinine 1.37 H (0.66-1.25) mg/dL Glucose 119 H (74-99) mg/dL POC Glucose (mg/dL) (75-99) mg/dL 01/14/20 Range/Units 06:15 WBC (3.8-10.6) k/uL Hct (39.0-53.0) % MCHC (31.0-37.0) g/dL APTT (22.0-30.0) sec Sodium (137-145) mmol/L Chloride (98-107) mmol/L Carbon Dioxide (22-30) mmol/L BUN (9-20) mg/dL Creatinine (0.66-1.25) mg/dL Glucose (74-99) mg/dL POC Glucose (mg/dL) 125 H (75-99) mg/dL Microbiology - Last 24 Hours (Table) 01/10/20 17:28 Blood Culture - Preliminary Blood No Growth after 72 hours Assessment and Plan Assessment: Assessment #1 congestive heart failure exacerbation secondary to systolic dysfunction #2 severe cardiomyopathy #3 left ventricular thrombus #4 morbid obesity Plan #1 DC amiodarone IV and start the patient on amiodarone by mouth #2 continue Coumadin and monitor the INR #3 AICD interrogation
[2020-01-14] MEDS: ALBUTEROL HFA INHALER INHALATION SCH ×4 (08:52→20:02)
[2020-01-14] MEDS: SYMBICORT 160-4.5 MCG INHALER INHALATION SCH ×2 (08:52→20:02)
[2020-01-14] MEDS: TIOTROPIUM 18 MCG/PUFF INHALER INHALATION SCH (08:52)
--- NOTE | 2020-01-14 10:15 | P.PN ---
Subjective Patient is seen in follow-up for acute kidney injury on chronic kidney disease. Renal function is stable. Good urine output. Amiodarone drip discontinued this morning. Still maintained on heparin drip. No chest pain or shortness of breath. Vital signs are stable. General: The patient appeared well nourished and normally developed. HEENT: Head exam is unremarkable. Neck is without jugular venous distension. LUNGS: Lungs are clear to auscultation and percussion. Breath sounds decreased. HEART: Rate and Rhythm are regular. ABDOMEN: Soft, nontender. EXTREMITITES: 1+ edema. Objective - Vital Signs Vital signs: Vital Signs Temp 97.8 F 01/14/20 07:58 Pulse 78 01/14/20 07:58 Resp 18 01/14/20 07:58 BP 116/63 01/14/20 07:58 Pulse Ox 95 01/14/20 07:58 Intake & Output 01/13/20 01/14/20 01/14/20 18:59 06:59 18:59 Intake Total 66 1130.891 Output Total 825 300 Balance 66 305.891 -300 Weight 138 kg Intake: Intake, IV Titration 66 650.891 Amount Amiodarone 300 mg In 242.917 Dextrose 5% in Water 250 ml @ 0.5 MG/MIN 25 mls/hr IV .Q10H [facility] Rx#: [id number] Amiodarone 360 mg In 66 Dextrose 5% in Water 200 ml @ 1 MG/MIN 33.333 mls/ hr IV .Q6H [facility] Rx#: [id number] Heparin Sod,Pork in 0.45% 407.974 NaCl 25,000 unit In 0.45 % NaCl 1 250ml.bag @ 16.6 UNITS/KG/HR 22.908 mls/ hr IV .[id number] [facility] Rx#: [id number] Oral 480 Output: Urine 825 300 Other: Voiding Method Urinal # Voids 1 1 - Labs CBC & Chem 7: 01/14/20 06:10 01/14/20 06:10 Labs: Abnormal Lab Results - Last 24 Hours (Table) 01/13/20 01/13/20 01/13/20 Range/Units 11:37 17:25 20:44 WBC (3.8-10.6) k/uL Hct (39.0-53.0) % MCHC (31.0-37.0) g/dL APTT (22.0-30.0) sec Sodium (137-145) mmol/L Chloride (98-107) mmol/L Carbon Dioxide (22-30) mmol/L BUN (9-20) mg/dL Creatinine (0.66-1.25) mg/dL Glucose (74-99) mg/dL POC Glucose (mg/dL) 142 H 132 H 183 H (75-99) mg/dL 01/14/20 01/14/20 01/14/20 Range/Units 00:14 06:10 06:10 WBC 11.3 H (3.8-10.6) k/uL Hct 55.9 H (39.0-53.0) % MCHC 30.2 L (31.0-37.0) g/dL APTT 57.5 H (22.0-30.0) sec Sodium 136 L (137-145) mmol/L Chloride 96 L (98-107) mmol/L Carbon Dioxide 34 H (22-30) mmol/L BUN 49 H (9-20) mg/dL Creatinine 1.37 H (0.66-1.25) mg/dL Glucose 119 H (74-99) mg/dL POC Glucose (mg/dL) (75-99) mg/dL 01/14/20 Range/Units 06:15 WBC (3.8-10.6) k/uL Hct (39.0-53.0) % MCHC (31.0-37.0) g/dL APTT (22.0-30.0) sec Sodium (137-145) mmol/L Chloride (98-107) mmol/L Carbon Dioxide (22-30) mmol/L BUN (9-20) mg/dL Creatinine (0.66-1.25) mg/dL Glucose (74-99) mg/dL POC Glucose (mg/dL) 125 H (75-99) mg/dL Microbiology - Last 24 Hours (Table) 01/10/20 17:28 Blood Culture - Preliminary Blood No Growth after 72 hours Assessment and Plan Plan: Assessment: 1. Acute kidney injury mostly prerenal secondary to cardiorenal syndrome. Resolved. 2. Chronic kidney disease stage III secondary to nephrosclerosis. GFR at baseline. 3. Acute on chronic systolic CHF with ejection fraction of 20-25%. 4. V. tach status post amiodarone drip. Cardiology following. 5. Intracardiac thrombus maintained on anticoagulation. Plan: Maintain Lasix 40 mg orally twice daily. Avoid nephrotoxins. Low-salt diet.
[2020-01-14 12:02] LABS: Glucose,Whole Blood 109 mg/dL (75-99)
[2020-01-14 12:18] LABS: INR 1.5 (<1.2); Prothrombin Time 14.7 sec (9.0-12.0)
--- NOTE | 2020-01-14 13:10 | P.PN ---
Subjective Progress Note Date: 01/14/20 Principal diagnosis: Shortness of breath secondary to decompensated heart failure back on COPD 64-year-old male patient being seen in follow-up regarding his CHF. The patient underwent an echo cardiac of that showed impaired LV function with ejection fraction of 20-25%. At the same time there was a intracardiac thrombus first the patient is on IV heparin for now. He has dilation of the left LV and RV. Pulmonary artery pressure was 52. Still on IV Lasix. Producing adequate amount of urine output. He remains a negative fluid balance. There is improvement in his shortness of breath. Creatinine is down to 1.39 with a BUN of 58. White cell count is at 22. Hemoglobin is at 16.7. No other significant events otherwise for now. He is less short of breath. Hemodynamically stable. On 01/13/2020 patient seen in follow-up on selective care unit, he is awake and alert, in no acute distress, he is currently on room air, has some exertional dyspnea, but appears to be in no acute distress, he currently has 0.9 infusing at a rate of 20 ML per hour, is complaining of some swelling and pain in his right hand at the site of the IV insertion and the IV seems to have infiltrated although there is some blood return. We'll discontinue the right hand IV and replace it, he denies any chest pain, room air pulse ox is 95%, his been afebrile, hemodynamically has been stable. He is on oral Lasix at 40 mg twice daily, nebulized bronchodilators, and Augmentin. His blood cultures have shown no growth. Today's labs have been reviewed, showing white blood cell count of 15.6, hemoglobin 16.5, sodium is 137, potassium is 4.4, chloride is 98, CO2 33, BUN is 53 and creatinine is 1.29. His weight is trending down, patient is maintaining negative fluid balance. He is breathing easier, he remains on heparin infusion for recent history of intracardiac thrombus The patient is seen today 01/14/2020 in follow-up on the selective care unit. He is currently sitting up in a chair at the bedside. Awake and alert in no acute distress. Denies any worsening shortness of breath, cough or congestion. He is maintaining O2 saturations in the mid 90s on 2 L/m per nasal cannula. Afebrile. Hemodynamically stable. Cultures reveal no growth. White count 11.3. Hemoglobin 16.9. INR 1.5. Sodium 136. Potassium 4.0. Creatinine 1.37. He is continued on amiodarone at 0.5 mg/m. Heparin drip. To be transitioned to warfarin. Objective - Vital Signs Vital signs: Vital Signs Temp 98.6 F 01/14/20 12:00 Pulse 80 01/14/20 12:00 Resp 16 01/14/20 12:00 BP 122/80 01/14/20 12:00 Pulse Ox 94 L 01/14/20 12:00 Intake & Output 01/13/20 01/14/20 01/14/20 18:59 06:59 18:59 Intake Total 66 1130.891 Output Total 825 300 Balance 66 305.891 -300 Weight 138 kg Intake: Intake, IV Titration 66 650.891 Amount Amiodarone 300 mg In 242.917 Dextrose 5% in Water 250 ml @ 0.5 MG/MIN 25 mls/hr IV .Q10H [facility] Rx#: [id number] Amiodarone 360 mg In 66 Dextrose 5% in Water 200 ml @ 1 MG/MIN 33.333 mls/ hr IV .Q6H [facility] Rx#: [id number] Heparin Sod,Pork in 0.45% 407.974 NaCl 25,000 unit In 0.45 % NaCl 1 250ml.bag @ 16.6 UNITS/KG/HR 22.908 mls/ hr IV .[id number] [facility] Rx#: [id number] Oral 480 Output: Urine 825 300 Other: Voiding Method Urinal # Voids 1 1 # Bowel Movements 0 - Exam GENERAL EXAM: Alert, very pleasant, 64-year-old obese male patient, on 2 L/m per nasal cannula with a pulse ox of 94% comfortable in no apparent distress. HEAD: Normocephalic/atraumatic. EYES: Normal reaction of pupils, equal size. Conjunctiva pink, sclera white. NOSE: Clear with pink turbinates. THROAT: No erythema or exudates. NECK: No masses, no JVD, no thyroid enlargement, no adenopathy. CHEST: No chest wall deformity. Symmetrical expansion. LUNGS: Equal air entry with crackles in the bilateral posterior bases. CVS: Regular rate and rhythm, normal S1 and S2, no gallops, no murmurs, no rubs ABDOMEN: Soft, nontender. No hepatosplenomegaly, normal bowel sounds, no guarding or rigidity. EXTREMITIES: No clubbing, 1+ lower extremity and abdominal wall edema, no cyanosis, 2+ pulses and upper and lower extremities. MUSCULOSKELETAL: Muscle strength and tone normal. SPINE: No scoliosis or deformity SKIN: No rashes CENTRAL NERVOUS SYSTEM: No focal deficits, tone is normal in all 4 extremities. PSYCHIATRIC: Alert and oriented -3. Appropriate affect. Intact judgment and insight. - Labs CBC & Chem 7: 01/14/20 06:10 01/14/20 06:10 Labs: Abnormal Lab Results - Last 24 Hours (Table) 01/13/20 01/13/20 01/14/20 Range/Units 17:25 20:44 00:14 WBC (3.8-10.6) k/uL Hct (39.0-53.0) % MCHC (31.0-37.0) g/dL PT (9.0-12.0) sec INR (<1.2) APTT 57.5 H (22.0-30.0) sec Sodium (137-145) mmol/L Chloride (98-107) mmol/L Carbon Dioxide (22-30) mmol/L BUN (9-20) mg/dL Creatinine (0.66-1.25) mg/dL Glucose (74-99) mg/dL POC Glucose (mg/dL) 132 H 183 H (75-99) mg/dL 01/14/20 01/14/20 01/14/20 Range/Units 06:10 06:10 06:15 WBC 11.3 H (3.8-10.6) k/uL Hct 55.9 H (39.0-53.0) % MCHC 30.2 L (31.0-37.0) g/dL PT (9.0-12.0) sec INR (<1.2) APTT (22.0-30.0) sec Sodium 136 L (137-145) mmol/L Chloride 96 L (98-107) mmol/L Carbon Dioxide 34 H (22-30) mmol/L BUN 49 H (9-20) mg/dL Creatinine 1.37 H (0.66-1.25) mg/dL Glucose 119 H (74-99) mg/dL POC Glucose (mg/dL) 125 H (75-99) mg/dL 01/14/20 01/14/20 Range/Units 11:00 11:59 WBC (3.8-10.6) k/uL Hct (39.0-53.0) % MCHC (31.0-37.0) g/dL PT 14.7 H (9.0-12.0) sec INR 1.5 H (<1.2) APTT (22.0-30.0) sec Sodium (137-145) mmol/L Chloride (98-107) mmol/L Carbon Dioxide (22-30) mmol/L BUN (9-20) mg/dL Creatinine (0.66-1.25) mg/dL Glucose (74-99) mg/dL POC Glucose (mg/dL) 109 H (75-99) mg/dL Microbiology - Last 24 Hours (Table) 01/10/20 17:28 Blood Culture - Preliminary Blood No Growth after 72 hours Assessment and Plan Assessment: 1 shortness of breath secondary to decompensated heart failure with some background COPD 2 acute exacerbation of chronic systolic heart failure, ejection fraction of 20- 25% 3 possible intracardiac thrombus/clots currently on IV heparin 4 chronic kidney disease and his creatinine is at baseline at 1.5 5 pneumonia is doubtful and the chest x-rays most consistent with CHF 6 enterococcal UTI 7 COPD currently inactive in stable 8 chronic hypoxic respiratory failure secondary to above 9 coronary artery disease with nonocclusive disease based on a previous cardiac catheterization 10 history of acid replacement 11 history of atrial fibrillation Plan: The patient was seen and evaluated by Dr. Hill No worsening pulmonary complaints today Continue the current treatment plan To be transitioned to warfarin To be transitioned to oral amiodarone We'll continue to follow I, the cosigning physician, performed a history & physical examination of the pa tient. Lungs sounds with crackles in the bilateral posterior bases. Maintaining good O2 saturations in the 90s on 2 L/m per nasal. I discussed the assessment and plan of care with my nurse practitioner, Margret Wilhelm. I attest to the above note as dictated by her.
--- NOTE | 2020-01-14 14:10 | P.PN ---
Subjective 61-year-old male was admitted for a heart failure exacerbation. Patient the had an ejection fraction of around 30 to the liver center. Echocardiogram done well here showed EF of around 20-25% patient also has another cardiac intracardiac thrombus patient was started on IV heparin. Medical records which were reviewed by pulmonology from [facility] showed urine cultures positive for enterococcus and E. coli which are both sensitive to Augmentin patient was started back on Augmentin levofloxacin will be discontinued. We'll cut down the Lasix dose of 40 mg every 12 hourly patient had significant urine output and patient pedal edema significant improved. Patient doesn't have any fever chills at this time. Patient's shortness of breath significantly improved. 01/12/2020 Patient will be switched to oral Lasix today patient is fairly euvolemic at this time. Cardiology will let further look into his medical records and cardiac history depending on that will decide on oral anticoagulation. 01/13/2020 Patient had an episode of sustained V. tach the patient was a symptomatic at that time patient was started on amiodarone. Patient was also started on Coumadin by cardiology patient can use to be on IV heparin at this time. 01/14/2020 Patient's INR is around 1.6. Patient will be given of 5 mg of Coumadin today patient is also on IV heparin. Patient the AICD is being interrogated at this time patient kidney function remains fairly stable but elevated creatinine. Patient is clinically euvolemic at this time patient was switched to oral amiodarone. Constitutional: Denied any fatigue denied any fever. Cardio vascular: denied any chest pain, palpitations Gastrointestinal denied any nausea vomiting Pulmonary: Denied any shortness of breath cough Neurologic denied any new focal deficits All inpatient medications were reviewed and appropriate changes in these medications as dictated in the interval history and assessment and plan. Objective - Vital Signs Vital signs: Vital Signs Temp 98.6 F 01/14/20 12:00 Pulse 80 01/14/20 12:00 Resp 16 01/14/20 12:00 BP 122/80 01/14/20 12:00 Pulse Ox 94 L 01/14/20 12:00 Intake & Output 01/13/20 01/14/20 01/14/20 18:59 06:59 18:59 Intake Total 66 1130.891 Output Total 825 300 Balance 66 305.891 -300 Weight 138 kg Intake: Intake, IV Titration 66 650.891 Amount Amiodarone 300 mg In 242.917 Dextrose 5% in Water 250 ml @ 0.5 MG/MIN 25 mls/hr IV .Q10H [facility] Rx#: [id number] Amiodarone 360 mg In 66 Dextrose 5% in Water 200 ml @ 1 MG/MIN 33.333 mls/ hr IV .Q6H [facility] Rx#: [id number] Heparin Sod,Pork in 0.45% 407.974 NaCl 25,000 unit In 0.45 % NaCl 1 250ml.bag @ 16.6 UNITS/KG/HR 22.908 mls/ hr IV .[id number] [facility] Rx#: [id number] Oral 480 Output: Urine 825 300 Other: Voiding Method Urinal # Voids 1 1 # Bowel Movements 0 - Exam PHYSICAL EXAMINATION: GENERAL: The patient is alert and oriented x3, not in any acute distress. Well developed, well nourished. HEENT: Pupils are round and equally reacting to light. EOMI. No scleral icterus. No conjunctival pallor. Normocephalic, atraumatic. No pharyngeal erythema. No thyromegaly. CARDIOVASCULAR: S1 and S2 present. No murmurs, rubs, or gallops. Improved JVD PULMONARY: Chest is clear to auscultation, no wheezing or crackles. ABDOMEN: Soft, nontender, nondistended, normoactive bowel sounds. No palpable organomegaly. MUSCULOSKELETAL: No joint swelling or deformity. EXTREMITIES: No cyanosis, clubbing, or pedal edema improved NEUROLOGICAL: Gross neurological examination did not reveal any focal deficits. SKIN: No rashes. - Labs CBC & Chem 7: 01/14/20 06:10 01/14/20 06:10 Labs: Abnormal Lab Results - Last 24 Hours (Table) 01/13/20 01/13/20 01/14/20 Range/Units 17:25 20:44 00:14 WBC (3.8-10.6) k/uL Hct (39.0-53.0) % MCHC (31.0-37.0) g/dL PT (9.0-12.0) sec INR (<1.2) APTT 57.5 H (22.0-30.0) sec Sodium (137-145) mmol/L Chloride (98-107) mmol/L Carbon Dioxide (22-30) mmol/L BUN (9-20) mg/dL Creatinine (0.66-1.25) mg/dL Glucose (74-99) mg/dL POC Glucose (mg/dL) 132 H 183 H (75-99) mg/dL 01/14/20 01/14/20 01/14/20 Range/Units 06:10 06:10 06:15 WBC 11.3 H (3.8-10.6) k/uL Hct 55.9 H (39.0-53.0) % MCHC 30.2 L (31.0-37.0) g/dL PT (9.0-12.0) sec INR (<1.2) APTT (22.0-30.0) sec Sodium 136 L (137-145) mmol/L Chloride 96 L (98-107) mmol/L Carbon Dioxide 34 H (22-30) mmol/L BUN 49 H (9-20) mg/dL Creatinine 1.37 H (0.66-1.25) mg/dL Glucose 119 H (74-99) mg/dL POC Glucose (mg/dL) 125 H (75-99) mg/dL 01/14/20 01/14/20 Range/Units 11:00 11:59 WBC (3.8-10.6) k/uL Hct (39.0-53.0) % MCHC (31.0-37.0) g/dL PT 14.7 H (9.0-12.0) sec INR 1.5 H (<1.2) APTT (22.0-30.0) sec Sodium (137-145) mmol/L Chloride (98-107) mmol/L Carbon Dioxide (22-30) mmol/L BUN (9-20) mg/dL Creatinine (0.66-1.25) mg/dL Glucose (74-99) mg/dL POC Glucose (mg/dL) 109 H (75-99) mg/dL Microbiology - Last 24 Hours (Table) 01/10/20 17:28 Blood Culture - Preliminary Blood No Growth after 72 hours Assessment and Plan Plan: -Shortness of breath and acute hypoxic respiratory failure: Secondary to congestive heart failure exacerbation improved now lactic acidosis improved serum creatinine and serum sodium improved. Patient does have an intracardiac thrombus for which patient was is on IV heparin, is being started on Coumadin as well -Intra cardiac thrombus: Patient is presently on IV heparin, started on Coumadin as well. -Up episode of nonsustained VT for which patient was started on IV amiodarone -Acute renal failure secondary to prerenal azotemia from congestive heart failu re improving at this time -Hypervolemic hyponatremia improving with Lasix patient is presently on oral Lasix -Lactic acidosis secondary to decreased organ perfusion improved at this time -Pneumonia was ruled out -Recent UTI with enterococcus and E. coli for which we'll continue and complete the course of Augmentin -Hypertension -Continued nicotine use: Counseling was provided -COPD without any acute exacerbation IV steroids will be discontinued -Elevated INR and coag of the probably secondary to nutritional deficiency of vitamin K or hepatic congestion -DVT prophylaxis Lovenox subcutaneous.
[2020-01-14 17:32] LABS: Glucose,Whole Blood 120 mg/dL (75-99)
[2020-01-14] MEDS: WARFARIN 5 MG TAB PO SCH (17:40)
[2020-01-14 20:21] LABS: Glucose,Whole Blood 140 mg/dL (75-99)
[2020-01-14] MEDS: AMIODARONE 200 MG TAB PO SCH (20:40)
[2020-01-15] MEDS: HEPARIN SOD,PORK IN 0.45% NACL 25,000 UNIT in 0.45% NACL 1 250ML.BAG IV SCH ×2 (04:07→14:08)
[2020-01-15] MEDS: INSULIN ASPART (NovoLOG) 100 UNIT/ML VIAL SQ SCH ×4 (06:09→20:55)
[2020-01-15 06:11] LABS: Glucose,Whole Blood 103 mg/dL (75-99)
[2020-01-15] MEDS: carvediloL 12.5 MG TAB PO SCH ×2 (06:20→17:36)
[2020-01-15 07:06] LABS: Prothrombin Time 19.8 sec (9.0-12.0)
[2020-01-15 07:54] LABS: Partial Thromboplastin Time 138.8 sec (22.0-30.0)
[2020-01-15] MEDS: SYMBICORT 160-4.5 MCG INHALER INHALATION SCH ×2 (08:11→19:35)
[2020-01-15] MEDS: ALBUTEROL HFA INHALER INHALATION SCH ×4 (08:11→19:35)
[2020-01-15] MEDS: TIOTROPIUM 18 MCG/PUFF INHALER INHALATION SCH (08:12)
[2020-01-15 08:38] LABS: Calcium 8.9 mg/dL (8.4-10.2); Potassium 4.8 mmol/L (3.5-5.1)
--- NOTE | 2020-01-15 09:03 | P.PN ---
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 During his hospital stay he did have an episode of wide-complex tachycardia concerning for V. tach. At that point he was started on amiodarone IV and subsequently by mouth. The patient was seen today January [id number]. He felt dizzy when he was trying to get up earlier today. He did not lose his consciousness. The blood pressure has been on the low side. I would perform an orthostatic blood pressure check on him. Otherwise he continues to be on heparin IV and the INR today is 2.0. I'm going to give the patient 5 mg of Coumadin today. We'll continue monitor the INR. The ICD was interrogated yesterday and did reveal multiple episodes of nonsustained ventricular tachycardia. Objective - Vital Signs Vital signs: Vital Signs Temp 97.9 F 01/15/20 04:21 Pulse 65 01/15/20 04:21 Resp 20 01/15/20 04:21 BP 104/77 01/15/20 04:21 Pulse Ox 96 01/15/20 04:21 Intake & Output 01/14/20 01/15/20 01/15/20 18:59 06:59 18:59 Intake Total 157.78 240 Output Total 300 450 Balance -142.22 -210 Weight 142.6 kg Intake: Intake, IV Titration 157.78 Amount Heparin Sod,Pork in 0.45% 157.78 NaCl 25,000 unit In 0.45 % NaCl 1 250ml.bag @ 16.6 UNITS/KG/HR 22.908 mls/ hr IV .[id number] [facility] Rx#: [id number] Oral 240 Output: Urine 300 450 Other: # Voids 0 # Bowel Movements 0 - Constitutional General appearance: Present: no acute distress - Respiratory Respiratory: bilateral: CTA - Cardiovascular Rhythm: regular Heart sounds: normal: S1, S2 - Labs CBC & Chem 7: 01/14/20 06:10 01/15/20 05:50 Labs: Abnormal Lab Results - Last 24 Hours (Table) 01/14/20 01/14/2001/13/20 Range/Units 11:00 11:59 17:31 PT 14.7 H (9.0-12.0) sec INR 1.5 H (<1.2) APTT (22.0-30.0) sec Sodium (137-145) mmol/L Chloride (98-107) mmol/L BUN (9-20) mg/dL Creatinine (0.66-1.25) mg/dL Glucose (74-99) mg/dL POC Glucose (mg/dL) 109 H 120 H (75-99) mg/dL 01/14/20 01/15/20 01/15/20 Range/Units 20:16 05:50 05:50 PT 19.8 H (9.0-12.0) sec INR 2.0 H (<1.2) APTT 138.8 H* (22.0-30.0) sec Sodium 135 L (137-145) mmol/L Chloride 95 L (98-107) mmol/L BUN 60 H (9-20) mg/dL Creatinine 1.74 H (0.66-1.25) mg/dL Glucose 110 H (74-99) mg/dL POC Glucose (mg/dL) 140 H (75-99) mg/dL 01/15/20 Range/Units 06:09 PT (9.0-12.0) sec INR (<1.2) APTT (22.0-30.0) sec Sodium (137-145) mmol/L Chloride (98-107) mmol/L BUN (9-20) mg/dL Creatinine (0.66-1.25) mg/dL Glucose (74-99) mg/dL POC Glucose (mg/dL) 103 H (75-99) mg/dL Microbiology - Last 24 Hours (Table) 01/10/20 17:28 Blood Culture - Preliminary Blood No Growth after 96 hours Assessment and Plan Assessment: Assessment #1 congestive heart failure exacerbation secondary to systolic dysfunction #2 severe cardiomyopathy #3 left ventricular thrombus #4 morbid obesity Plan #1 continue Coumadin and monitoring INR #2 orthostatic blood pressure #3 follow-up with the patient
[2020-01-15] MEDS: ASPIRIN 81 MG PO SCH (09:12)
[2020-01-15] MEDS: AMOXIC-POT CLAV 875-125MG 1 EACH TAB PO SCH ×2 (09:13→20:55)
[2020-01-15] MEDS: OXYBUTYNIN XL 5 MG TAB.ER.24 PO SCH (09:13)
[2020-01-15] MEDS: AMIODARONE 200 MG TAB PO SCH ×2 (09:13→20:55)
[2020-01-15] MEDS: FAMOTIDINE 20 MG TAB PO SCH ×2 (09:13→20:55)
[2020-01-15] MEDS: FUROSEMIDE 40 MG TAB PO SCH (09:13)
--- NOTE | 2020-01-15 09:48 | P.PN ---
Subjective Patient is seen in follow-up for acute kidney injury on chronic kidney disease. Renal function is a little worse due to diuresis. Good urine output. Oral intake fair. No chest pain or shortness of breath. Vital signs are stable. General: The patient appeared well nourished and normally developed. HEENT: Head exam is unremarkable. Neck is without jugular venous distension. LUNGS: Lungs are clear to auscultation and percussion. Breath sounds decreased. HEART: Rate and Rhythm are regular. ABDOMEN: Soft, nontender. EXTREMITITES: 1+ edema. Objective - Vital Signs Vital signs: Vital Signs Temp 97.6 F 01/15/20 08:00 Pulse 67 01/15/20 08:00 Resp 16 01/15/20 08:00 BP 96/70 01/15/20 09:30 Pulse Ox 94 L 01/15/20 08:00 Intake & Output 01/14/20 01/15/20 01/15/20 18:59 06:59 18:59 Intake Total 157.78 240 250 Output Total 300 450 Balance -142.22 -210 250 Weight 142.6 kg Intake: Intake, IV Titration 157.78 250 Amount Heparin Sod,Pork in 0.45% 157.78 250 NaCl 25,000 unit In 0.45 % NaCl 1 250ml.bag @ 16.6 UNITS/KG/HR 22.908 mls/ hr IV .[id number] [facility] Rx#: [id number] Oral 240 Output: Urine 300 450 Other: # Voids 0 # Bowel Movements 0 - Labs CBC & Chem 7: 01/14/20 06:10 01/15/20 05:50 Labs: Abnormal Lab Results - Last 24 Hours (Table) 01/14/20 01/14/20 01/14/20 Range/Units 11:00 11:59 17:31 PT 14.7 H (9.0-12.0) sec INR 1.5 H (<1.2) APTT (22.0-30.0) sec Sodium (137-145) mmol/L Chloride (98-107) mmol/L BUN (9-20) mg/dL Creatinine (0.66-1.25) mg/dL Glucose (74-99) mg/dL POC Glucose (mg/dL) 109 H 120 H (75-99) mg/dL 01/14/20 01/15/2001/14/20 Range/Units 20:16 05:50 05:50 PT 19.8 H (9.0-12.0) sec INR 2.0 H (<1.2) APTT 138.8 H* (22.0-30.0) sec Sodium 135 L (137-145) mmol/L Chloride 95 L (98-107) mmol/L BUN 60 H (9-20) mg/dL Creatinine 1.74 H (0.66-1.25) mg/dL Glucose 110 H (74-99) mg/dL POC Glucose (mg/dL) 140 H (75-99) mg/dL 01/15/20 Range/Units 06:09 PT (9.0-12.0) sec INR (<1.2) APTT (22.0-30.0) sec Sodium (137-145) mmol/L Chloride (98-107) mmol/L BUN (9-20) mg/dL Creatinine (0.66-1.25) mg/dL Glucose (74-99) mg/dL POC Glucose (mg/dL) 103 H (75-99) mg/dL Microbiology - Last 24 Hours (Table) 01/10/20 17:28 Blood Culture - Preliminary Blood No Growth after 96 hours Assessment and Plan Plan: Assessment: 1. Acute kidney injury mostly prerenal secondary to cardiorenal syndrome. Renal function worse due to diuresis. Creatinine 1.74 today. 2. Chronic kidney disease stage III secondary to nephrosclerosis. GFR at baseline. 3. Acute on chronic systolic CHF with ejection fraction of 20-25%. 4. V. tach status post amiodarone drip. Cardiology following. 5. Intracardiac thrombus maintained on anticoagulation. Plan: Decrease Lasix to 40 mg orally once daily. Avoid nephrotoxins. Low-salt diet.
[2020-01-15 11:44] LABS: Glucose,Whole Blood 122 mg/dL (75-99)
--- NOTE | 2020-01-15 12:18 | P.PN ---
Subjective Progress Note Date: 01/15/20 Principal diagnosis: Shortness of breath secondary to decompensated heart failure back on COPD 64-year-old male patient being seen in follow-up regarding his CHF. The patient underwent an echo cardiac of that showed impaired LV function with ejection fraction of 20-25%. At the same time there was a intracardiac thrombus first the patient is on IV heparin for now. He has dilation of the left LV and RV. Pulmonary artery pressure was 52. Still on IV Lasix. Producing adequate amount of urine output. He remains a negative fluid balance. There is improvement in his shortness of breath. Creatinine is down to 1.39 with a BUN of 58. White cell count is at 22. Hemoglobin is at 16.7. No other significant events otherwise for now. He is less short of breath. Hemodynamically stable. On 01/13/2020 patient seen in follow-up on selective care unit, he is awake and alert, in no acute distress, he is currently on room air, has some exertional dyspnea, but appears to be in no acute distress, he currently has 0.9 infusing at a rate of 20 ML per hour, is complaining of some swelling and pain in his right hand at the site of the IV insertion and the IV seems to have infiltrated although there is some blood return. We'll discontinue the right hand IV and replace it, he denies any chest pain, room air pulse ox is 95%, his been afebrile, hemodynamically has been stable. He is on oral Lasix at 40 mg twice daily, nebulized bronchodilators, and Augmentin. His blood cultures have shown no growth. Today's labs have been reviewed, showing white blood cell count of 15.6, hemoglobin 16.5, sodium is 137, potassium is 4.4, chloride is 98, CO2 33, BUN is 53 and creatinine is 1.29. His weight is trending down, patient is maintaining negative fluid balance. He is breathing easier, he remains on heparin infusion for recent history of intracardiac thrombus The patient is seen today 01/14/2020 in follow-up on the selective care unit. He is currently sitting up in a chair at the bedside. Awake and alert in no acute distress. Denies any worsening shortness of breath, cough or congestion. He is maintaining O2 saturations in the mid 90s on 2 L/m per nasal cannula. Afebrile. Hemodynamically stable. Cultures reveal no growth. White count 11.3. Hemoglobin 16.9. INR 1.5. Sodium 136. Potassium 4.0. Creatinine 1.37. He is continued on amiodarone at 0.5 mg/m. Heparin drip. To be transitioned to warfarin. The patient is seen today 01/15/2020 in follow-up on the selective care unit. He is currently sitting up in a chair at the bedside. Awake and alert in no acute distress. He is maintaining good O2 saturations in the 90s on room air. He's afebrile. Orthostatic hypotension noted. INR 2.0 today. Sodium 135. Potassium 4.8. Creatinine 1.74. He is continued on Symbicort, Spiriva, Ventolin. Antibiotics in the form of Augmentin. Cardiology is on the case. He is on oral amiodarone, beta blockers. Anticoagulated with warfarin. Heparin to be discontinued. Objective - Vital Signs Vital signs: Vital Signs Temp 97.6 F 01/15/20 08:00 Pulse 67 01/15/20 08:00 Resp 16 01/15/20 08:00 BP 96/70 01/15/20 09:30 Pulse Ox 94 L 01/15/20 08:00 Intake & Output 01/14/20 01/15/20 01/15/20 18:59 06:59 18:59 Intake Total 157.78 240 250 Output Total 300 450 Balance -142.22 -210 250 Weight 142.6 kg Intake: Intake, IV Titration 157.78 250 Amount Heparin Sod,Pork in 0.45% 157.78 250 NaCl 25,000 unit In 0.45 % NaCl 1 250ml.bag @ 16.6 UNITS/KG/HR 22.908 mls/ hr IV .[id number] [facility] Rx#: [id number] Oral 240 Output: Urine 300 450 Other: # Voids 0 # Bowel Movements 0 - Exam GENERAL EXAM: Alert, very pleasant, pale, 64-year-old obese male patient, on room air with a pulse ox of 94% comfortable in no apparent distress. HEAD: Normocephalic/atraumatic. EYES: Normal reaction of pupils, equal size. Conjunctiva pink, sclera white. NOSE: Clear with pink turbinates. THROAT: No erythema or exudates. NECK: No masses, no JVD, no thyroid enlargement, no adenopathy. CHEST: No chest wall deformity. Symmetrical expansion. LUNGS: Equal air entry with crackles in the bilateral posterior bases. CVS: Regular rate and rhythm, normal S1 and S2, no gallops, no murmurs, no rubs ABDOMEN: Soft, nontender. No hepatosplenomegaly, normal bowel sounds, no guarding or rigidity. EXTREMITIES: No clubbing, 1+ lower extremity and abdominal wall edema, no cyanosis, 2+ pulses and upper and lower extremities. MUSCULOSKELETAL: Muscle strength and tone normal. SPINE: No scoliosis or deformity SKIN: No rashes CENTRAL NERVOUS SYSTEM: No focal deficits, tone is normal in all 4 extremities. PSYCHIATRIC: Alert and oriented -3. Appropriate affect. Intact judgment and insight. - Labs CBC & Chem 7: 01/14/20 06:10 01/15/20 05:50 Labs: Abnormal Lab Results - Last 24 Hours (Table) 01/14/20 01/14/20 01/14/20 Range/Units 11:00 17:31 20:16 PT 14.7 H (9.0-12.0) sec INR 1.5 H (<1.2) APTT (22.0-30.0) sec Sodium (137-145) mmol/L Chloride (98-107) mmol/L BUN (9-20) mg/dL Creatinine (0.66-1.25) mg/dL Glucose (74-99) mg/dL POC Glucose (mg/dL) 120 H 140 H (75-99) mg/dL 01/15/20 01/15/20 01/15/20 Range/Units 05:50 05:50 06:09 PT 19.8 H (9.0-12.0) sec INR 2.0 H (<1.2) APTT 138.8 H* (22.0-30.0) sec Sodium 135 L (137-145) mmol/L Chloride 95 L (98-107) mmol/L BUN 60 H (9-20) mg/dL Creatinine 1.74 H (0.66-1.25) mg/dL Glucose 110 H (74-99) mg/dL POC Glucose (mg/dL) 103 H (75-99) mg/dL 01/15/20 Range/Units 11:42 PT (9.0-12.0) sec INR (<1.2) APTT (22.0-30.0) sec Sodium (137-145) mmol/L Chloride (98-107) mmol/L BUN (9-20) mg/dL Creatinine (0.66-1.25) mg/dL Glucose (74-99) mg/dL POC Glucose (mg/dL) 122 H (75-99) mg/dL Microbiology - Last 24 Hours (Table) 01/10/20 17:28 Blood Culture - Preliminary Blood No Growth after 96 hours Assessment and Plan Assessment: 1 shortness of breath secondary to decompensated heart failure with some background COPD 2 acute exacerbation of chronic systolic heart failure, ejection fraction of 20- 25% 3 possible intracardiac thrombus/clots currently on IV heparin 4 chronic kidney disease and his creatinine is at baseline at 1.5 5 pneumonia is doubtful and the chest x-rays most consistent with CHF 6 enterococcal UTI 7 COPD currently inactive in stable 8 chronic hypoxic respiratory failure secondary to above 9 coronary artery disease with nonocclusive disease based on a previous cardiac catheterization 10 history of acid replacement 11 history of atrial fibrillation Plan: The patient was seen and evaluated by Dr. Hill Currently stable from the pulmonary standpoint Continue the current treatment plan Anti coagulated with warfarin We'll continue to follow I, the cosigning physician, performed a history & physical examination of the patient. Lungs sounds with crackles in the bilateral posterior bases. Maintai jose good O2 saturations in the 90s on 2 L/m per nasal. I discussed the assessment and plan of care with my nurse practitioner, Margret Wilhelm. I attest to the above note as dictated by her.
--- NOTE | 2020-01-15 12:51 | P.PN ---
Subjective 61-year-old male was admitted for a heart failure exacerbation. Patient the had an ejection fraction of around 30 to the liver center. Echocardiogram done well here showed EF of around 20-25% patient also has another cardiac intracardiac thrombus patient was started on IV heparin. Medical records which were reviewed by pulmonology from [facility] showed urine cultures positive for enterococcus and E. coli which are both sensitive to Augmentin patient was started back on Augmentin levofloxacin will be discontinued. We'll cut down the Lasix dose of 40 mg every 12 hourly patient had significant urine output and patient pedal edema significant improved. Patient doesn't have any fever chills at this time. Patient's shortness of breath significantly improved. 01/12/2020 Patient will be switched to oral Lasix today patient is fairly euvolemic at this time. Cardiology will let further look into his medical records and cardiac history depending on that will decide on oral anticoagulation. 01/13/2020 Patient had an episode of sustained V. tach the patient was a symptomatic at that time patient was started on amiodarone. Patient was also started on Coumadin by cardiology patient can use to be on IV heparin at this time. 01/14/2020 Patient's INR is around 1.6. Patient will be given of 5 mg of Coumadin today patient is also on IV heparin. Patient the AICD is being interrogated at this time patient kidney function remains fairly stable but elevated creatinine. Patient is clinically euvolemic at this time patient was switched to oral amiodarone. 01/15/2020 Patient kidney function has worsened a bit because of which nephrology consult down the dose of Lasix to 40 mg daily. Will to recheck the kidney function tomorrow patient INR is therapeutic IV heparin was discontinued patient is feeling okay overall. Constitutional: Denied any fatigue denied any fever. Cardio vascular: denied any chest pain, palpitations Gastrointestinal denied any nausea vomiting Pulmonary: Denied any shortness of breath cough Neurologic denied any new focal deficits All inpatient medications were reviewed and appropriate changes in these medications as dictated in the interval history and assessment and plan. Objective - Vital Signs Vital signs: Vital Signs Temp 97.6 F 01/15/20 08:00 Pulse 67 01/15/20 08:00 Resp 16 01/15/20 08:00 BP 96/70 01/15/20 09:30 Pulse Ox 94 L 08/09/20 08:00 Intake & Output 01/14/20 01/15/20 01/15/20 18:59 06:59 18:59 Intake Total 157.78 240 250 Output Total 300 450 Balance -142.22 -210 250 Weight 142.6 kg Intake: Intake, IV Titration 157.78 250 Amount Heparin Sod,Pork in 0.45% 157.78 250 NaCl 25,000 unit In 0.45 % NaCl 1 250ml.bag @ 16.6 UNITS/KG/HR 22.908 mls/ hr IV .[id number] [facility] Rx#: [id number] Oral 240 Output: Urine 300 450 Other: # Voids 0 # Bowel Movements 0 - Exam PHYSICAL EXAMINATION: GENERAL: The patient is alert and oriented x3, not in any acute distress. Well developed, well nourished. HEENT: Pupils are round and equally reacting to light. EOMI. No scleral icterus. No conjunctival pallor. Normocephalic, atraumatic. No pharyngeal erythema. No thyromegaly. CARDIOVASCULAR: S1 and S2 present. No murmurs, rubs, or gallops. Improved JVD PULMONARY: Chest is clear to auscultation, no wheezing or crackles. ABDOMEN: Soft, nontender, nondistended, normoactive bowel sounds. No palpable organomegaly. MUSCULOSKELETAL: No joint swelling or deformity. EXTREMITIES: No cyanosis, clubbing, or pedal edema improved NEUROLOGICAL: Gross neurological examination did not reveal any focal deficits. SKIN: No rashes. - Labs CBC & Chem 7: 01/14/20 06:10 01/15/20 05:50 Labs: Abnormal Lab Results - Last 24 Hours (Table) 01/14/20 01/14/20 01/15/20 Range/Units 17:31 20:16 05:50 PT 19.8 H (9.0-12.0) sec INR 2.0 H (<1.2) APTT 138.8 H* (22.0-30.0) sec Sodium (137-145) mmol/L Chloride (98-107) mmol/L BUN (9-20) mg/dL Creatinine (0.66-1.25) mg/dL Glucose (74-99) mg/dL POC Glucose (mg/dL) 120 H 140 H (75-99) mg/dL 01/15/20 01/15/20 01/15/20 Range/Units 05:50 06:09 11:42 PT (9.0-12.0) sec INR (<1.2) APTT (22.0-30.0) sec Sodium 135 L (137-145) mmol/L Chloride 95 L (98-107) mmol/L BUN 60 H (9-20) mg/dL Creatinine 1.74 H (0.66-1.25) mg/dL Glucose 110 H (74-99) mg/dL POC Glucose (mg/dL) 103 H 122 H (75-99) mg/dL Microbiology - Last 24 Hours (Table) 01/10/20 17:28 Blood Culture - Preliminary Blood No Growth after 96 hours Assessment and Plan Plan: -Shortness of breath and acute hypoxic respiratory failure: Secondary to congestive heart failure exacerbation improved now lactic acidosis improved serum creatinine and serum sodium improved. Patient does have an intracardiac thrombus for which patient is on Coumadin therapy can INR. -Intra cardiac thrombus: Patient is presently on IV heparin, started on Coumadin as well. - episode of nonsustained VT for which patient was started on IV amiodarone Gutierrez AICD was interrogated which did not show any malfunctioning -Acute renal failure secondary to prerenal azotemia from congestive heart fa ilure no secondary to excess diuresis diuresis is being cut down at this time -Hypervolemic hyponatremia improved patient is presently but hypovolemic -Lactic acidosis secondary to decreased organ perfusion improved at this time -Pneumonia was ruled out -Recent UTI with enterococcus and E. coli for which we'll continue and complete the course of Augmentin -Hypertension -Continued nicotine use: Counseling was provided -COPD without any acute exacerbation -DVT prophylaxis Lovenox subcutaneous.
[2020-01-15 16:44] LABS: Glucose,Whole Blood 133 mg/dL (75-99)
[2020-01-15] MEDS: WARFARIN 5 MG TAB PO SCH (17:36)
[2020-01-15 20:41] LABS: Glucose,Whole Blood 168 mg/dL (75-99)
[2020-01-16] MEDS: ONDANSETRON 4 MG/2 ML VIAL IVP PRN ×2 (00:46→17:00)
[2020-01-16] MEDS: carvediloL 12.5 MG TAB PO SCH ×2 (06:14→17:00)
[2020-01-16 07:00] LABS: Glucose,Whole Blood 103 mg/dL (75-99)
[2020-01-16] MEDS: INSULIN ASPART (NovoLOG) 100 UNIT/ML VIAL SQ SCH ×4 (07:02→20:58)
[2020-01-16] MEDS: SYMBICORT 160-4.5 MCG INHALER INHALATION SCH ×2 (07:49→20:29)
[2020-01-16] MEDS: ALBUTEROL HFA INHALER INHALATION SCH ×4 (07:49→20:29)
[2020-01-16] MEDS: TIOTROPIUM 18 MCG/PUFF INHALER INHALATION SCH (07:49)
[2020-01-16 08:01] LABS: Calcium 8.6 mg/dL (8.4-10.2)
[2020-01-16 08:17] LABS: Magnesium 2.1 mg/dL (1.6-2.3); Potassium 5.3 mmol/L (3.5-5.1)
[2020-01-16] MEDS: AMIODARONE 200 MG TAB PO SCH ×2 (08:24→20:58)
[2020-01-16] MEDS: AMOXIC-POT CLAV 875-125MG 1 EACH TAB PO SCH ×2 (08:24→20:58)
[2020-01-16] MEDS: ASPIRIN 81 MG PO SCH (08:24)
[2020-01-16] MEDS: FAMOTIDINE 20 MG TAB PO SCH (08:24)
[2020-01-16] MEDS: FUROSEMIDE 40 MG TAB PO SCH (08:25)
[2020-01-16] MEDS: OXYBUTYNIN XL 5 MG TAB.ER.24 PO SCH (08:25)
--- NOTE | 2020-01-16 10:56 | P.PN ---
Subjective Progress Note Date: 01/16/20 CHIEF COMPLAINT: Shortness of breath HISTORY OF PRESENT ILLNESS: Patient examined this morning at the bedside. He denies chest pain or SOB. Nursing denies further episodes of Vtach. He remains on PO amio. Patient has been started on Coumadin and receiving 5mg daily. INR today is 3.2. Creatinine is up to 1.97, from 1.74. He is being following by nephrology. He is receiving 40mg lasix PO daily. PHYSICAL EXAM: VITAL SIGNS: Reviewed. GENERAL: Well-developed in no acute distress. HEENT: Head is normocephalic. Pupils are equal, round. Sclerae anicteric. Mucous membranes of the mouth are moist. Neck supple. No JVD or thyromegaly LUNGS: Respirations even and unlabored. Lungs sounds diminished bilaterally. HEART: Regular rate and rhythm. S1 and S2 heard. ASSESSMENT: 1. Left ventricle thrombus 2. Acute exacerbation of systolic congestive heart failure, EF 20-25% 3. Cardiomyopathy with permanent pacemaker/AICD 4. History of COPD with home oxygen use, 2L PLAN: -Continue oral lasix -Monitor kidney function -Nephrology following -Daily weights and accurate I&O -Continue oral amio 400mg BID for 1 week, then decrease dosing to 200mg BID. -Hold coumadin tonight. Recheck INR in AM. Nurse practitioner note has been reviewed by physician. Signing provider agrees with the documented findings, assessment, and plan of care. Objective - Vital Signs Vital signs: Vital Signs Temp 97.5 F L 01/16/20 08:10 Pulse 60 01/16/20 08:10 Resp 18 01/16/20 08:15 BP 103/79 01/16/20 08:10 Pulse Ox 94 L 01/16/20 08:15 Intake & Output 01/15/20 01/16/20 01/16/20 18:59 06:59 18:59 Intake Total 250 Balance 250 Weight 142.1 kg Intake: Intake, IV Titration 250 Amount Heparin Sod,Pork in 0.45% 250 NaCl 25,000 unit In 0.45 % NaCl 1 250ml.bag @ 16.6 UNITS/KG/HR 22.908 mls/ hr IV .[id number] [facility] Rx#: [id number] Other: # Voids 1 1 - Labs CBC & Chem 7: 01/14/20 06:10 01/16/20 07:20 Labs: Abnormal Lab Results - Last 24 Hours (Table) 01/15/20 01/15/20 01/15/20 Range/Units 11:42 13:55 16:43 PT (9.0-12.0) sec INR (<1.2) APTT 30.2 H (22.0-30.0) sec Sodium (137-145) mmol/L Potassium (3.5-5.1) mmol/L Chloride (98-107) mmol/L BUN (9-20) mg/dL Creatinine (0.66-1.25) mg/dL Glucose (74-99) mg/dL POC Glucose (mg/dL) 122 H 133 H (75-99) mg/dL 01/15/20 01/16/20 01/16/20 Range/Units 20:39 06:48 07:20 PT 31.5 H (9.0-12.0) sec INR 3.2 H (<1.2) APTT (22.0-30.0) sec Sodium (137-145) mmol/L Potassium (3.5-5.1) mmol/L Chloride (98-107) mmol/L BUN (9-20) mg/dL Creatinine (0.66-1.25) mg/dL Glucose (74-99) mg/dL POC Glucose (mg/dL) 168 H 103 H (75-99) mg/dL 01/16/20 Range/Units 07:20 PT (9.0-12.0) sec INR (<1.2) APTT (22.0-30.0) sec Sodium 133 L (137-145) mmol/L Potassium 5.3 H (3.5-5.1) mmol/L Chloride 95 L (98-107) mmol/L BUN 73 H (9-20) mg/dL Creatinine 1.97 H (0.66-1.25) mg/dL Glucose 106 H (74-99) mg/dL POC Glucose (mg/dL) (75-99) mg/dL Microbiology - Last 24 Hours (Table) 01/10/20 17:28 Blood Culture - Preliminary Blood No Growth after 120 hours
--- NOTE | 2020-01-16 11:26 | P.PN ---
Subjective Patient is seen in follow-up for acute kidney injury on chronic kidney disease. Renal function is a little worse due to diuresis. Good urine output. Oral intake fair. states he vomited this morning. No chest pain or shortness of breath. Vital signs are stable. General: The patient appeared well nourished and normally developed. HEENT: Head exam is unremarkable. Neck is without jugular venous distension. LUNGS: Lungs are clear to auscultation and percussion. Breath sounds decreased. HEART: Rate and Rhythm are regular. ABDOMEN: Soft, nontender. EXTREMITITES: 1+ edema. Objective - Vital Signs Vital signs: Vital Signs Temp 97.5 F L 01/16/20 08:10 Pulse 60 01/16/20 08:10 Resp 18 01/16/20 08:15 BP 103/79 01/16/20 08:10 Pulse Ox 94 L 01/16/20 08:15 Intake & Output 01/15/20 01/16/20 01/16/20 18:59 06:59 18:59 Intake Total 250 Balance 250 Weight 142.1 kg Intake: Intake, IV Titration 250 Amount Heparin Sod,Pork in 0.45% 250 NaCl 25,000 unit In 0.45 % NaCl 1 250ml.bag @ 16.6 UNITS/KG/HR 22.908 mls/ hr IV .[id number] [facility] Rx#: [id number] Other: # Voids 1 1 - Labs CBC & Chem 7: 01/14/20 06:10 01/16/20 07:20 Labs: Abnormal Lab Results - Last 24 Hours (Table) 01/15/20 01/15/20 01/15/20 Range/Units 11:42 13:55 16:43 PT (9.0-12.0) sec INR (<1.2) APTT 30.2 H (22.0-30.0) sec Sodium (137-145) mmol/L Potassium (3.5-5.1) mmol/L Chloride (98-107) mmol/L BUN (9-20) mg/dL Creatinine (0.66-1.25) mg/dL Glucose (74-99) mg/dL POC Glucose (mg/dL) 122 H 133 H (75-99) mg/dL 01/15/20 01/16/20 01/16/20 Range/Units 20:39 06:48 07:20 PT 31.5 H (9.0-12.0) sec INR 3.2 H (<1.2) APTT (22.0-30.0) sec Sodium (137-145) mmol/L Potassium (3.5-5.1) mmol/L Chloride (98-107) mmol/L BUN (9-20) mg/dL Creatinine (0.66-1.25) mg/dL Glucose (74-99) mg/dL POC Glucose (mg/dL) 168 H 103 H (75-99) mg/dL 01/16/20 Range/Units 07:20 PT (9.0-12.0) sec INR (<1.2) APTT (22.0-30.0) sec Sodium 133 L (137-145) mmol/L Potassium 5.3 H (3.5-5.1) mmol/L Chloride 95 L (98-107) mmol/L BUN 73 H (9-20) mg/dL Creatinine 1.97 H (0.66-1.25) mg/dL Glucose 106 H (74-99) mg/dL POC Glucose (mg/dL) (75-99) mg/dL Microbiology - Last 24 Hours (Table) 01/10/20 17:28 Blood Culture - Preliminary Blood No Growth after 120 hours Assessment and Plan Plan: Assessment: 1. Acute kidney injury mostly prerenal secondary to cardiorenal syndrome. Renal function worse due to diuresis. Creatinine 1.97 today. 2. Chronic kidney disease stage III secondary to nephrosclerosis. GFR at baseline. 3. Acute on chronic systolic CHF with ejection fraction of 20-25%. 4. V. tach status post amiodarone drip. Cardiology following. 5. Intracardiac thrombus maintained on anticoagulation. Plan: maintain Lasix 40 mg orally once daily. Avoid nephrotoxins. Low-salt diet.
--- NOTE | 2020-01-16 11:40 | P.PN ---
Subjective 61-year-old male was admitted for a heart failure exacerbation. Patient the had an ejection fraction of around 30 to the liver center. Echocardiogram done well here showed EF of around 20-25% patient also has another cardiac intracardiac thrombus patient was started on IV heparin. Medical records which were reviewed by pulmonology from [facility] showed urine cultures positive for enterococcus and E. coli which are both sensitive to Augmentin patient was started back on Augmentin levofloxacin will be discontinued. We'll cut down the Lasix dose of 40 mg every 12 hourly patient had significant urine output and patient pedal edema significant improved. Patient doesn't have any fever chills at this time. Patient's shortness of breath significantly improved. 01/12/2020 Patient will be switched to oral Lasix today patient is fairly euvolemic at this time. Cardiology will let further look into his medical records and cardiac history depending on that will decide on oral anticoagulation. 01/13/2020 Patient had an episode of sustained V. tach the patient was a symptomatic at that time patient was started on amiodarone. Patient was also started on Coumadin by cardiology patient can use to be on IV heparin at this time. 01/14/2020 Patient's INR is around 1.6. Patient will be given of 5 mg of Coumadin today patient is also on IV heparin. Patient the AICD is being interrogated at this time patient kidney function remains fairly stable but elevated creatinine. Patient is clinically euvolemic at this time patient was switched to oral amiodarone. 01/15/2020 Patient kidney function has worsened a bit because of which nephrology consult down the dose of Lasix to 40 mg daily. Will to recheck the kidney function tomorrow patient INR is therapeutic IV heparin was discontinued patient is feeling okay overall. 01/16/2020 Patient's creatinine continued to go up and patient the appears to have volume overload today. Patient is only on 40 mg of Lasix will. Nephrology is managing the diuretics. Patient INR is around 2.2 today. Expected to go up even more because of which are Coumadin is being discontinued at this time. Patient is saturating at 94% on 3 L which is worse than his usual he was saturating 100% on 2 L or less. I'll obtain a chest x-ray looking for pulmonary edema. Constitutional: Denied any fatigue denied any fever. Cardio vascular: denied any chest pain, palpitations Gastrointestinal denied any nausea vomiting Pulmonary: Denied any shortness of breath cough Neurologic denied any new focal deficits All inpatient medications were reviewed and appropriate changes in these medications as dictated in the interval history and assessment and plan. Objective - Vital Signs Vital signs: Vital Signs Temp 97.5 F L 01/16/20 08:10 Pulse 60 01/16/20 08:10 Resp 18 01/16/20 08:15 BP 103/79 01/16/20 08:10 Pulse Ox 94 L 01/16/20 08:15 Intake & Output 01/15/20 01/16/20 01/16/20 18:59 06:59 18:59 Intake Total 250 Balance 250 Weight 142.1 kg Intake: Intake, IV Titration 250 Amount Heparin Sod,Pork in 0.45% 250 NaCl 25,000 unit In 0.45 % NaCl 1 250ml.bag @ 16.6 UNITS/KG/HR 22.908 mls/ hr IV .[id number] [facility] Rx#: [id number] Other: Voiding Method Urinal # Voids 1 1 - Exam PHYSICAL EXAMINATION: GENERAL: The patient is alert and oriented x3, not in any acute distress. Well developed, well nourished. HEENT: Pupils are round and equally reacting to light. EOMI. No scleral icterus. No conjunctival pallor. Normocephalic, atraumatic. No pharyngeal erythema. No thyromegaly. CARDIOVASCULAR: S1 and S2 present. No murmurs, rubs, or gallops. Improved JVD PULMONARY: Chest is clear to auscultation, no wheezing or crackles. ABDOMEN: Soft, nontender, nondistended, normoactive bowel sounds. No palpable organomegaly. MUSCULOSKELETAL: No joint swelling or deformity. EXTREMITIES: No cyanosis, clubbing, pedal edema is bit worse today NEUROLOGICAL: Gross neurological examination did not reveal any focal deficits. SKIN: No rashes. - Labs CBC & Chem 7: 01/14/20 06:10 01/16/20 07:20 Labs: Abnormal Lab Results - Last 24 Hours (Table) 01/15/20 01/15/20 01/15/20 Range/Units 11:42 13:55 16:43 PT (9.0-12.0) sec INR (<1.2) APTT 30.2 H (22.0-30.0) sec Sodium (137-145) mmol/L Potassium (3.5-5.1) mmol/L Chloride (98-107) mmol/L BUN (9-20) mg/dL Creatinine (0.66-1.25) mg/dL Glucose (74-99) mg/dL POC Glucose (mg/dL) 122 H 133 H (75-99) mg/dL 01/15/20 01/16/20 01/16/20 Range/Units 20:39 06:48 07:20 PT 31.5 H (9.0-12.0) sec INR 3.2 H (<1.2) APTT (22.0-30.0) sec Sodium (137-145) mmol/L Potassium (3.5-5.1) mmol/L Chloride (98-107) mmol/L BUN (9-20) mg/dL Creatinine (0.66-1.25) mg/dL Glucose (74-99) mg/dL POC Glucose (mg/dL) 168 H 103 H (75-99) mg/dL 01/16/20 Range/Units 07:20 PT (9.0-12.0) sec INR (<1.2) APTT (22.0-30.0) sec Sodium 133 L (137-145) mmol/L Potassium 5.3 H (3.5-5.1) mmol/L Chloride 95 L (98-107) mmol/L BUN 73 H (9-20) mg/dL Creatinine 1.97 H (0.66-1.25) mg/dL Glucose 106 H (74-99) mg/dL POC Glucose (mg/dL) (75-99) mg/dL Microbiology - Last 24 Hours (Table) 01/10/20 17:28 Blood Culture - Preliminary Blood No Growth after 120 hours Assessment and Plan Plan: -Shortness of breath and acute hypoxic respiratory failure: Secondary to congestive heart failure exacerbation improved now lactic acidosis improved serum creatinine and serum sodium improved. Patient does have an intracardiac thrombus for which patient is on Coumadin, INR today is 3.2 index expected to go up tomorrow because of which Coumadin is being held -We'll start failure chronic systolic dysfunction EF of around 20% with acute exacerbation -Intra cardiac thrombus: Patient is presently on IV heparin, started on Coumadin as well. - episode of nonsustained VT for which patient was started on IV amiodarone , AICD was interrogated which did not show any malfunctioning -Acute renal failure secondary to prerenal azotemia from congestive heart failure, patient is is bit volume overloaded today. I'll obtain a chest x-ray as mentioned above -Hypervolemic hyponatremia improved patient is presently but hypovolemic -Lactic acidosis secondary to decreased organ perfusion improved at this time -Pneumonia was ruled out -Recent UTI with enterococcus and E. coli for which we'll continue and complete the course of Augmentin -Hypertension -Continued nicotine use: Counseling was provided -COPD without any acute exacerbation -DVT prophylaxis Lovenox subcutaneous.
[2020-01-16 11:54] LABS: Glucose,Whole Blood 124 mg/dL (75-99)
[2020-01-16 12:47] VITALS: BMI 39.1
[2020-01-16 12:57] LABS: INR 3.2 (<1.2); Prothrombin Time 31.5 sec (9.0-12.0)
--- NOTE | 2020-01-16 12:58 | XR ---
EXAMINATION TYPE: XR chest 1V portable DATE OF EXAM: 01/16/2020 CLINICAL HISTORY: Difficulty breathing progress study. TECHNIQUE: Single AP portable upright view of the chest is obtained. COMPARISON: Chest x-ray from 5 days earlier FINDINGS: Stable cardiomegaly with dual lead pacemaker/AICD. Atherosclerotic change in the aortic kn ob. Persistent left basilar opacity slightly more prominent. Increasing silhouetting left hemidiaphra gm noted. Right lung remains clear. Osseous structures are intact. IMPRESSION: Cardiomegaly with worsening left basilar acute infiltrate and/or atelectasis noted.
--- NOTE | 2020-01-16 14:02 | P.PN ---
Subjective Progress Note Date: 01/16/20 Principal diagnosis: Shortness of breath related to decompensated heart failure with some background COPD 64-year-old male patient being seen in follow-up regarding his CHF. The patient underwent an echo cardiac of that showed impaired LV function with ejection fraction of 20-25%. At the same time there was a intracardiac thrombus first the patient is on IV heparin for now. He has dilation of the left LV and RV. Pulmonary artery pressure was 52. Still on IV Lasix. Producing adequate amount of urine output. He remains a negative fluid balance. There is improvement in his shortness of breath. Creatinine is down to 1.39 with a BUN of 58. White cell count is at 22. Hemoglobin is at 16.7. No other significant events otherwise for now. He is less short of breath. Hemodynamically stable. On 01/13/2020 patient seen in follow-up on selective care unit, he is awake and alert, in no acute distress, he is currently on room air, has some exertional dyspnea, but appears to be in no acute distress, he currently has 0.9 infusing at a rate of 20 ML per hour, is complaining of some swelling and pain in his right hand at the site of the IV insertion and the IV seems to have infiltrated although there is some blood return. We'll discontinue the right hand IV and replace it, he denies any chest pain, room air pulse ox is 95%, his been afebrile, hemodynamically has been stable. He is on oral Lasix at 40 mg twice daily, nebulized bronchodilators, and Augmentin. His blood cultures have shown no growth. Today's labs have been reviewed, showing white blood cell count of 15.6, hemoglobin 16.5, sodium is 137, potassium is 4.4, chloride is 98, CO2 33, BUN is 53 and creatinine is 1.29. His weight is trending down, patient is maintaining negative fluid balance. He is breathing easier, he remains on heparin infusion for recent history of intracardiac thrombus On 01/16/2020 patient seen in follow-up on selective care unit, he is calm and comfortable, sitting up on edge of bed, nursing reports patient removed his oxygen repeatedly, and usually spearings is no distress however his pulse ox does drop into the 86 range on room air, he is awake and alert, denies any worsening dyspnea, bibasilar crackles on today's exam. He remains on oral Lasix, empiric antibiotics in the form of Augmentin and nebulized bronchodilators, denies any chest pain, denies any cough or congestion or hemoptysis. Mild lower extremity edema with skin changes related to chronic venous insufficiency and underlying pulmonary hypertension Objective - Vital Signs Vital signs: Vital Signs Temp 97.5 F L 01/16/20 08:10 Pulse 66 01/16/20 11:50 Resp 18 01/16/20 11:50 BP 103/83 01/16/20 11:50 Pulse Ox 95 01/16/20 11:50 Intake & Output 01/15/20 01/16/20 01/16/20 18:59 06:59 18:59 Intake Total 250 Balance 250 Weight 142.1 kg 142.1 kg Intake: Intake, IV Titration 250 Amount Heparin Sod,Pork in 0.45% 250 NaCl 25,000 unit In 0.45 % NaCl 1 250ml.bag @ 16.6 UNITS/KG/HR 22.908 mls/ hr IV .[id number] [facility] Rx#: [id number] Other: Voiding Method Urinal # Voids 1 1 - Exam GENERAL EXAM: Alert, very pleasant, 64-year-old obese white male, on 3 L of oxygen with a pulse ox of 95% comfortable in no apparent distress. HEAD: Normocephalic/atraumatic. EYES: Normal reaction of pupils, equal size. Conjunctiva pink, sclera white. NOSE: Clear with pink turbinates. THROAT: No erythema or exudates. NECK: No masses, no JVD, no thyroid enlargement, no adenopathy. CHEST: No chest wall deformity. Symmetrical expansion. LUNGS: Equal air entry with no crackles, wheeze, rhonchi or dullness. CVS: Regular rate and rhythm, normal S1 and S2, no gallops, no murmurs, no rubs ABDOMEN: Soft, nontender. No hepatosplenomegaly, normal bowel sounds, no guarding or rigidity. EXTREMITIES: No clubbing, 1+ lower extremity and abdominal wall edema, chronic venous stasis changes involving lower extremities, no cyanosis, 2+ pulses and upper and lower extremities. MUSCULOSKELETAL: Muscle strength and tone normal. SPINE: No scoliosis or deformity SKIN: No rashes CENTRAL NERVOUS SYSTEM: Alert and oriented -3. No focal deficits, tone is normal in all 4 extremities. PSYCHIATRIC: Alert and oriented -3. Appropriate affect. Intact judgment and insight. - Labs CBC & Chem 7: 01/14/20 06:10 01/16/20 07:20 Labs: Abnormal Lab Results - Last 24 Hours (Table) 01/15/20 01/15/20 01/15/20 Range/Units 13:55 16:43 20:39 PT (9.0-12.0) sec INR (<1.2) APTT 30.2 H (22.0-30.0) sec Sodium (137-145) mmol/L Potassium (3.5-5.1) mmol/L Chloride (98-107) mmol/L BUN (9-20) mg/dL Creatinine (0.66-1.25) mg/dL Glucose (74-99) mg/dL POC Glucose (mg/dL) 133 H 168 H (75-99) mg/dL 01/16/20 01/16/20 01/16/20 Range/Units 06:48 07:20 07:20 PT 31.5 H (9.0-12.0) sec INR 3.2 H (<1.2) APTT (22.0-30.0) sec Sodium 133 L (137-145) mmol/L Potassium 5.3 H (3.5-5.1) mmol/L Chloride 95 L (98-107) mmol/L BUN 73 H (9-20) mg/dL Creatinine 1.97 H (0.66-1.25) mg/dL Glucose 106 H (74-99) mg/dL POC Glucose (mg/dL) 103 H (75-99) mg/dL 01/16/20 Range/Units 11:52 PT (9.0-12.0) sec INR (<1.2) APTT (22.0-30.0) sec Sodium (137-145) mmol/L Potassium (3.5-5.1) mmol/L Chloride (98-107) mmol/L BUN (9-20) mg/dL Creatinine (0.66-1.25) mg/dL Glucose (74-99) mg/dL POC Glucose (mg/dL) 124 H (75-99) mg/dL Microbiology - Last 24 Hours (Table) 01/10/20 17:28 Blood Culture - Preliminary Blood No Growth after 120 hours Assessment and Plan Plan: Assessment: 1 shortness of breath secondary to decompensated heart failure with some background COPD 2 CHF with systolic heart failure ejection fraction of 20-25% 3 possible intracardiac thrombus/clots currently on IV heparin 4 chronic kidney disease and his creatinine is at baseline at 1.5 5 pneumonia is doubtful and the chest x-rays most consistent with CHF 6 enterococcal UTI 7 COPD currently inactive in stable 8 chronic hypoxic respiratory failure secondary to above 9 coronary artery disease with nonocclusive disease based on a previous cardiac catheterization 10 history of acid replacement 11 history of atrial fibrillation 12 secondary pulmonary hypertension related to underlying history of COPD Plan: Patient remains stable from pulmonary perspective, no fever or chills, doubt und erlying pneumonia, Augmentin can be discontinued, his had no fever or chills, continue with Lasix per nephrology and cardiology recommendations, today's chest x-ray shows left basilar acute infiltrate and/or atelectasis. From pulmonary perspective patient could be considered for discharge home. He was started for Coumadin, today's INR is 3.2 for recent history of possible intracardiac thrombus. Continue nebulized bronchodilators. Will need outpatient follow-up in the office with Dr. Hill in 7-10 days I performed a history & physical examination of the patient and discussed their management with my nurse practitioner, Quiana Guevara. I reviewed the nurse practitioner's note and agree with the documented findings and plan of care. Lung sounds are positive for diminished breath sounds. The findings and the impression was discussed with the patient. I attest to the documentation by the nurse practitioner. Time with Patient: Less than 30
[2020-01-16 16:43] LABS: Glucose,Whole Blood 131 mg/dL (75-99)
[2020-01-16] MEDS ORDERED: WARFARIN 3 MG TAB PO SCH (18:00)
[2020-01-16 20:25] LABS: Glucose,Whole Blood 147 mg/dL (75-99)
[2020-01-17 06:12] LABS: Glucose,Whole Blood 113 mg/dL (75-99)
[2020-01-17] MEDS: INSULIN ASPART (NovoLOG) 100 UNIT/ML VIAL SQ SCH ×4 (06:23→20:15)
[2020-01-17] MEDS: carvediloL 12.5 MG TAB PO SCH ×2 (06:27→17:47)
[2020-01-17 07:50] LABS: Calcium 8.8 mg/dL (8.4-10.2); Magnesium 2.2 mg/dL (1.6-2.3)
[2020-01-17 07:53] LABS: Potassium 5.3 mmol/L (3.5-5.1)
[2020-01-17] MEDS: ALBUTEROL HFA INHALER INHALATION SCH ×4 (08:41→20:35)
[2020-01-17] MEDS: AMIODARONE 200 MG TAB PO SCH ×2 (09:31→20:15)
[2020-01-17] MEDS: OXYBUTYNIN XL 5 MG TAB.ER.24 PO SCH (09:31)
[2020-01-17] MEDS: AMOXIC-POT CLAV 875-125MG 1 EACH TAB PO SCH ×2 (09:31→20:15)
[2020-01-17] MEDS: FAMOTIDINE 20 MG TAB PO SCH (09:31)
[2020-01-17] MEDS: ASPIRIN 81 MG PO SCH (09:31)
[2020-01-17] MEDS: FUROSEMIDE 40 MG TAB PO SCH (09:31)
[2020-01-17 10:08] LABS: Prothrombin Time 36.5 sec (9.0-12.0)
[2020-01-17 10:20] LABS: INR 3.7 (<1.2)
--- NOTE | 2020-01-17 11:33 | PN ---
PROGRESS NOTE Mr. Talavera is a 64-year-old male who presented with symptoms of worsening dyspnea. He has a history of cardiomyopathy. He is feeling better overall. He denies any symptoms of chest discomfort. He denies any dizziness or palpitation. He is supine without any difficulty. He overall feeling better. He continues to be on amiodarone 400 mg twice a day, aspirin once a day, carvedilol 12.5 mg twice a day, Lasix 40 mg daily. PHYSICAL EXAMINATION: Blood pressure 90s to 110 with a heart rate in the 60s. LUNGS: No wheezes or rales. HEART: Regular rate and rhythm, S1, S2. No S3 with a systolic ejection murmur heard at the base. No diastolic murmur, no rub. ABDOMEN: Soft, obese, nontender. EXTREMITIES: 1+ edema bilaterally. His echocardiogram has shown a severely impaired left ventricular systolic function. LAB DATA: Revealed BUN and creatinine 76 and 1.89. That was slightly better than yesterday. His potassium 5.3. IMPRESSION: 1. Symptoms of progressive dyspnea with congestive heart failure on the basis of systolic dysfunction. 2. History of ICD implantation. 3. Chronic kidney disease. 4. History of cardiomyopathy, chronic. 5. Ventricular ectopic activity. RECOMMENDATION: I will decrease the dose of his amiodarone. Patient's echocardiogram showed a mild mitral and tricuspid regurgitation. He had a global hypokinesis. Will increase his level of activity, follow his renal function. If he is stable, I am hopeful that he will be able to be discharged home soon and followed as an outpatient at this time. Will continue on the present therapy. He is not a candidate for CHAU inhibitor because of his renal function abnormalities and his blood pressure is on the low side, so hydralazine will not be added yet. MMODL / IJN: [id number] /
[2020-01-17 12:01] LABS: Glucose,Whole Blood 175 mg/dL (75-99)
--- NOTE | 2020-01-17 12:31 | P.PN ---
Subjective Patient is seen in follow-up for acute kidney injury on chronic kidney disease. Renal function stable. Good urine output. Oral intake fair. No chest pain or shortness of breath. Blood sugar stable. Blood pressure on the lower side. Vital signs are stable. General: The patient appeared well nourished and normally developed. HEENT: Head exam is unremarkable. Neck is without jugular venous distension. LUNGS: Lungs are clear to auscultation and percussion. Breath sounds decreased. HEART: Rate and Rhythm are regular. ABDOMEN: Soft, nontender. EXTREMITITES: 1+ edema. Objective - Vital Signs Vital signs: Vital Signs Temp 97.5 F L 01/16/20 17:00 Pulse 67 01/17/20 03:44 Resp 18 01/17/20 03:44 BP 93/72 01/17/20 03:42 Pulse Ox 92 L 01/17/20 03:42 Intake & Output 01/16/20 01/17/20 01/17/20 18:59 06:59 18:59 Intake Total 240 400 Output Total 220 Balance 240 -220 400 Weight 142.1 kg 139.4 kg Intake: Oral 240 400 Output: Urine 220 Other: Voiding Method Urinal # Voids 1 1 - Labs CBC & Chem 7: 01/14/20 06:10 01/17/20 07:17 Labs: Abnormal Lab Results - Last 24 Hours (Table) 01/16/20 01/16/20 01/16/20 Range/Units 07: 16:42 20:23 PT 31.5 H (9.0-12.0) sec INR 3.2 H (<1.2) Sodium (137-145) mmol/L Potassium (3.5-5.1) mmol/L Chloride (98-107) mmol/L BUN (9-20) mg/dL Creatinine (0.66-1.25) mg/dL Glucose (74-99) mg/dL POC Glucose (mg/dL) 131 H 147 H (75-99) mg/dL 01/17/20 01/17/20 01/17/20 Range/Units 06:10 07:17 09:25 PT 36.5 H (9.0-12.0) sec INR 3.7 H (<1.2) Sodium 130 L (137-145) mmol/L Potassium 5.3 H (3.5-5.1) mmol/L Chloride 95 L (98-107) mmol/L BUN 76 H (9-20) mg/dL Creatinine 1.89 H (0.66-1.25) mg/dL Glucose 106 H (74-99) mg/dL POC Glucose (mg/dL) 113 H (75-99) mg/dL 01/17/20 Range/Units 11:45 PT (9.0-12.0) sec INR (<1.2) Sodium (137-145) mmol/L Potassium (3.5-5.1) mmol/L Chloride (98-107) mmol/L BUN (9-20) mg/dL Creatinine (0.66-1.25) mg/dL Glucose (74-99) mg/dL POC Glucose (mg/dL) 175 H (75-99) mg/dL Microbiology - Last 24 Hours (Table) 01/10/20 17:28 Blood Culture - Final Blood No Growth after 144 hours Assessment and Plan Plan: Assessment: 1. Acute kidney injury mostly prerenal secondary to cardiorenal syndrome. Renal function stable. Creatinine 1.89 today. 2. Chronic kidney disease stage III secondary to nephrosclerosis. 3. Acute on chronic systolic CHF with ejection fraction of 20-25%. 4. V. tach status post amiodarone drip. Cardiology following. 5. Intracardiac thrombus maintained on anticoagulation. Plan: Maintain Lasix 40 mg orally once daily. Avoid nephrotoxins. Low-salt diet. Continue to monitor renal function and urine output.
[2020-01-17] MEDS: TIOTROPIUM 18 MCG/PUFF INHALER INHALATION SCH (12:50)
[2020-01-17] MEDS: SYMBICORT 160-4.5 MCG INHALER INHALATION SCH ×2 (12:50→20:35)
--- NOTE | 2020-01-17 14:45 | P.PN ---
<Nilda Meier - Last Filed: 01/17/20 14:29> Subjective Progress Note Date: 01/17/20 Principal diagnosis: 61-year-old male was admitted for a heart failure exacerbation. Patient the had an ejection fraction of around 30 to the liver center. Echocardiogram done well here showed EF of around 20-25% patient also has another cardiac intracardiac thrombus patient was started on IV heparin. Medical records which were reviewed by pulmonology from [facility] showed urine cultures positive for enterococcus and E. coli which are both sensitive to Augmentin patient was started back on Augmentin levofloxacin will be discontinued. We'll cut down the Lasix dose of 40 mg every 12 hourly patient had significant urine output and patient pedal edema significant improved. Patient doesn't have any fever chills at this time. Patient's shortness of breath significantly improved. 01/12/2020 Patient will be switched to oral Lasix today patient is fairly euvolemic at this time. Cardiology will let further look into his medical records and cardiac history depending on that will decide on oral anticoagulation. 01/13/2020 Patient had an episode of sustained V. tach the patient was a symptomatic at that time patient was started on amiodarone. Patient was also started on Coumadin by cardiology patient can use to be on IV heparin at this time. 01/14/2020 Patient's INR is around 1.6. Patient will be given of 5 mg of Coumadin today patient is also on IV heparin. Patient the AICD is being interrogated at this time patient kidney function remains fairly stable but elevated creatinine. Patient is clinically euvolemic at this time patient was switched to oral amiodarone. 01/15/2020 Patient kidney function has worsened a bit because of which nephrology consult down the dose of Lasix to 40 mg daily. Will to recheck the kidney function tomorrow patient INR is therapeutic IV heparin was discontinued patient is feeling okay overall. 01/16/2020 Patient's creatinine continued to go up and patient the appears to have volume overload today. Patient is only on 40 mg of Lasix will. Nephrology is managing the diuretics. Patient INR is around 2.2 today. Expected to go up even more because of which are Coumadin is being discontinued at this time. Patient is saturating at 94% on 3 L which is worse than his usual he was saturating 100% on 2 L or less. I'll obtain a chest x-ray looking for pulmonary edema. Constitutional: Denied any fatigue denied any fever. Cardio vascular: denied any chest pain, palpitations Gastrointestinal denied any nausea vomiting Pulmonary: Denied any shortness of breath cough Neurologic denied any new focal deficits All inpatient medications were reviewed and appropriate changes in these medications as dictated in the interval history and assessment and plan. 01/17/2020 Patient is seen and evaluated and follow-up in kidney functions is slightly improved and creatinine is currently 1.89. INR today is 3.7 and Coumadin has been on hold. Chest x-ray continues to show left basilar infiltrates and/or atelectasis with cardiomegaly. Multiple medical consultations including nephrology and cardiology and pulmonary following. Adjustments have been made to his amiodarone. Patient continues to be quite weak and has been evaluated by PT/OT recommending subacute rehab once stabilized and discharged. Case management and social work following working on placement at an ECF. She is maintained on breathing inhalational treatments along with oral Augmentin and will continue at this time. Patient is currently on 40 mg of oral Lasix daily and will continue at this time. Patient currently denies any chest pain or palpitations. Patient continues to have some shortness of breath. Patient is afebrile. No reports of nausea or vomiting and patient is tolerating diet. Objective - Vital Signs Vital signs: Vital Signs Temp 97.9 F 01/17/20 08:00 Pulse 67 01/17/20 08:00 Resp 16 01/17/20 08:00 BP 98/55 01/17/20 08:00 Pulse Ox 92 L 01/17/20 08:00 Intake & Output 01/16/20 01/17/20 01/17/20 18:59 06:59 18:59 Intake Total 240 400 Output Total 220 Balance 240 -220 400 Weight 142.1 kg 139.4 kg Intake: Oral 240 400 Output: Urine 220 Other: Voiding Method Urinal Urinal # Voids 1 1 2 - Exam GENERAL: The patient is alert and oriented x3, not in any acute distress. Well developed, well nourished. HEENT: Pupils are round and equally reacting to light. EOMI. No scleral icterus. No conjunctival pallor. Normocephalic, atraumatic. No pharyngeal erythema. No thyromegaly. CARDIOVASCULAR: S1 and S2 present. No murmurs, rubs, or gallops. Improved JVD PULMONARY: Diminished breath sounds at the bases with a few scattered rhonchi noted, no wheezing or crackles. ABDOMEN: Soft, nontender, nondistended, normoactive bowel sounds. No palpable organomegaly. MUSCULOSKELETAL: No joint swelling or deformity. EXTREMITIES: No cyanosis, clubbing, pedal edema is bit worse today NEUROLOGICAL: Gross neurological examination did not reveal any focal deficits. Diffusely weak SKIN: No rashes. - Labs CBC & Chem 7: 01/14/20 06:10 01/17/20 07:17 Labs: Abnormal Lab Results - Last 24 Hours (Table) 01/16/20 01/16/20 01/17/20 Range/Units 16:42 20:23 06:10 PT (9.0-12.0) sec INR (<1.2) Sodium (137-145) mmol/L Potassium (3.5-5.1) mmol/L Chloride (98-107) mmol/L BUN (9-20) mg/dL Creatinine (0.66-1.25) mg/dL Glucose (74-99) mg/dL POC Glucose (mg/dL) 131 H 147 H 113 H (75-99) mg/dL 01/17/20 01/17/20 01/17/20 Range/Units 07:17 09:25 11:45 PT 36.5 H (9.0-12.0) sec INR 3.7 H (<1.2) Sodium 130 L (137-145) mmol/L Potassium 5.3 H (3.5-5.1) mmol/L Chloride 95 L (98-107) mmol/L BUN 76 H (9-20) mg/dL Creatinine 1.89 H (0.66-1.25) mg/dL Glucose 106 H (74-99) mg/dL POC Glucose (mg/dL) 175 H (75-99) mg/dL Microbiology - Last 24 Hours (Table) 01/10/20 17:28 Blood Culture - Final Blood No Growth after 144 hours Assessment and Plan Assessment: -Shortness of breath and acute hypoxic respiratory failure: Secondary to congestive heart failure exacerbation improved now lactic acidosis improved serum creatinine and serum sodium improved. Patient does have an intracardiac thrombus for which patient is on Coumadin, INR today is 3.7, because of which Coumadin is being held -Congestive heart failure chronic systolic dysfunction EF of around 20% with acute exacerbation -Intracardiac thrombus -episode of nonsustained VT for which patient was started on IV amiodarone , AICD was interrogated which did not show any malfunctioning, patient has been transitioned oral amiodarone and being decreased to 200 mg twice daily. Cardiology following -Acute renal failure secondary to prerenal azotemia from congestive heart failure, nephrology following, creatinine slightly improved at 1.89 today, patient is maintained on 40 mg of Lasix daily -Hypervolemic hyponatremia improved patient is presently but hypovolemic -Lactic acidosis secondary to decreased organ perfusion improved at this time -Pneumonia was ruled out -Recent UTI with enterococcus and E. coli for which we'll continue and complete the course of Augmentin -Hypertension -Continued nicotine use: Counseling was provided -COPD without any acute exacerbation -DVT prophylaxis Lovenox subcutaneous. -GI prophylaxis: Pepcid Plan: Continue current medications, management, and symptomatic treatment. Patient is maintained on oral antibiotics and will continue at this time. To continue with breathing inhalational treatments and oral Lasix. Multiple medical consultations following. Case management and social work also following and working on ECF placement upon discharge. Will repeat a.m. labs. Further recommendations to follow. <Any Ordoñez - Last Filed: 01/17/20 23:21> Objective - Vital Signs Vital signs: Vital Signs Temp 98.7 F 01/17/20 20:00 Pulse 55 L 01/17/20 20:00 Resp 20 01/17/20 20:00 BP 133/72 01/17/20 20:00 Pulse Ox 96 01/17/20 20:00 Intake & Output 01/17/20 01/17/20 01/18/20 06:59 18:59 06:59 Intake Total 520 Output Total 220 275 Balance -220 520 -275 Weight 139.4 kg Intake: Oral 520 Output: Urine 220 275 Other: Voiding Method Urinal Urinal # Voids 1 2 - Labs CBC & Chem 7: 01/14/20 06:10 01/17/20 07:17 Labs: Abnormal Lab Results - Last 24 Hours (Table) 01/17/20 01/17/20 01/17/20 Range/Units 06:10 07:17 09:25 PT 36.5 H (9.0-12.0) sec INR 3.7 H (<1.2) Sodium 130 L (137-145) mmol/L Potassium 5.3 H (3.5-5.1) mmol/L Chloride 95 L (98-107) mmol/L BUN 76 H (9-20) mg/dL Creatinine 1.89 H (0.66-1.25) mg/dL Glucose 106 H (74-99) mg/dL POC Glucose (mg/dL) 113 H (75-99) mg/dL 01/17/20 01/17/20 01/17/20 Range/Units 11:45 16:50 20:08 PT (9.0-12.0) sec INR (<1.2) Sodium (137-145) mmol/L Potassium (3.5-5.1) mmol/L Chloride (98-107) mmol/L BUN (9-20) mg/dL Creatinine (0.66-1.25) mg/dL Glucose (74-99) mg/dL POC Glucose (mg/dL) 175 H 101 H 169 H (75-99) mg/dL Microbiology - Last 24 Hours (Table) 01/10/20 17:28 Blood Culture - Final Blood No Growth after 144 hours Assessment and Plan Assessment: Acute CHF exacerbation - on PO Lasix, Non sustained V tach - on PO amiodarone and Creatinine trending down gradually . I saw and evaluated the patient, and I reviewed and discussed the patient with my nurse practitioner, Nilda Meier and agree with the above findings and plans as documented above.
[2020-01-17 16:51] LABS: Glucose,Whole Blood 101 mg/dL (75-99)
[2020-01-17 20:10] LABS: Glucose,Whole Blood 169 mg/dL (75-99)
[2020-01-18 06:17] LABS: Glucose,Whole Blood 97 mg/dL (75-99)
[2020-01-18] MEDS: carvediloL 12.5 MG TAB PO SCH ×2 (06:42→18:27)
[2020-01-18] MEDS: INSULIN ASPART (NovoLOG) 100 UNIT/ML VIAL SQ SCH ×4 (06:42→21:41)
[2020-01-18 08:01] LABS: Basophils # (A) 0.1 k/uL (0-0.2); Basophils % (A) 1 %; Eosinophils # (A) 0.1 k/uL (0-0.7); Eosinophils % (A) 0 %; HGB 17.4 gm/dL (13.0-17.5); Hypochromasia Marked; Lymphocytes % (A) 6 %; MCH 30.3 pg (25.0-35.0); MCHC 30.5 g/dL (31.0-37.0); MCV 99.3 fL (80.0-100.0); Macrocytosis Slight; Mean Platelet Volume 8.6; Monocytes # (A) 1.1 k/uL (0-1.0); Monocytes % (A) 7 %; Neutrophils # (A) 13.4 k/uL (1.3-7.7); Neutrophils % (A) 83 %; Platelet Count 125 k/uL (150-450); RBC 5.72 m/uL (4.30-5.90); RDW 14.9 % (11.5-15.5); WBC 16.1 k/uL (3.8-10.6)
[2020-01-18] MEDS: TIOTROPIUM 18 MCG/PUFF INHALER INHALATION SCH (08:09)
[2020-01-18] MEDS: SYMBICORT 160-4.5 MCG INHALER INHALATION SCH ×2 (08:09→20:32)
[2020-01-18] MEDS: ALBUTEROL HFA INHALER INHALATION SCH ×4 (08:09→20:32)
[2020-01-18 08:11] LABS: Prothrombin Time 30.2 sec (9.0-12.0)
[2020-01-18 08:13] LABS: HCT 56.9 % (39.0-53.0)
[2020-01-18 08:26] LABS: INR 3.1 (<1.2)
[2020-01-18] MEDS: AMOXIC-POT CLAV 875-125MG 1 EACH TAB PO SCH (09:55)
[2020-01-18] MEDS: AMIODARONE 200 MG TAB PO SCH ×3 (09:55→20:03)
[2020-01-18] MEDS: FUROSEMIDE 40 MG TAB PO SCH (09:55)
[2020-01-18] MEDS: FAMOTIDINE 20 MG TAB PO SCH (09:55)
[2020-01-18] MEDS: ASPIRIN 81 MG PO SCH (09:55)
[2020-01-18] MEDS: OXYBUTYNIN XL 5 MG TAB.ER.24 PO SCH (09:55)
[2020-01-18 12:07] LABS: Glucose,Whole Blood 148 mg/dL (75-99)
--- NOTE | 2020-01-18 13:01 | P.PN ---
Subjective Progress Note Date: 01/18/20 CHIEF COMPLAINT: Shortness of breath HISTORY OF PRESENT ILLNESS: Patient examined this morning at the bedside. He denies chest pain or SOB. He remains on PO amio with no further ventricular arrhythmias. He remains on oral Lasix 40 mg daily. Coumadin has been on hold secondary to elevated INR. INR today 3.1. PHYSICAL EXAM: VITAL SIGNS: Reviewed. GENERAL: Well-developed in no acute distress. HEENT: Head is normocephalic. Pupils are equal, round. Sclerae anicteric. Mucous membranes of the mouth are moist. Neck supple. No JVD or thyromegaly LUNGS: Respirations even and unlabored. Lungs sounds diminished bilaterally. HEART: Regular rate and rhythm. S1 and S2 heard. ASSESSMENT: 1. Left ventricle thrombus 2. Acute exacerbation of systolic congestive heart failure, EF 20-25% 3. Cardiomyopathy with permanent pacemaker/AICD 4. History of COPD with home oxygen use, 2L PLAN: -Continue oral lasix -Monitor kidney function -Nephrology following -Daily weights and accurate I&O -Continue current dose of amiodarone -Hold coumadin tonight. Recheck INR in AM. If INR is less than 3 tomorrow will resume Coumadin tomorrow at a lower dose than previously administered Nurse practitioner note has been reviewed by physician. Signing provider agrees with the documented findings, assessment, and plan of care. Objective - Vital Signs Vital signs: Vital Signs Temp 98.1 F 01/18/20 08:00 Pulse 64 01/18/20 08:00 Resp 18 01/18/20 08:00 BP 92/0 01/18/20 08:00 Pulse Ox 97 01/18/20 08:00 Intake & Output 01/17/20 01/18/20 01/18/20 18:59 06:59 18:59 Intake Total 520 Output Total 275 Balance 520 -275 Weight 141.8 kg Intake: Oral 520 Output: Urine 275 Other: Voiding Method Urinal Urinal Urinal # Voids 2 2 - Labs CBC & Chem 7: 01/18/20 07:02 01/17/20 07:17 Labs: Abnormal Lab Results - Last 24 Hours (Table) 01/17/20 01/17/20 01/18/20 Range/Units 16:50 20:08 07:02 WBC (3.8-10.6) k/uL Hct (39.0-53.0) % MCHC (31.0-37.0) g/dL Plt Count (150-450) k/uL Neutrophils # (1.3-7.7) k/uL Monocytes # (0-1.0) k/uL PT 30.2 H (9.0-12.0) sec INR 3.1 H (<1.2) POC Glucose (mg/dL) 101 H 169 H (75-99) mg/dL 01/18/20 01/18/20 Range/Units 07:02 12:01 WBC 16.1 H (3.8-10.6) k/uL Hct 56.9 H (39.0-53.0) % MCHC 30.5 L (31.0-37.0) g/dL Plt Count 125 L (150-450) k/uL Neutrophils # 13.4 H (1.3-7.7) k/uL Monocytes # 1.1 H (0-1.0) k/uL PT (9.0-12.0) sec INR (<1.2) POC Glucose (mg/dL) 148 H (75-99) mg/dL
[2020-01-18 13:13] LABS: Calcium 8.3 mg/dL (8.4-10.2); Magnesium 2.4 mg/dL (1.6-2.3)
[2020-01-18 13:16] LABS: Potassium 4.8 mmol/L (3.5-5.1)
--- NOTE | 2020-01-18 14:28 | P.PN ---
Subjective Progress Note Date: 01/18/20 Principal diagnosis: 61-year-old male was admitted for a heart failure exacerbation. Patient the had an ejection fraction of around 30 to the liver center. Echocardiogram done well here showed EF of around 20-25% patient also has another cardiac intracardiac thrombus patient was started on IV heparin. Medical records which were reviewed by pulmonology from [facility] showed urine cultures positive for enterococcus and E. coli which are both sensitive to Augmentin patient was started back on Augmentin levofloxacin will be discontinued. We'll cut down the Lasix dose of 40 mg every 12 hourly patient had significant urine output and patient pedal edema significant improved. Patient doesn't have any fever chills at this time. Patient's shortness of breath significantly improved. 01/12/2020 Patient will be switched to oral Lasix today patient is fairly euvolemic at this time. Cardiology will let further look into his medical records and cardiac history depending on that will decide on oral anticoagulation. 01/13/2020 Patient had an episode of sustained V. tach the patient was a symptomatic at that time patient was started on amiodarone. Patient was also started on Coumadin by cardiology patient can use to be on IV heparin at this time. 01/14/2020 Patient's INR is around 1.6. Patient will be given of 5 mg of Coumadin today patient is also on IV heparin. Patient the AICD is being interrogated at this time patient kidney function remains fairly stable but elevated creatinine. Patient is clinically euvolemic at this time patient was switched to oral amiodarone. 01/15/2020 Patient kidney function has worsened a bit because of which nephrology consult down the dose of Lasix to 40 mg daily. Will to recheck the kidney function tomorrow patient INR is therapeutic IV heparin was discontinued patient is feeling okay overall. 01/16/2020 Patient's creatinine continued to go up and patient the appears to have volume overload today. Patient is only on 40 mg of Lasix will. Nephrology is managing the diuretics. Patient INR is around 2.2 today. Expected to go up even more because of which are Coumadin is being discontinued at this time. Patient is saturating at 94% on 3 L which is worse than his usual he was saturating 100% on 2 L or less. I'll obtain a chest x-ray looking for pulmonary edema. Constitutional: Denied any fatigue denied any fever. Cardio vascular: denied any chest pain, palpitations Gastrointestinal denied any nausea vomiting Pulmonary: Denied any shortness of breath cough Neurologic denied any new focal deficits All inpatient medications were reviewed and appropriate changes in these medications as dictated in the interval history and assessment and plan. 01/17/2020 Patient is seen and evaluated and follow-up in kidney functions is slightly improved and creatinine is currently 1.89. INR today is 3.7 and Coumadin has been on hold. Chest x-ray continues to show left basilar infiltrates and/or at electasis with cardiomegaly. Multiple medical consultations including nephrology and cardiology and pulmonary following. Adjustments have been made to his amiodarone. Patient continues to be quite weak and has been evaluated by PT/OT recommending subacute rehab once stabilized and discharged. Case management and social work following working on placement at an ECF. She is maintained on breathing inhalational treatments along with oral Augmentin and will continue at this time. Patient is currently on 40 mg of oral Lasix daily and will continue at this time. Patient currently denies any chest pain or palpitations. Patient continues to have some shortness of breath. Patient is afebrile. No reports of nausea or vomiting and patient is tolerating diet. 01/18/2020 Patient is seen and evaluated and follow-up currently sitting up in the chair continues to be very lethargic and weak. Multiple medical consultations following including pulmonary, cardiology, nephrology. Patient to continue on current dose of oral Lasix at 40 mg daily. Abdomen slightly improved at 1.78 today with a BUNs of 79. Magnesium is 2.4. INR today is 3.1 and will continue to hold Coumadin and recheck labs in the morning. Case management and social work following as patient will be going to ECF once stabilized and discharged. Patient to continue with breathing treatments at this time. Instructed the patient to increase activity as tolerated and needs much encouragement. Currently patient denies any chest pain, worsening shortness of breath, or palpitations. Patient is afebrile. No reports of nausea or vomiting and patient is tolerating diet. Objective - Vital Signs Vital signs: Vital Signs Temp 98.1 F 01/18/20 08:00 Pulse 64 01/18/20 08:00 Resp 18 01/18/20 08:00 BP 92/0 01/18/20 08:00 Pulse Ox 97 01/18/20 08:00 Intake & Output 01/17/20 01/18/20 01/18/20 18:59 06:59 18:59 Intake Total 520 Output Total 275 Balance 520 -275 Weight 141.8 kg Intake: Oral 520 Output: Urine 275 Other: Voiding Method Urinal Urinal Urinal # Voids 2 2 - Exam GENERAL: The patient is alert and oriented x3, not in any acute distress. Lethargic. Well developed, well nourished. HEENT: Pupils are round and equally reacting to light. EOMI. No scleral icterus. No conjunctival pallor. Normocephalic, atraumatic. No pharyngeal erythema. No thyromegaly. CARDIOVASCULAR: S1 and S2 present. No murmurs, rubs, or gallops. Improved JVD PULMONARY: Diminished breath sounds at the bases with a few scattered rhonchi noted, no wheezing or crackles. ABDOMEN: Soft, nontender, nondistended, normoactive bowel sounds. No palpable organomegaly. MUSCULOSKELETAL: No joint swelling or deformity. EXTREMITIES: No cyanosis, clubbing, pedal edema noted NEUROLOGICAL: Gross neurological examination did not reveal any focal deficits. Diffusely weak SKIN: No rashes. - Labs CBC & Chem 7: 01/18/20 07:02 01/18/20 12:19 Labs: Abnormal Lab Results - Last 24 Hours (Table) 01/17/20 01/17/20 01/18/20 Range/Units 16:50 20:08 07:02 WBC (3.8-10.6) k/uL Hct (39.0-53.0) % MCHC (31.0-37.0) g/dL Plt Count (150-450) k/uL Neutrophils # (1.3-7.7) k/uL Monocytes # (0-1.0) k/uL PT 30.2 H (9.0-12.0) sec INR 3.1 H (<1.2) Sodium (137-145) mmol/L Chloride (98-107) mmol/L Carbon Dioxide (22-30) mmol/L BUN (9-20) mg/dL Creatinine (0.66-1.25) mg/dL Glucose (74-99) mg/dL POC Glucose (mg/dL) 101 H 169 H (75-99) mg/dL Calcium (8.4-10.2) mg/dL Magnesium (1.6-2.3) mg/dL 01/18/20 01/18/20 01/18/20 Range/Units 07:02 12:01 12:19 WBC 16.1 H (3.8-10.6) k/uL Hct 56.9 H (39.0-53.0) % MCHC 30.5 L (31.0-37.0) g/dL Plt Count 125 L (150-450) k/uL Neutrophils # 13.4 H (1.3-7.7) k/uL Monocytes # 1.1 H (0-1.0) k/uL PT (9.0-12.0) sec INR (<1.2) Sodium 132 L (137-145) mmol/L Chloride 90 L (98-107) mmol/L Carbon Dioxide 31 H (22-30) mmol/L BUN 79 H (9-20) mg/dL Creatinine 1.78 H (0.66-1.25) mg/dL Glucose 101 H (74-99) mg/dL POC Glucose (mg/dL) 148 H (75-99) mg/dL Calcium 8.3 L (8.4-10.2) mg/dL Magnesium 2.4 H (1.6-2.3) mg/dL Assessment and Plan Assessment: -Shortness of breath and acute hypoxic respiratory failure: Secondary to congestive heart failure exacerbation improved now lactic acidosis improved serum creatinine and serum sodium improved. Patient does have an intracardiac thrombus for which patient is on Coumadin, INR today is 3.1, because of which Coumadin is being held, will repeat a.m. labs and monitor INR closely. -Congestive heart failure chronic systolic dysfunction EF of around 20% with acute exacerbation -Intracardiac thrombus -episode of nonsustained VT for which patient was started on IV amiodarone , AICD was interrogated which did not show any malfunctioning, patient has been transitioned oral amiodarone and being decreased to 200 mg twice daily. Cardiology following -Acute renal failure secondary to prerenal azotemia from congestive heart failure, nephrology following, creatinine slightly improved at 1.78 today, patient is maintained on 40 mg of Lasix daily -Hypervolemic hyponatremia improved patient is presently but hypovolemic -Lactic acidosis secondary to decreased organ perfusion improved at this time -Pneumonia was ruled out -Recent UTI with enterococcus and E. coli -Hypertension -Continued nicotine use: Counseling was provided -COPD without any acute exacerbation -DVT prophylaxis -GI prophylaxis: Pepcid Plan: Continue current medications, management, and symptomatic treatment. To continue with breathing inhalational treatments and oral Lasix. Multiple medical consultations following. Continue to encourage increase in activity. Case management and social work also following and working on ECF placement upon discharge. Will repeat a.m. labs. Further recommendations to follow.
--- NOTE | 2020-01-18 15:05 | P.PN ---
Subjective Patient is seen in follow-up for acute kidney injury on chronic kidney disease. Renal function stable. Good urine output. Oral intake fair. No chest pain or shortness of breath. Blood pressure on the lower side. Feels weak. Vital signs are stable. General: The patient appeared well nourished and normally developed. HEENT: Head exam is unremarkable. Neck is without jugular venous distension. LUNGS: Lungs are clear to auscultation and percussion. Breath sounds decreased. HEART: Rate and Rhythm are regular. ABDOMEN: Soft, nontender. EXTREMITITES: 1+ edema. Objective - Vital Signs Vital signs: Vital Signs Temp 98.1 F 01/18/20 08:00 Pulse 64 01/18/20 08:00 Resp 18 01/18/20 08:00 BP 92/0 01/18/20 08:00 Pulse Ox 97 01/18/20 08:00 Intake & Output 01/17/20 01/18/20 01/18/20 18:59 06:59 18:59 Intake Total 520 Output Total 275 Balance 520 -275 Weight 141.8 kg Intake: Oral 520 Output: Urine 275 Other: Voiding Method Urinal Urinal Urinal # Voids 2 2 - Labs CBC & Chem 7: 01/18/20 07:02 01/18/20 12:19 Labs: Abnormal Lab Results - Last 24 Hours (Table) 01/17/20 01/17/20 01/18/20 Range/Units 16:50 20:08 07:02 WBC (3.8-10.6) k/uL Hct (39.0-53.0) % MCHC (31.0-37.0) g/dL Plt Count (150-450) k/uL Neutrophils # (1.3-7.7) k/uL Monocytes # (0-1.0) k/uL PT 30.2 H (9.0-12.0) sec INR 3.1 H (<1.2) Sodium (137-145) mmol/L Chloride (98-107) mmol/L Carbon Dioxide (22-30) mmol/L BUN (9-20) mg/dL Creatinine (0.66-1.25) mg/dL Glucose (74-99) mg/dL POC Glucose (mg/dL) 101 H 169 H (75-99) mg/dL Calcium (8.4-10.2) mg/dL Magnesium (1.6-2.3) mg/dL 01/18/20 01/18/20 01/18/20 Range/Units 07:02 12:01 12:19 WBC 16.1 H (3.8-10.6) k/uL Hct 56.9 H (39.0-53.0) % MCHC 30.5 L (31.0-37.0) g/dL Plt Count 125 L (150-450) k/uL Neutrophils # 13.4 H (1.3-7.7) k/uL Monocytes # 1.1 H (0-1.0) k/uL PT (9.0-12.0) sec INR (<1.2) Sodium 132 L (137-145) mmol/L Chloride 90 L (98-107) mmol/L Carbon Dioxide 31 H (22-30) mmol/L BUN 79 H (9-20) mg/dL Creatinine 1.78 H (0.66-1.25) mg/dL Glucose 101 H (74-99) mg/dL POC Glucose (mg/dL) 148 H (75-99) mg/dL Calcium 8.3 L (8.4-10.2) mg/dL Magnesium 2.4 H (1.6-2.3) mg/dL Assessment and Plan Plan: Assessment: 1. Acute kidney injury mostly prerenal secondary to cardiorenal syndrome. Renal function stable. Creatinine 1.78 today. 2. Chronic kidney disease stage III secondary to nephrosclerosis. 3. Acute on chronic systolic CHF with ejection fraction of 20-25%. 4. V. tach status post amiodarone drip. Cardiology following. 5. Intracardiac thrombus maintained on anticoagulation. Plan: Maintain Lasix 40 mg orally once daily. Avoid nephrotoxins. Low-salt diet. Continue to monitor renal function and urine output. Add midodrine 5 mg TID.
[2020-01-18 16:56] LABS: Glucose,Whole Blood 107 mg/dL (75-99)
[2020-01-18] MEDS: MIDODRINE 5 MG TAB PO SCH (18:27)
[2020-01-18 20:57] LABS: Glucose,Whole Blood 146 mg/dL (75-99)
--- NOTE | 2020-01-19 00:36 | XR ---
EXAMINATION TYPE: XR chest 1V portable DATE OF EXAM: 01/19/2020 COMPARISON: 01/16/2020 HISTORY: Pneumonia. Short of breath TECHNIQUE: FINDINGS: Heart is enlarged. There is mild pulmonary congestion. There is some airspace infiltrate le ft lower lobe. There is left axillary pacemaker. There are chest leads. IMPRESSION: There is some left lower lobe pneumonia that is the same or slightly worse than last exam . Mild heart failure is possible. Pulmonary congestion slightly increased compared to old exam.
[2020-01-19 06:25] LABS: Glucose,Whole Blood 114 mg/dL (75-99)
[2020-01-19] MEDS: INSULIN ASPART (NovoLOG) 100 UNIT/ML VIAL SQ SCH ×4 (06:34→20:19)
[2020-01-19] MEDS: carvediloL 12.5 MG TAB PO SCH ×2 (06:34→17:58)
[2020-01-19] MEDS: MIDODRINE 5 MG TAB PO SCH ×3 (06:34→17:58)
[2020-01-19 06:52] LABS: Magnesium 2.2 mg/dL (1.6-2.3); Potassium 5.3 mmol/L (3.5-5.1); Prothrombin Time 25.3 sec (9.0-12.0)
[2020-01-19] MEDS: TIOTROPIUM 18 MCG/PUFF INHALER INHALATION SCH (09:21)
[2020-01-19] MEDS: ALBUTEROL HFA INHALER INHALATION SCH ×4 (09:21→19:46)
[2020-01-19] MEDS: SYMBICORT 160-4.5 MCG INHALER INHALATION SCH ×2 (09:21→19:46)
[2020-01-19] MEDS: FAMOTIDINE 20 MG TAB PO SCH (10:04)
[2020-01-19] MEDS: OXYBUTYNIN XL 5 MG TAB.ER.24 PO SCH (10:04)
[2020-01-19] MEDS: ASPIRIN 81 MG PO SCH (10:04)
[2020-01-19 10:11] LABS: Basophils # (A) 0.1 k/uL (0-0.2); Basophils % (A) 1 %; Eosinophils # (A) 0.1 k/uL (0-0.7); Eosinophils % (A) 0 %; HGB 17.2 gm/dL (13.0-17.5); Hypochromasia Marked; Lymphocytes # (A) 0.7 k/uL (1.0-4.8); Lymphocytes % (A) 5 %; MCHC 30.1 g/dL (31.0-37.0); MCV 99.7 fL (80.0-100.0); Macrocytosis Slight; Mean Platelet Volume 9.3; Monocytes # (A) 1.3 k/uL (0-1.0); Monocytes % (A) 10 %; Neutrophils # (A) 11.2 k/uL (1.3-7.7); Neutrophils % (A) 82 %; Platelet Count 123 k/uL (150-450); RBC 5.75 m/uL (4.30-5.90); RDW 14.9 % (11.5-15.5); WBC 13.6 k/uL (3.8-10.6)
[2020-01-19 10:17] LABS: HCT 57.3 % (39.0-53.0)
--- NOTE | 2020-01-19 11:07 | P.PN ---
Subjective Patient is seen in follow-up for acute kidney injury on chronic kidney disease. Renal function stable. Good urine output. Oral intake fair. No chest pain or shortness of breath. Blood pressure on the lower side. Feels weak. Quite lethargic. Vital signs are stable. General: The patient appeared well nourished and normally developed. HEENT: Head exam is unremarkable. Neck is without jugular venous distension. LUNGS: Lungs are clear to auscultation and percussion. Breath sounds decreased. HEART: Rate and Rhythm are regular. ABDOMEN: Soft, nontender. EXTREMITITES: 1+ edema. Objective - Vital Signs Vital signs: Vital Signs Temp 97.4 F L 01/19/20 04:00 Pulse 69 01/19/20 04:00 Resp 22 01/19/20 04:00 BP 98/0 01/19/20 04:00 Pulse Ox 100 01/19/20 04:00 Intake & Output 01/18/20 01/19/20 01/19/20 18:59 06:59 18:59 Intake Total 240 240 Output Total 300 Balance 240 -60 Weight 148.5 kg Intake: Oral 240 240 Output: Urine 300 Other: Voiding Method Urinal Urinal # Voids 0 1 # Bowel Movements 0 - Labs CBC & Chem 7: 01/19/20 06:02 01/19/20 06:02 Labs: Abnormal Lab Results - Last 24 Hours (Table) 01/18/20 01/18/20 01/18/20 Range/Units 12:01 12:19 16:47 WBC (3.8-10.6) k/uL Hct (39.0-53.0) % MCHC (31.0-37.0) g/dL Plt Count (150-450) k/uL Neutrophils # (1.3-7.7) k/uL Lymphocytes # (1.0-4.8) k/uL Monocytes # (0-1.0) k/uL PT (9.0-12.0) sec INR (<1.2) Sodium 132 L (137-145) mmol/L Potassium (3.5-5.1) mmol/L Chloride 90 L (98-107) mmol/L Carbon Dioxide 31 H (22-30) mmol/L BUN 79 H (9-20) mg/dL Creatinine 1.78 H (0.66-1.25) mg/dL Glucose 101 H (74-99) mg/dL POC Glucose (mg/dL) 148 H 107 H (75-99) mg/dL Calcium 8.3 L (8.4-10.2) mg/dL Magnesium 2.4 H (1.6-2.3) mg/dL 01/18/20 01/19/20 01/19/20 Range/Units 20:56 06:02 06:02 WBC (3.8-10.6) k/uL Hct (39.0-53.0) % MCHC (31.0-37.0) g/dL Plt Count (150-450) k/uL Neutrophils # (1.3-7.7) k/uL Lymphocytes # (1.0-4.8) k/uL Monocytes # (0-1.0) k/uL PT 25.3 H (9.0-12.0) sec INR 2.6 H (<1.2) Sodium 131 L (137-145) mmol/L Potassium 5.3 H (3.5-5.1) mmol/L Chloride 93 L (98-107) mmol/L Carbon Dioxide (22-30) mmol/L BUN 76 H (9-20) mg/dL Creatinine 1.74 H (0.66-1.25) mg/dL Glucose 113 H (74-99) mg/dL POC Glucose (mg/dL) 146 H (75-99) mg/dL Calcium (8.4-10.2) mg/dL Magnesium (1.6-2.3) mg/dL 01/19/20 01/19/20 Range/Units 06:02 06:23 WBC 13.6 H (3.8-10.6) k/uL Hct 57.3 H* (39.0-53.0) % MCHC 30.1 L (31.0-37.0) g/dL Plt Count 123 L (150-450) k/uL Neutrophils # 11.2 H (1.3-7.7) k/uL Lymphocytes # 0.7 L (1.0-4.8) k/uL Monocytes # 1.3 H (0-1.0) k/uL PT (9.0-12.0) sec INR (<1.2) Sodium (137-145) mmol/L Potassium (3.5-5.1) mmol/L Chloride (98-107) mmol/L Carbon Dioxide (22-30) mmol/L BUN (9-20) mg/dL Creatinine (0.66-1.25) mg/dL Glucose (74-99) mg/dL POC Glucose (mg/dL) 114 H (75-99) mg/dL Calcium (8.4-10.2) mg/dL Magnesium (1.6-2.3) mg/dL Assessment and Plan Plan: Assessment: 1. Acute kidney injury mostly prerenal secondary to cardiorenal syndrome. Renal function stable. Creatinine 1.74 today. 2. Chronic kidney disease stage III secondary to nephrosclerosis. 3. Acute on chronic systolic CHF with ejection fraction of 20-25%. 4. V. tach status post amiodarone drip. Cardiology following. 5. Intracardiac thrombus maintained on anticoagulation. 6. Volume overload. 7. Hypervolemic hyponatremia. Plan: I will change Lasix to 40 mg IV once daily. Avoid nephrotoxins. Low-salt diet. Continue to monitor renal function and urine output. Increase midodrine to 10 mg 3 times daily.
--- NOTE | 2020-01-19 11:14 | P.PN ---
Subjective Progress Note Date: 01/19/20 CHIEF COMPLAINT: Shortness of breath HISTORY OF PRESENT ILLNESS: Patient examined this morning at the bedside. He denies chest pain. Denies shortness of breath. He reports increased swelling to his lower extremities today. INR 2.6. Creatinine 1.74. Per EMR, patient with positive fluid balance of 240 mL over the last 24 hours. Weight is up approximately 7 kg from yesterday. PHYSICAL EXAM: VITAL SIGNS: Reviewed. GENERAL: Well-developed in no acute distress. HEENT: Head is normocephalic. Pupils are equal, round. Sclerae anicteric. Mucous membranes of the mouth are moist. Neck supple. No JVD or thyromegaly LUNGS: Respirations even and unlabored. Lungs sounds diminished bilaterally. HEART: Regular rate and rhythm. S1 and S2 heard. ASSESSMENT: 1. Left ventricle thrombus 2. Acute exacerbation of systolic congestive heart failure, EF 20-25% 3. Cardiomyopathy with permanent pacemaker/AICD 4. History of COPD with home oxygen use, 2L PLAN: -Monitor kidney function -Nephrology following -Lasix dosing per nephrology. Switched to IV dosing today per Dr. Torrez -Daily weights and accurate I&O -Continue current dose of amiodarone -Resume Coumadin tonight at 2.5 mg Nurse practitioner note has been reviewed by physician. Signing provider agrees with the documented findings, assessment, and plan of care. Objective - Vital Signs Vital signs: Vital Signs Temp 97.4 F L 01/19/20 04:00 Pulse 69 01/19/20 04:00 Resp 22 01/19/20 04:00 BP 98/0 01/19/20 04:00 Pulse Ox 100 01/19/20 04:00 Intake & Output 01/18/20 01/19/20 01/19/20 18:59 06:59 18:59 Intake Total 240 240 Output Total 300 Balance 240 -60 Weight 148.5 kg Intake: Oral 240 240 Output: Urine 300 Other: Voiding Method Urinal Urinal # Voids 0 1 # Bowel Movements 0 - Labs CBC & Chem 7: 01/19/20 06:02 01/19/20 06:02 Labs: Abnormal Lab Results - Last 24 Hours (Table) 01/18/20 01/18/20 01/18/20 Range/Units 12:01 12:19 16:47 WBC (3.8-10.6) k/uL Hct (39.0-53.0) % MCHC (31.0-37.0) g/dL Plt Count (150-450) k/uL Neutrophils # (1.3-7.7) k/uL Lymphocytes # (1.0-4.8) k/uL Monocytes # (0-1.0) k/uL PT (9.0-12.0) sec INR (<1.2) Sodium 132 L (137-145) mmol/L Potassium (3.5-5.1) mmol/L Chloride 90 L (98-107) mmol/L Carbon Dioxide 31 H (22-30) mmol/L BUN 79 H (9-20) mg/dL Creatinine 1.78 H (0.66-1.25) mg/dL Glucose 101 H (74-99) mg/dL POC Glucose (mg/dL) 148 H 107 H (75-99) mg/dL Calcium 8.3 L (8.4-10.2) mg/dL Magnesium 2.4 H (1.6-2.3) mg/dL 01/18/20 01/19/20 01/19/20 Range/Units 20:56 06:02 06:02 WBC (3.8-10.6) k/uL Hct (39.0-53.0) % MCHC (31.0-37.0) g/dL Plt Count (150-450) k/uL Neutrophils # (1.3-7.7) k/uL Lymphocytes # (1.0-4.8) k/uL Monocytes # (0-1.0) k/uL PT 25.3 H (9.0-12.0) sec INR 2.6 H (<1.2) Sodium 131 L (137-145) mmol/L Potassium 5.3 H (3.5-5.1) mmol/L Chloride 93 L (98-107) mmol/L Carbon Dioxide (22-30) mmol/L BUN 76 H (9-20) mg/dL Creatinine 1.74 H (0.66-1.25) mg/dL Glucose 113 H (74-99) mg/dL POC Glucose (mg/dL) 146 H (75-99) mg/dL Calcium (8.4-10.2) mg/dL Magnesium (1.6-2.3) mg/dL 01/19/20 01/19/20 Range/Units 06:02 06:23 WBC 13.6 H (3.8-10.6) k/uL Hct 57.3 H* (39.0-53.0) % MCHC 30.1 L (31.0-37.0) g/dL Plt Count 123 L (150-450) k/uL Neutrophils # 11.2 H (1.3-7.7) k/uL Lymphocytes # 0.7 L (1.0-4.8) k/uL Monocytes # 1.3 H (0-1.0) k/uL PT (9.0-12.0) sec INR (<1.2) Sodium (137-145) mmol/L Potassium (3.5-5.1) mmol/L Chloride (98-107) mmol/L Carbon Dioxide (22-30) mmol/L BUN (9-20) mg/dL Creatinine (0.66-1.25) mg/dL Glucose (74-99) mg/dL POC Glucose (mg/dL) 114 H (75-99) mg/dL Calcium (8.4-10.2) mg/dL Magnesium (1.6-2.3) mg/dL
[2020-01-19 11:59] LABS: Glucose,Whole Blood 124 mg/dL (75-99)
[2020-01-19 14:22] LABS: Amorphous Sediment,Urine Rare /hpf; Appearance,Urine Clear (Clear); Bilirubin,Urine Negative (Negative); Blood,Urine Negative (Negative); Budding Yeast,Urine Rare /hpf; Color,Urine Yellow; Glucose,Urine (UA) Negative (Negative); Granular Casts,Urine 1 /lpf (0); Hyaline Casts,Urine 11 /lpf (0-2); Ketones,Urine Negative (Negative); Leukocyte Esterase,Urine Negative (Negative); Mucus,Urine Rare /hpf; Nitrite,Urine Negative (Negative); PH, Urine 5.5 (5.0-8.0); Protein,Urine 1+ (Negative); RBC,Urine 1 /hpf (0-5); Specific Gravity,Urine 1.016 (1.001-1.035); WBC,Urine 4 /hpf (0-5)
[2020-01-19] MEDS: FUROSEMIDE 10 MG/ML 4 ML VIAL IV SCH (14:22)
[2020-01-19] MEDS: AMIODARONE 200 MG TAB PO SCH ×2 (14:24→20:19)
[2020-01-19] MEDS: FUROSEMIDE 40 MG TAB PO SCH (14:27)
--- NOTE | 2020-01-19 14:53 | P.PN ---
Subjective Progress Note Date: 01/19/20 Principal diagnosis: 61-year-old male was admitted for a heart failure exacerbation. Patient the had an ejection fraction of around 30 to the liver center. Echocardiogram done well here showed EF of around 20-25% patient also has another cardiac intracardiac thrombus patient was started on IV heparin. Medical records which were reviewed by pulmonology from [facility] showed urine cultures positive for enterococcus and E. coli which are both sensitive to Augmentin patient was started back on Augmentin levofloxacin will be discontinued. We'll cut down the Lasix dose of 40 mg every 12 hourly patient had significant urine output and patient pedal edema significant improved. Patient doesn't have any fever chills at this time. Patient's shortness of breath significantly improved. 01/12/2020 Patient will be switched to oral Lasix today patient is fairly euvolemic at this time. Cardiology will let further look into his medical records and cardiac history depending on that will decide on oral anticoagulation. 01/13/2020 Patient had an episode of sustained V. tach the patient was a symptomatic at that time patient was started on amiodarone. Patient was also started on Coumadin by cardiology patient can use to be on IV heparin at this time. 01/14/2020 Patient's INR is around 1.6. Patient will be given of 5 mg of Coumadin today patient is also on IV heparin. Patient the AICD is being interrogated at this time patient kidney function remains fairly stable but elevated creatinine. Patient is clinically euvolemic at this time patient was switched to oral amiodarone. 01/15/2020 Patient kidney function has worsened a bit because of which nephrology consult down the dose of Lasix to 40 mg daily. Will to recheck the kidney function tomorrow patient INR is therapeutic IV heparin was discontinued patient is feeling okay overall. 01/16/2020 Patient's creatinine continued to go up and patient the appears to have volume overload today. Patient is only on 40 mg of Lasix will. Nephrology is managing the diuretics. Patient INR is around 2.2 today. Expected to go up even more because of which are Coumadin is being discontinued at this time. Patient is saturating at 94% on 3 L which is worse than his usual he was saturating 100% on 2 L or less. I'll obtain a chest x-ray looking for pulmonary edema. Constitutional: Denied any fatigue denied any fever. Cardio vascular: denied any chest pain, palpitations Gastrointestinal denied any nausea vomiting Pulmonary: Denied any shortness of breath cough Neurologic denied any new focal deficits All inpatient medications were reviewed and appropriate changes in these medications as dictated in the interval history and assessment and plan. 01/17/2020 Patient is seen and evaluated and follow-up in kidney functions is slightly improved and creatinine is currently 1.89. INR today is 3.7 and Coumadin has been on hold. Chest x-ray continues to show left basilar infiltrates and/or at electasis with cardiomegaly. Multiple medical consultations including nephrology and cardiology and pulmonary following. Adjustments have been made to his amiodarone. Patient continues to be quite weak and has been evaluated by PT/OT recommending subacute rehab once stabilized and discharged. Case management and social work following working on placement at an ECF. She is maintained on breathing inhalational treatments along with oral Augmentin and will continue at this time. Patient is currently on 40 mg of oral Lasix daily and will continue at this time. Patient currently denies any chest pain or palpitations. Patient continues to have some shortness of breath. Patient is afebrile. No reports of nausea or vomiting and patient is tolerating diet. 01/18/2020 Patient is seen and evaluated and follow-up currently sitting up in the chair continues to be very lethargic and weak. Multiple medical consultations following including pulmonary, cardiology, nephrology. Patient to continue on current dose of oral Lasix at 40 mg daily. Creatinine slightly improved at 1.78 today with a BUNs of 79. Magnesium is 2.4. INR today is 3.1 and will continue to hold Coumadin and recheck labs in the morning. Case management and social work following as patient will be going to ECF once stabilized and discharged. Patient to continue with breathing treatments at this time. Instructed the patient to increase activity as tolerated and needs much encouragement. Currently patient denies any chest pain, worsening shortness of breath, or palpitations. Patient is afebrile. No reports of nausea or vomiting and patient is tolerating diet. 01/19/2020 Patient is seen in follow-up today currently sitting up in the chair continues to be extremely weak and lethargic. Patient is having bilateral lower extremity pain and generalized discomfort. Multiple medical consultations following. Patient was transitioned to IV Lasix and being closely monitored by nephrology. Current creatinine is 1.74. Patient continues to be quite edematous. INR is down to 2.6 today and pharmacy to dose Coumadin. Patient has completed the course of oral antibiotics in the form of Augmentin. Patient currently denies any chest pain or palpitations. Heart rate has been in the 60s and amiodarone was held again today. Cardiology is following. Patient is afebrile. No reports of nausea or vomiting and patient is tolerating diet. Patient continues to have shortness of breath although has not worsened and is maintained on 2 L of oxygen via nasal cannula. Patient is also receiving breathing treatments and will continue at this time Objective - Vital Signs Vital signs: Vital Signs Temp 97.5 F L 01/19/20 08:00 Pulse 60 01/19/20 08:00 Resp 22 01/19/20 08:00 BP 107/69 01/19/20 08:00 Pulse Ox 96 01/19/20 08:00 Intake & Output 01/18/20 01/19/20 01/19/20 18:59 06:59 18:59 Intake Total 240 240 Output Total 300 Balance 240 -60 Weight 148.5 kg Intake: Oral 240 240 Output: Urine 300 Other: Voiding Method Urinal Urinal Urinal # Voids 0 1 # Bowel Movements 0 - Exam GENERAL: The patient is alert and oriented x3, not in any acute distress. Lethargic. Well developed, well nourished. HEENT: Pupils are round and equally reacting to light. EOMI. No scleral icterus. No conjunctival pallor. Normocephalic, atraumatic. No pharyngeal erythema. No thyromegaly. CARDIOVASCULAR: S1 and S2 present. No murmurs, rubs, or gallops. Improved JVD PULMONARY: Diminished breath sounds at the bases with a few scattered rhonchi noted, no wheezing or crackles. ABDOMEN: Soft, nontender, nondistended, normoactive bowel sounds. No palpable organomegaly. MUSCULOSKELETAL: No joint swelling or deformity. EXTREMITIES: No cyanosis, clubbing, pedal edema noted NEUROLOGICAL: Gross neurological examination did not reveal any focal deficits. Diffusely weak SKIN: No rashes. - Labs CBC & Chem 7: 01/19/20 06:02 01/19/20 06:02 Labs: Abnormal Lab Results - Last 24 Hours (Table) 01/18/20 01/18/2001/18/20 Range/Units 16:47 20:56 06:02 WBC (3.8-10.6) k/uL Hct (39.0-53.0) % MCHC (31.0-37.0) g/dL Plt Count (150-450) k/uL Neutrophils # (1.3-7.7) k/uL Lymphocytes # (1.0-4.8) k/uL Monocytes # (0-1.0) k/uL PT 25.3 H (9.0-12.0) sec INR 2.6 H (<1.2) Sodium (137-145) mmol/L Potassium (3.5-5.1) mmol/L Chloride (98-107) mmol/L BUN (9-20) mg/dL Creatinine (0.66-1.25) mg/dL Glucose (74-99) mg/dL POC Glucose (mg/dL) 107 H 146 H (75-99) mg/dL Urine Protein (Negative) Amorphous Sediment (None) /hpf Hyaline Casts (0-2) /lpf Urine Mucus (None) /hpf Urine Yeast (Budding) (None) /hpf 01/19/20 01/19/20 01/19/20 Range/Units 06:02 06:02 06:23 WBC 13.6 H (3.8-10.6) k/uL Hct 57.3 H* (39.0-53.0) % MCHC 30.1 L (31.0-37.0) g/dL Plt Count 123 L (150-450) k/uL Neutrophils # 11.2 H (1.3-7.7) k/uL Lymphocytes # 0.7 L (1.0-4.8) k/uL Monocytes # 1.3 H (0-1.0) k/uL PT (9.0-12.0) sec INR (<1.2) Sodium 131 L (137-145) mmol/L Potassium 5.3 H (3.5-5.1) mmol/L Chloride 93 L (98-107) mmol/L BUN 76 H (9-20) mg/dL Creatinine 1.74 H (0.66-1.25) mg/dL Glucose 113 H (74-99) mg/dL POC Glucose (mg/dL) 114 H (75-99) mg/dL Urine Protein (Negative) Amorphous Sediment (None) /hpf Hyaline Casts (0-2) /lpf Urine Mucus (None) /hpf Urine Yeast (Budding) (None) /hpf 01/19/20 01/19/20 Range/Units 11:59 12:40 WBC (3.8-10.6) k/uL Hct (39.0-53.0) % MCHC (31.0-37.0) g/dL Plt Count (150-450) k/uL Neutrophils # (1.3-7.7) k/uL Lymphocytes # (1.0-4.8) k/uL Monocytes # (0-1.0) k/uL PT (9.0-12.0) sec INR (<1.2) Sodium (137-145) mmol/L Potassium (3.5-5.1) mmol/L Chloride (98-107) mmol/L BUN (9-20) mg/dL Creatinine (0.66-1.25) mg/dL Glucose (74-99) mg/dL POC Glucose (mg/dL) 124 H (75-99) mg/dL Urine Protein 1+ H (Negative) Amorphous Sediment Rare H (None) /hpf Hyaline Casts 11 H (0-2) /lpf Urine Mucus Rare H (None) /hpf Urine Yeast (Budding) Rare H (None) /hpf Assessment and Plan Assessment: -Shortness of breath and acute hypoxic respiratory failure: Secondary to congestive heart failure exacerbation improved now lactic acidosis improved serum creatinine and serum sodium improved. Patient does have an intracardiac thrombus for which patient is on Coumadin, INR today is 2.6 and pharmacy to dose -Congestive heart failure chronic systolic dysfunction EF of around 20% with acute exacerbation -Intracardiac thrombus -episode of nonsustained VT , AICD was interrogated which did not show any malfunctioning, patient has been transitioned oral amiodarone and being decreased to 200 mg twice daily. Cardiology following -Acute renal failure secondary to prerenal azotemia from congestive heart failure, nephrology following, creatinine slightly improved at 1.74 today, patient is maintained on 40 mg of IV Lasix daily -Hypervolemic hyponatremia, patient is presently but hypovolemic -Lactic acidosis secondary to decreased organ perfusion improved at this time -Pneumonia was ruled out -Recent UTI with enterococcus and E. coli -Hypertension -Continued nicotine use: Counseling was provided -COPD without any acute exacerbation -DVT prophylaxis -GI prophylaxis: Pepcid Plan: Continue current medications, management, and symptomatic treatment. To continue with breathing inhalational treatments and IV Lasix. Multiple medical consultations following. Continue to encourage increase in activity. Case management and social work also following and working on ECF placement upon discharge. Will repeat a.m. labs. Further recommendations to follow.
[2020-01-19 15:04] LABS: INR 2.6 (<1.2)
[2020-01-19 16:52] LABS: Glucose,Whole Blood 116 mg/dL (75-99)
[2020-01-19] MEDS ORDERED: WARFARIN 2.5 MG TAB PO SCH (18:00)
[2020-01-19] MEDS ORDERED: WARFARIN 3 MG TAB PO SCH (18:00)
[2020-01-19 19:57] LABS: Glucose,Whole Blood 159 mg/dL (75-99)
[2020-01-20 06:20] LABS: Glucose,Whole Blood 109 mg/dL (75-99)
[2020-01-20] MEDS: INSULIN ASPART (NovoLOG) 100 UNIT/ML VIAL SQ SCH ×2 (06:40→12:37)
[2020-01-20] MEDS: carvediloL 12.5 MG TAB PO SCH (06:57)
[2020-01-20] MEDS: MIDODRINE 5 MG TAB PO SCH ×2 (06:57→12:55)
[2020-01-20 07:37] LABS: Basophils % (A) 0 %; Eosinophils # (A) 0.1 k/uL (0-0.7); Eosinophils % (A) 1 %; HCT 53.1 % (39.0-53.0); HGB 16.6 gm/dL (13.0-17.5); Hypochromasia Moderate; Lymphocytes % (A) 9 %; MCH 30.2 pg (25.0-35.0); MCHC 31.3 g/dL (31.0-37.0); MCV 96.5 fL (80.0-100.0); Mean Platelet Volume 9.1; Monocytes % (A) 19 %; Neutrophils # (A) 7.7 k/uL (1.3-7.7); Neutrophils % (A) 70 %; Platelet Count 117 k/uL (150-450); RDW 14.9 % (11.5-15.5); WBC 10.9 k/uL (3.8-10.6)
[2020-01-20 08:07] LABS: INR 2.6 (<1.2)
[2020-01-20 08:34] LABS: Calcium 8.6 mg/dL (8.4-10.2); Magnesium 2.1 mg/dL (1.6-2.3)
[2020-01-20 08:50] LABS: Potassium 5.2 mmol/L (3.5-5.1)
[2020-01-20] MEDS: SYMBICORT 160-4.5 MCG INHALER INHALATION SCH (08:52)
[2020-01-20] MEDS: ALBUTEROL HFA INHALER INHALATION SCH ×3 (08:52→16:26)
[2020-01-20] MEDS: TIOTROPIUM 18 MCG/PUFF INHALER INHALATION SCH (08:52)
[2020-01-20] MEDS: FAMOTIDINE 20 MG TAB PO SCH (10:23)
[2020-01-20] MEDS: AMIODARONE 200 MG TAB PO SCH (10:23)
[2020-01-20] MEDS: ASPIRIN 81 MG PO SCH (10:23)
[2020-01-20] MEDS: OXYBUTYNIN XL 5 MG TAB.ER.24 PO SCH (10:23)
[2020-01-20] MEDS: FUROSEMIDE 10 MG/ML 4 ML VIAL IV SCH (10:23)
--- NOTE | 2020-01-20 11:23 | P.PN ---
Subjective Patient is seen in follow-up for acute kidney injury on chronic kidney disease. Renal function better. Good urine output. Oral intake fair. No chest pain or shortness of breath. Blood pressure improved with midodrine. Remains tired. Vital signs are stable. General: The patient appeared well nourished and normally developed. HEENT: Head exam is unremarkable. Neck is without jugular venous distension. LUNGS: Lungs are clear to auscultation and percussion. Breath sounds decreased. HEART: Rate and Rhythm are regular. ABDOMEN: Soft, nontender. EXTREMITITES: 1+ edema. Objective - Vital Signs Vital signs: Vital Signs Temp 97.8 F 01/20/20 08:45 Pulse 62 01/20/20 08:45 Resp 20 01/20/20 08:45 BP 110/55 01/20/20 08:45 Pulse Ox 94 L 01/20/20 08:45 Intake & Output 01/19/20 01/20/20 01/20/20 18:59 06:59 18:59 Intake Total 360 660 Output Total 300 300 500 Balance 60 -300 160 Weight 143 kg Intake: Oral 360 660 Output: Urine 300 300 500 Other: Voiding Method Urinal Diaper # Voids 2 1 1 - Labs CBC & Chem 7: 01/20/20 07:11 01/20/20 07:11 Labs: Abnormal Lab Results - Last 24 Hours (Table) 01/19/20 01/19/20 01/19/20 Range/Units 06:02 11:59 12:40 WBC (3.8-10.6) k/uL Hct (39.0-53.0) % Plt Count (150-450) k/uL Monocytes # (0-1.0) k/uL PT (9.0-12.0) sec INR 2.6 H (<1.2) Sodium (137-145) mmol/L Potassium (3.5-5.1) mmol/L Chloride (98-107) mmol/L BUN (9-20) mg/dL Creatinine (0.66-1.25) mg/dL POC Glucose (mg/dL) 124 H (75-99) mg/dL Urine Protein 1+ H (Negative) Amorphous Sediment Rare H (None) /hpf Hyaline Casts 11 H (0-2) /lpf Urine Mucus Rare H (None) /hpf Urine Yeast (Budding) Rare H (None) /hpf 01/19/20 01/19/20 01/20/20 Range/Units 16:51 19:55 06:18 WBC (3.8-10.6) k/uL Hct (39.0-53.0) % Plt Count (150-450) k/uL Monocytes # (0-1.0) k/uL PT (9.0-12.0) sec INR (<1.2) Sodium (137-145) mmol/L Potassium (3.5-5.1) mmol/L Chloride (98-107) mmol/L BUN (9-20) mg/dL Creatinine (0.66-1.25) mg/dL POC Glucose (mg/dL) 116 H 159 H 109 H (75-99) mg/dL Urine Protein (Negative) Amorphous Sediment (None) /hpf Hyaline Casts (0-2) /lpf Urine Mucus (None) /hpf Urine Yeast (Budding) (None) /hpf 01/20/20 01/20/20 01/20/20 Range/Units 07:11 07:11 07:11 WBC 10.9 H (3.8-10.6) k/uL Hct 53.1 H (39.0-53.0) % Plt Count 117 L (150-450) k/uL Monocytes # 2.0 H (0-1.0) k/uL PT 25.0 H (9.0-12.0) sec INR 2.6 H (<1.2) Sodium 133 L (137-145) mmol/L Potassium 5.2 H (3.5-5.1) mmol/L Chloride 96 L (98-107) mmol/L BUN 70 H (9-20) mg/dL Creatinine 1.54 H (0.66-1.25) mg/dL POC Glucose (mg/dL) (75-99) mg/dL Urine Protein (Negative) Amorphous Sediment (None) /hpf Hyaline Casts (0-2) /lpf Urine Mucus (None) /hpf Urine Yeast (Budding) (None) /hpf Assessment and Plan Plan: Assessment: 1. Acute kidney injury mostly prerenal secondary to cardiorenal syndrome. Renal function stable. Creatinine 1.54 today. 2. Chronic kidney disease stage III secondary to nephrosclerosis. 3. Acute on chronic systolic CHF with ejection fraction of 20-25%. 4. V. tach status post amiodarone drip. Cardiology following. 5. Intracardiac thrombus maintained on anticoagulation. 6. Volume overload. 7. Hypervolemic hyponatremia. Better. Plan: Continue Lasix 40 mg IV once daily. Avoid nephrotoxins. Low-salt diet. Continue to monitor renal function and urine output. Maintain midodrine.
[2020-01-20 11:48] LABS: Glucose,Whole Blood 130 mg/dL (75-99)
--- NOTE | 2020-01-20 13:02 | P.PN ---
Subjective Progress Note Date: 01/20/20 CHIEF COMPLAINT: Shortness of breath HISTORY OF PRESENT ILLNESS: Patient examined this morning at the bedside. He denies chest pain. Denies shortness of breath. He continues to have lower extremity edema but states it is improving. He is down 5 kg. Fluid balance over the last 24 hours is -240cc. Creatinine 1.54. PHYSICAL EXAM: VITAL SIGNS: Reviewed. GENERAL: Well-developed in no acute distress. HEENT: Head is normocephalic. Pupils are equal, round. Sclerae anicteric. Mucous membranes of the mouth are moist. Neck supple. No JVD or thyromegaly LUNGS: Respirations even and unlabored. Lungs sounds diminished bilaterally. HEART: Regular rate and rhythm. S1 and S2 heard. ASSESSMENT: 1. Left ventricle thrombus 2. Acute exacerbation of systolic congestive heart failure, EF 20-25% 3. Cardiomyopathy with permanent pacemaker/AICD 4. History of COPD with home oxygen use, 2L PLAN: -Monitor kidney function -Nephrology following -Lasix dosing per nephrology -Daily weights and accurate I&O -Continue current dose of amiodarone -Continue Coumadin. Recheck INR in AM Nurse practitioner note has been reviewed by physician. Signing provider agrees with the documented findings, assessment, and plan of care. Objective - Vital Signs Vital signs: Vital Signs Temp 97.8 F 01/20/20 08:45 Pulse 62 01/20/20 08:45 Resp 20 01/20/20 08:45 BP 110/55 01/20/20 08:45 Pulse Ox 94 L 01/20/20 08:45 Intake & Output 01/19/20 01/20/20 01/20/20 18:59 06:59 18:59 Intake Total 360 660 Output Total 300 300 500 Balance 60 -300 160 Weight 143 kg Intake: Oral 360 660 Output: Urine 300 300 500 Other: Voiding Method Urinal Diaper # Voids 2 1 1 - Labs CBC & Chem 7: 01/20/20 07:11 01/20/20 07:11 Labs: Abnormal Lab Results - Last 24 Hours (Table) 01/19/20 01/19/20 01/19/20 Range/Units 06:02 11:59 12:40 WBC (3.8-10.6) k/uL Hct (39.0-53.0) % Plt Count (150-450) k/uL Monocytes # (0-1.0) k/uL PT (9.0-12.0) sec INR 2.6 H (<1.2) Sodium (137-145) mmol/L Potassium (3.5-5.1) mmol/L Chloride (98-107) mmol/L BUN (9-20) mg/dL Creatinine (0.66-1.25) mg/dL POC Glucose (mg/dL) 124 H (75-99) mg/dL Urine Protein 1+ H (Negative) Amorphous Sediment Rare H (None) /hpf Hyaline Casts 11 H (0-2) /lpf Urine Mucus Rare H (None) /hpf Urine Yeast (Budding) Rare H (None) /hpf 01/19/20 01/19/20 01/20/20 Range/Units 16:51 19:55 06:18 WBC (3.8-10.6) k/uL Hct (39.0-53.0) % Plt Count (150-450) k/uL Monocytes # (0-1.0) k/uL PT (9.0-12.0) sec INR (<1.2) Sodium (137-145) mmol/L Potassium (3.5-5.1) mmol/L Chloride (98-107) mmol/L BUN (9-20) mg/dL Creatinine (0.66-1.25) mg/dL POC Glucose (mg/dL) 116 H 159 H 109 H (75-99) mg/dL Urine Protein (Negative) Amorphous Sediment (None) /hpf Hyaline Casts (0-2) /lpf Urine Mucus (None) /hpf Urine Yeast (Budding) (None) /hpf 01/20/20 01/20/20 01/20/20 Range/Units 07:11 07:11 07:11 WBC 10.9 H (3.8-10.6) k/uL Hct 53.1 H (39.0-53.0) % Plt Count 117 L (150-450) k/uL Monocytes # 2.0 H (0-1.0) k/uL PT 25.0 H (9.0-12.0) sec INR 2.6 H (<1.2) Sodium 133 L (137-145) mmol/L Potassium 5.2 H (3.5-5.1) mmol/L Chloride 96 L (98-107) mmol/L BUN 70 H (9-20) mg/dL Creatinine 1.54 H (0.66-1.25) mg/dL POC Glucose (mg/dL) (75-99) mg/dL Urine Protein (Negative) Amorphous Sediment (None) /hpf Hyaline Casts (0-2) /lpf Urine Mucus (None) /hpf Urine Yeast (Budding) (None) /hpf 01/20/20 Range/Units 11:47 WBC (3.8-10.6) k/uL Hct (39.0-53.0) % Plt Count (150-450) k/uL Monocytes # (0-1.0) k/uL PT (9.0-12.0) sec INR (<1.2) Sodium (137-145) mmol/L Potassium (3.5-5.1) mmol/L Chloride (98-107) mmol/L BUN (9-20) mg/dL Creatinine (0.66-1.25) mg/dL POC Glucose (mg/dL) 130 H (75-99) mg/dL Urine Protein (Negative) Amorphous Sediment (None) /hpf Hyaline Casts (0-2) /lpf Urine Mucus (None) /hpf Urine Yeast (Budding) (None) /hpf
[2020-01-20 14:23] VITALS: BP 128/60; PULSE 67; RESP 19; TEMP 98
--- NOTE | 2020-01-20 15:08 | P.PN ---
Subjective Progress Note Date: 01/20/20 Principal diagnosis: 61-year-old male was admitted for a heart failure exacerbation. Patient the had an ejection fraction of around 30 to the liver center. Echocardiogram done well here showed EF of around 20-25% patient also has another cardiac intracardiac thrombus patient was started on IV heparin. Medical records which were reviewed by pulmonology from [facility] showed urine cultures positive for enterococcus and E. coli which are both sensitive to Augmentin patient was started back on Augmentin levofloxacin will be discontinued. We'll cut down the Lasix dose of 40 mg every 12 hourly patient had significant urine output and patient pedal edema significant improved. Patient doesn't have any fever chills at this time. Patient's shortness of breath significantly improved. 01/12/2020 Patient will be switched to oral Lasix today patient is fairly euvolemic at this time. Cardiology will let further look into his medical records and cardiac history depending on that will decide on oral anticoagulation. 01/13/2020 Patient had an episode of sustained V. tach the patient was a symptomatic at that time patient was started on amiodarone. Patient was also started on Coumadin by cardiology patient can use to be on IV heparin at this time. 01/14/2020 Patient's INR is around 1.6. Patient will be given of 5 mg of Coumadin today patient is also on IV heparin. Patient the AICD is being interrogated at this time patient kidney function remains fairly stable but elevated creatinine. Patient is clinically euvolemic at this time patient was switched to oral amiodarone. 01/15/2020 Patient kidney function has worsened a bit because of which nephrology consult down the dose of Lasix to 40 mg daily. Will to recheck the kidney function tomorrow patient INR is therapeutic IV heparin was discontinued patient is feeling okay overall. 01/16/2020 Patient's creatinine continued to go up and patient the appears to have volume overload today. Patient is only on 40 mg of Lasix will. Nephrology is managing the diuretics. Patient INR is around 2.2 today. Expected to go up even more because of which are Coumadin is being discontinued at this time. Patient is saturating at 94% on 3 L which is worse than his usual he was saturating 100% on 2 L or less. I'll obtain a chest x-ray looking for pulmonary edema. Constitutional: Denied any fatigue denied any fever. Cardio vascular: denied any chest pain, palpitations Gastrointestinal denied any nausea vomiting Pulmonary: Denied any shortness of breath cough Neurologic denied any new focal deficits All inpatient medications were reviewed and appropriate changes in these medications as dictated in the interval history and assessment and plan. 01/17/2020 Patient is seen and evaluated and follow-up in kidney functions is slightly improved and creatinine is currently 1.89. INR today is 3.7 and Coumadin has been on hold. Chest x-ray continues to show left basilar infiltrates and/or at electasis with cardiomegaly. Multiple medical consultations including nephrology and cardiology and pulmonary following. Adjustments have been made to his amiodarone. Patient continues to be quite weak and has been evaluated by PT/OT recommending subacute rehab once stabilized and discharged. Case management and social work following working on placement at an ECF. She is maintained on breathing inhalational treatments along with oral Augmentin and will continue at this time. Patient is currently on 40 mg of oral Lasix daily and will continue at this time. Patient currently denies any chest pain or palpitations. Patient continues to have some shortness of breath. Patient is afebrile. No reports of nausea or vomiting and patient is tolerating diet. 01/18/2020 Patient is seen and evaluated and follow-up currently sitting up in the chair continues to be very lethargic and weak. Multiple medical consultations following including pulmonary, cardiology, nephrology. Patient to continue on current dose of oral Lasix at 40 mg daily. Creatinine slightly improved at 1.78 today with a BUNs of 79. Magnesium is 2.4. INR today is 3.1 and will continue to hold Coumadin and recheck labs in the morning. Case management and social work following as patient will be going to ECF once stabilized and discharged. Patient to continue with breathing treatments at this time. Instructed the patient to increase activity as tolerated and needs much encouragement. Currently patient denies any chest pain, worsening shortness of breath, or palpitations. Patient is afebrile. No reports of nausea or vomiting and patient is tolerating diet. 01/19/2020 Patient is seen in follow-up today currently sitting up in the chair continues to be extremely weak and lethargic. Patient is having bilateral lower extremity pain and generalized discomfort. Multiple medical consultations following. Patient was transitioned to IV Lasix and being closely monitored by nephrology. Current creatinine is 1.74. Patient continues to be quite edematous. INR is down to 2.6 today and pharmacy to dose Coumadin. Patient has completed the course of oral antibiotics in the form of Augmentin. Patient currently denies any chest pain or palpitations. Heart rate has been in the 60s and amiodarone was held again today. Cardiology is following. Patient is afebrile. No reports of nausea or vomiting and patient is tolerating diet. Patient continues to have shortness of breath although has not worsened and is maintained on 2 L of oxygen via nasal cannula. Patient is also receiving breathing treatments and will continue at this time 01/20/2020 Patient is seen and evaluated in follow-up today and continues to be extremely weak and lethargic. Patient states his shortness of breath has slightly improved and denies any chest pain at this time. Patient is maintained on IV Lasix 40 mg daily and will continue at this time. Patient is also maintained on 200 mg twice a day of amiodarone and will continue. Patient to continue with bronchodilators as well. instructed patient to increase activity as tolerated. Per nursing staff patient had a blister on top of bilateral lower extremities th at were wrapped as patient continues to have bilateral lower extremity edema. We'll continue with Miguelito wraps to bilateral lower extremities at this time. Patient instructed to elevate lower extremities while at rest. patient denies any nausea or vomiting and is tolerating diet. Patient is maintained on sliding scale and will continue at this time. current creatinine is 1.54, sodium is 133, potassium is 5.2, and INR today is 2.6 with pharmacy to dose Coumadin. white blood count trending down at 10.9 today and patient is afebrile. Objective - Vital Signs Vital signs: Vital Signs Temp 98 F 01/20/20 12:00 Pulse 67 01/20/20 12:00 Resp 19 01/20/20 12:00 BP 128/60 01/20/20 12:00 Pulse Ox 93 L 01/20/20 12:00 Intake & Output 01/19/20 01/20/20 01/20/20 18:59 06:59 18:59 Intake Total 360 780 Output Total 300 300 500 Balance 60 -300 280 Weight 143 kg Intake: Oral 360 780 Output: Urine 300 300 500 Other: Voiding Method Urinal Diaper # Voids 2 1 1 - Exam GENERAL: The patient is alert and oriented x3, not in any acute distress. Lethargic. Well developed, well nourished. HEENT: Pupils are round and equally reacting to light. EOMI. No scleral icterus. No conjunctival pallor. Normocephalic, atraumatic. No pharyngeal erythema. No thyromegaly. CARDIOVASCULAR: S1 and S2 present. No murmurs, rubs, or gallops. Improved JVD PULMONARY: Diminished breath sounds at the bases with a few scattered rhonchi noted, no wheezing or crackles. ABDOMEN: Soft, nontender, nondistended, normoactive bowel sounds. No palpable organomegaly. MUSCULOSKELETAL: No joint swelling or deformity. EXTREMITIES: No cyanosis, clubbing, pedal edema noted with bilateral 2+ pitting edema NEUROLOGICAL: Gross neurological examination did not reveal any focal deficits. Diffusely weak SKIN: No rashes. - Labs CBC & Chem 7: 01/20/20 07:11 01/20/20 07:11 Labs: Abnormal Lab Results - Last 24 Hours (Table) 01/19/20 01/19/20 01/19/20 Range/Units 06:02 16:51 19:55 WBC (3.8-10.6) k/uL Hct (39.0-53.0) % Plt Count (150-450) k/uL Monocytes # (0-1.0) k/uL PT (9.0-12.0) sec INR 2.6 H (<1.2) Sodium (137-145) mmol/L Potassium (3.5-5.1) mmol/L Chloride (98-107) mmol/L BUN (9-20) mg/dL Creatinine (0.66-1.25) mg/dL POC Glucose (mg/dL) 116 H 159 H (75-99) mg/dL 01/20/20 01/20/20 01/20/20 Range/Units 06:18 07:11 07:11 WBC (3.8-10.6) k/uL Hct (39.0-53.0) % Plt Count (150-450) k/uL Monocytes # (0-1.0) k/uL PT 25.0 H (9.0-12.0) sec INR 2.6 H (<1.2) Sodium 133 L (137-145) mmol/L Potassium 5.2 H (3.5-5.1) mmol/L Chloride 96 L (98-107) mmol/L BUN 70 H (9-20) mg/dL Creatinine 1.54 H (0.66-1.25) mg/dL POC Glucose (mg/dL) 109 H (75-99) mg/dL 01/20/20 01/20/20 Range/Units 07:11 11:47 WBC 10.9 H (3.8-10.6) k/uL Hct 53.1 H (39.0-53.0) % Plt Count 117 L (150-450) k/uL Monocytes # 2.0 H (0-1.0) k/uL PT (9.0-12.0) sec INR (<1.2) Sodium (137-145) mmol/L Potassium (3.5-5.1) mmol/L Chloride (98-107) mmol/L BUN (9-20) mg/dL Creatinine (0.66-1.25) mg/dL POC Glucose (mg/dL) 130 H (75-99) mg/dL Assessment and Plan Assessment: -Shortness of breath and acute hypoxic respiratory failure: Secondary to congestive heart failure exacerbation improved now -Congestive heart failure chronic systolic dysfunction EF of around 20% with acute exacerbation -Intracardiac thrombus, currently maintained on Coumadin and INR today is 2.6 with pharmacy to dose. -episode of nonsustained VT , AICD was interrogated which did not show any malfunctioning, patient maintained on oral amiodarone. Cardiology following -Acute renal failure secondary to prerenal azotemia from congestive heart failure, nephrology following, creatinine slightly improved at 1.54 today, patient is maintained on 40 mg of IV Lasix daily -Hypervolemic hyponatremia, patient is presently but hypovolemic -Lactic acidosis secondary to decreased organ perfusion improved at this time -Pneumonia was ruled out -Recent UTI with enterococcus and E. coli, has recently completed course of antibiotics -Hypertension -Continued nicotine use: Counseling was provided -COPD without any acute exacerbation -DVT prophylaxis -GI prophylaxis: Pepcid Plan: Continue current medications, management, and symptomatic treatment. To continue with breathing inhalational treatments and IV Lasix. Multiple medical consultations following. Continue to encourage increase in activity. Case management and social work also following and working on ECF placement upon discharge. Will repeat a.m. labs. Further recommendations to follow.
--- NOTE | 2020-01-20 15:55 | P.DS ---
Providers Date of admission: 01/10/20 16:29 Expected date of discharge: 01/20/20 Attending physician: Shira Worthy Consults: 01/10/20 16:29 Consult Physician Routine Consulting Provider: Alicia Hill Consult Reason/Comments: dyspnea Do you want consulting provider notified?: Yes 01/10/20 16:30 Consult Physician Routine Consulting Provider: Radha Monet Consult Reason/Comments: renal insufficency, hyperkalemia Do you want consulting provider notified?: Yes 01/10/20 17:20 Consult Physician Routine Consulting Provider: Norberto Leach Consult Reason/Comments: CHF Do you want consulting provider notified?: Yes Primary care physician: Joann Scott [facility] Course: final diagnosis -Shortness of breath and acute hypoxic respiratory failure: Secondary to conge stive heart failure exacerbation improved now -Congestive heart failure chronic systolic dysfunction EF of around 20% with acute exacerbation -Intracardiac thrombus, currently maintained on Coumadin -episode of nonsustained VT , AICD was interrogated which did not show any malfunctioning -Acute renal failure secondary to prerenal azotemia from congestive heart failure, -Hypervolemic hyponatremia, patient is presently but hypovolemic -Lactic acidosis secondary to decreased organ perfusion improved -Pneumonia was ruled out -Recent UTI with enterococcus and E. coli -Hypertension -Continued nicotine use: Counseling was provided -COPD without any acute exacerbation -DVT prophylaxis -GI prophylaxis: Pepcid Discharge disposition Patient is being discharged in a stable condition with guarded prognosis to [facility]. Patient will follow-up with Dr. Scott upon discharge. Patient will continue with a short course of oral antibiotics in the form of Augmentin for the next 10 days. Total time taken is 35 minutes. History of present illness This is an 64-year-old male who was recently admitted with congestive heart failure exacerbation and was being closely monitored. echo shows EF of 20-25% and also known to have a intracardiac thrombus. patient is maintained on anticoagulation of Coumadin and will continue at this time. Current INR is 2.6. Prescription provided for repeat INR. adjustments have been made to medications per cardiology and patient is maintained on amiodarone 200 mg twice daily and will continue. Patient was also seen and evaluated by nephrology for acute renal failure and is maintained on 40 mg of Lasix by mouth daily. Patient was on Augmentin and will continue twice daily for the next 1 week to complete the course. Patient continues to have some pedal edema and will need to continue with local wound care along with Miguelito wraps to bilateral lower extremities and patient instructed to elevate legs while at rest. the patient was evaluated by physical therapy recommended subacute rehab for continued PT/OT therapy for strength and mobility. Patient will be going to [facility] today. Currently no reports of chest pain, worsening shortness of breath, or palpitations. Patient is afebrile. No reports of nausea or vomiting and patient is tolerating diet. Guarded prognosis. On exam vital signs are stable. Temp is 98.0F, pulse is 67, respirations are 19, blood pressure is 128/60, oxygen saturation is 93% on room air. Cardio S1, S2 are muffled. Respiratory shows diminished breath sounds at the bases with a few scattered rhonchi noted. Abdomen is soft and nontender. Nervous system shows mild diffuse weakness. Please refer to medication reconciliation sheet for a list of medications. Patient Condition at Discharge: Stable Plan - Discharge Summary Discharge Rx Participant: Yes New Discharge Prescriptions: New Amiodarone [Cordarone] 200 mg PO BID tab Warfarin [Coumadin] 2.5 mg PO DAILY@1800 tab Ipratropium-Albuterol Nebulize [Duoneb 0.5 mg-3 mg/3 ml Soln] 3 ml INHALATION RT-Q4H PRN ml PRN Reason: shortness of breath INSULIN ASPART (NovoLOG) [NovoLOG (formulary)] 0 unit SQ ACHS vial Midodrine [ProAmatine] 10 mg PO AC-TID tab guaiFENesin SYRUP 100MG/5ML [Robitussin] 200 mg PO Q6H PRN ml PRN Reason: Cough Tiotropium 18 Mcg/Puff [Spiriva] 1 puff INHALATION RT-DAILY inhaler Continue Nitroglycerin Sl Tabs [Nitrostat] 0.4 mg SUBLINGUAL Q5M PRN PRN Reason: Chest Pain Carvedilol [Coreg] 12.5 mg PO BID Budesonide/Formoterol Fumarate [Symbicort 160-4.5 Mcg Inhaler] 2 puff INHALATION RT-BID Aspirin EC [Ecotrin Low Dose] 81 mg PO DAILY Acetaminophen Tab [Tylenol] 500 mg PO Q4H PRN PRN Reason: Fever And/ Or Pain Potassium Chloride ER [K-Dur 20] 20 meq PO DAILY Oxybutynin Xl [Ditropan XL] 5 mg PO DAILY Famotidine 20 mg PO BID Amoxic-Pot Clav 875-125Mg [Augmentin 875-125] 1 tab PO Q12H 7 Days #14 cap Changed Furosemide [Lasix] 40 mg PO DAILY #0 Discontinued Ipratropium-Albuterol Nebulize [Duoneb 0.5 mg-3 mg/3 ml Soln] 3 ml INHALATION RT-TID Discharge Medication List Acetaminophen Tab [Tylenol] 500 mg PO Q4H PRN 01/10/20 [History] Aspirin EC [Ecotrin Low Dose] 81 mg PO DAILY 01/10/20 [History] Budesonide/Formoterol Fumarate [Symbicort 160-4.5 Mcg Inhaler] 2 puff INHALATION RT-BID 01/10/20 [History] Carvedilol [Coreg] 12.5 mg PO BID 01/10/20 [History] Famotidine 20 mg PO BID 01/10/20 [History] Nitroglycerin Sl Tabs [Nitrostat] 0.4 mg SUBLINGUAL Q5M PRN 01/10/20 [History] Oxybutynin Xl [Ditropan XL] 5 mg PO DAILY 01/10/20 [History] Potassium Chloride ER [K-Dur 20] 20 meq PO DAILY 01/10/20 [History] Amiodarone [Cordarone] 200 mg PO BID tab 01/20/20 [Rx] Amoxic-Pot Clav 875-125Mg [Augmentin 875-125] 1 tab PO Q12H 7 Days #14 cap 01/20/20 [Rx] Furosemide [Lasix] 40 mg PO DAILY #0 01/20/20 [Rx] INSULIN ASPART (NovoLOG) [NovoLOG (formulary)] 0 unit SQ ACHS vial 01/20/20 [Rx] Ipratropium-Albuterol Nebulize [Duoneb 0.5 mg-3 mg/3 ml Soln] 3 ml INHALATION RT-Q4H PRN ml 01/20/20 [Rx] Midodrine [ProAmatine] 10 mg PO AC-TID tab 01/20/20 [Rx] Tiotropium 18 Mcg/Puff [Spiriva] 1 puff INHALATION RT-DAILY inhaler 01/20/20 [Rx] Warfarin [Coumadin] 2.5 mg PO DAILY@1800 tab 01/20/20 [Rx] guaiFENesin SYRUP 100MG/5ML [Robitussin] 200 mg PO Q6H PRN ml 01/20/20 [Rx] Follow up Appointment(s)/Referral(s): Grzegorz Guido MD [STAFF PHYSICIAN] - 1 Week Joann Scott MD [Primary Care Provider] - 1-2 days Ambulatory/Diagnostic Orders: Basic Metabolic Panel [LAB.AMB] Time Frame: 2 Days, Location: None Selected Prothrombin Time INR [LAB.AMB] Time Frame: 2 Days, Location: None Selected Activity/Diet/Wound Care/Special Instructions: patient is going to [facility] activity as tolerated Continue current diet renal diet, low potassium, low phosphorus, low sodium continue to monitor blood sugars before meals and at bedtime and treat accordingly with sliding scale Continue with antibiotics for 7 days then may discontinue. follow-up with primary care provider upon discharge Follow-up with cardiology in the outpatient setting Repeat labs in 2-3 days to monitor kidney functions Discharge Disposition: TRANSFER TO SNF/ECF
[2020-01-20] MEDS ORDERED: FAMOTIDINE 20 MG TAB PO SCH (21:00)
== END 2020-01-20 16:44 | DRG 291 ==
LOC: EC 15:19 → 3SCARD 16:29
PROVIDERS: ADMIT Internal Medicine; ATTEND Internal Medicine
PROC: 4B02XTZ Measurement of Cardiac Defibrillator, External Approach (ICD-10-PCS; principal; 2020-01-14)
PROC: 05HF33Z Insertion of Infusion Device into Left Cephalic Vein, Percutaneous Approach (ICD-10-PCS; 2020-01-20 07:30)
DX: I13.0 Hypertensive heart and chronic kidney disease with heart failure and stage 1 through stage 4 chronic kidney disease, or unspecified chronic kidney disease (principal); I50.23 Acute on chronic systolic (congestive) heart failure; J96.21 Acute and chronic respiratory failure with hypoxia; E87.1 Hypo-osmolality and hyponatremia; E87.2 Acidosis; I47.2 Ventricular tachycardia; I48.20 Chronic atrial fibrillation, unspecified; D68.9 Coagulation defect, unspecified; N17.9 Acute kidney failure, unspecified; N39.0 Urinary tract infection, site not specified; E87.5 Hyperkalemia; F17.210 Nicotine dependence, cigarettes, uncomplicated; Z45.02 Encounter for adjustment and management of automatic implantable cardiac defibrillator; I25.10 Atherosclerotic heart disease of native coronary artery without angina pectoris; I27.29 Other secondary pulmonary hypertension; I42.9 Cardiomyopathy, unspecified; I51.3 Intracardiac thrombosis, not elsewhere classified; K76.1 Chronic passive congestion of liver; N18.3 Chronic kidney disease, stage 3 (moderate); Z20.828 Contact with and (suspected) exposure to other viral communicable diseases; B95.2 Enterococcus as the cause of diseases classified elsewhere; E56.1 Deficiency of vitamin K; E66.01 Morbid (severe) obesity due to excess calories; E86.1 Hypovolemia; I87.2 Venous insufficiency (chronic) (peripheral); I95.1 Orthostatic hypotension; J44.9 Chronic obstructive pulmonary disease, unspecified; T50.2X5A Adverse effect of carbonic-anhydrase inhibitors, benzothiadiazides and other diuretics, initial encounter; Z79.01 Long term (current) use of anticoagulants; Z79.51 Long term (current) use of inhaled steroids; Z79.82 Long term (current) use of aspirin; Z79.899 Other long term (current) drug therapy; Z82.49 Family history of ischemic heart disease and other diseases of the circulatory system; Z87.440 Personal history of urinary (tract) infections; Z99.81 Dependence on supplemental oxygen; Z68.39 Body mass index [BMI] 39.0-39.9, adult
CPT/HCPCS: 36410; 36415; 71045; 71046; 76937; 80048; 80053; 81001; 81003; 83605; 83735; 83880; 84132; 85025; 85027; 85610; 85730; 87040; 93005; 93306; 94640; 96365; 96375; 99291

== ENCOUNTER 2020-04-12 11:28 | Inpatient (IN) | payer BC ==
--- NOTE | 2020-04-12 11:50 | ED ---
General Adult HPI - General Chief complaint: Shortness of Breath Stated complaint: SOB Time Seen by Provider: 04/12/20 11:34 Source: patient, EMS, RN notes reviewed Mode of arrival: EMS Limitations: no limitations - History of Present Illness Initial comments: 64-year-old male history of atrial fibrillation, CHF, COPD presenting with dyspnea. Patient was taken to the [facility], he typically states that he wears oxygen at night and throughout the day as needed. He did not have oxygen at the [facility]. He states he did take his medication as prescribed and this morning. He reports worsening dyspnea, no cough, no chest pain. He has chronic lower extremity edema - Related Data Home Medications Medication Instructions Recorded Confirmed Acetaminophen Tab [Tylenol] 500 mg PO Q4H PRN 01/10/20 01/10/20 Aspirin EC [Ecotrin Low Dose] 81 mg PO DAILY 01/10/20 01/10/20 Budesonide/Formoterol Fumarate 2 puff INHALATION RT-BID 01/10/20 01/10/20 [Symbicort 160-4.5 Mcg Inhaler] Carvedilol [Coreg] 12.5 mg PO BID 01/10/20 01/10/20 Famotidine 20 mg PO BID 01/10/20 01/10/20 Nitroglycerin Sl Tabs [Nitrostat] 0.4 mg SUBLINGUAL Q5M PRN 01/10/20 01/10/20 Oxybutynin Xl [Ditropan XL] 5 mg PO DAILY 01/10/20 01/10/20 Potassium Chloride ER [K-Dur 20] 20 meq PO DAILY 01/10/20 01/10/20 Previous Rx's Medication Instructions Recorded Amiodarone [Cordarone] 200 mg PO BID tab 01/20/20 Amoxic-Pot Clav 875-125Mg 1 tab PO Q12H 7 Days #14 cap 01/20/20 [Augmentin 875-125] Furosemide [Lasix] 40 mg PO DAILY #0 01/20/20 INSULIN ASPART (NovoLOG) [NovoLOG 0 unit SQ ACHS vial 01/20/20 (formulary)] Ipratropium-Albuterol Nebulize 3 ml INHALATION RT-Q4H PRN ml 01/20/20 [Duoneb 0.5 mg-3 mg/3 ml Soln] Midodrine [ProAmatine] 10 mg PO AC-TID tab 01/20/20 Tiotropium 18 Mcg/Puff [Spiriva] 1 puff INHALATION RT-DAILY inhaler 01/20/20 Warfarin [Coumadin] 2.5 mg PO DAILY@1800 tab 01/20/20 guaiFENesin SYRUP 100MG/5ML 200 mg PO Q6H PRN ml 01/20/20 [Robitussin] Allergies Allergy/AdvReac Type Severity Reaction Status Date / Time No Known Allergies Allergy Verified 04/12/20 11:30 Review of Systems ROS Statement: Those systems with pertinent positive or pertinent negative responses have been documented in the HPI. ROS Other: All systems not noted in ROS Statement are negative. Past Medical History Past Medical History: Atrial Fibrillation, Coronary Artery Disease (CAD), Heart Failure, COPD, Hypertension Additional Past Medical History / Comment(s): CHF with an ejection fraction of 20-25%, history of AICD placement, nonocclusive coronary artery disease, morbid obesity, chronic kidney disease, morbid obesity, COPD, enterococcal UTI, history of chronic atrial fibrillation, History of Any Multi-Drug Resistant Organisms: None Reported Past Surgical History: Pacemaker Additional Past Surgical History / Comment(s): Previous cardiac catheterization,. Medtronic Pacemaker model #[id number]. Serial #[id number] Past Anesthesia/Blood Transfusion Reactions: No Reported Reaction Type of Cardiac Device: Permanent Pacemaker, AICD Device Placement Date:: 2016 Past Psychological History: No Psychological Hx Reported Smoking Status: Current every day smoker Past Alcohol Use History: None Reported Past Drug Use History: None Reported - Past Family History Father Family Medical History: Myocardial Infarction ([place]) General Exam Limitations: no limitations General appearance: alert, in no apparent distress Head exam: Present: atraumatic, normocephalic Eye exam: Present: normal appearance, PERRL ENT exam: Present: normal exam Neck exam: Present: normal inspection Respiratory exam: Present: respiratory distress, rales, decreased breath sounds Cardiovascular Exam: Present: bradycardia, irregular rhythm GI/Abdominal exam: Present: soft, distended. Absent: tenderness, guarding, rebound Extremities exam: Present: pedal edema (Chronic venous stasis) Neurological exam: Present: alert, oriented X3, CN II-XII intact. Absent: motor sensory deficit Psychiatric exam: Present: normal affect, normal mood Skin exam: Present: warm, dry Course Vital Signs 04/12/20 04/12/20 04/12/20 11:30 13:11 13:31 Temperature 98.1 F Pulse Rate 83 66 66 Respiratory 16 16 16 Rate Blood Pressure 95/73 95/70 121/86 O2 Sat by Pulse 99 96 94 L Oximetry EKG Findings - EKG Comments: EKG Findings:: EKG: Paced rhythm, with PVC, low voltage, rate of 78, SD interval 154, QRS duration approximately 100, QTC 449. Medical Decision Making - Medical Decision Making 61-year-old male with dyspnea, off oxygen. Patient has COPD, CHF. Workup reveals soft normal CBC, CMP shows a creatinine which is baseline, patient has elevated BNP 14,000. Chest x-ray showing effusion with associated atelectasis. He is given Lasix, steroids, albuterol in the emergency department. He will be admitted for COPD and CHF. Case discussed with Dr. jackson who will admit. - Lab Data Result diagrams: 04/12/20 11:42 04/12/20 11:42 Lab Results 04/12/20 04/12/20 04/12/20 Range/Units 11:42 11:42 11:42 WBC 9.4 (3.8-10.6) k/uL RBC 4.69 (4.30-5.90) m/uL Hgb 13.6 (13.0-17.5) gm/dL Hct 45.5 (39.0-53.0) % MCV 96.9 (80.0-100.0) fL MCH 29.0 (25.0-35.0) pg MCHC 29.9 L (31.0-37.0) g/dL RDW 17.5 H (11.5-15.5) % Plt Count 179 (150-450) k/uL Neutrophils % 81 % Lymphocytes % 8 % Monocytes % 7 % Eosinophils % 2 % Basophils % 1 % Neutrophils # 7.6 (1.3-7.7) k/uL Lymphocytes # 0.8 L (1.0-4.8) k/uL Monocytes # 0.6 (0-1.0) k/uL Eosinophils # 0.2 (0-0.7) k/uL Basophils # 0.1 (0-0.2) k/uL Hypochromasia Marked Anisocytosis Slight Macrocytosis Slight PT 18.6 H (9.0-12.0) sec INR 1.9 H (<1.2) APTT 28.5 (22.0-30.0) sec Sodium 136 L (137-145) mmol/L Potassium 5.0 (3.5-5.1) mmol/L Chloride 100 (98-107) mmol/L Carbon Dioxide 30 (22-30) mmol/L Anion Gap 6 mmol/L BUN 42 H (9-20) mg/dL Creatinine 1.52 H (0.66-1.25) mg/dL Est GFR (CKD-EPI)AfAm 56 (>60 ml/min/1.73 sqM) Est GFR (CKD-EPI)NonAf 48 (>60 ml/min/1.73 sqM) Glucose 108 H (74-99) mg/dL Plasma Lactic Acid Harish (0.7-2.0) mmol/L Calcium 8.6 (8.4-10.2) mg/dL Magnesium 2.1 (1.6-2.3) mg/dL Total Bilirubin 2.2 H (0.2-1.3) mg/dL AST 29 (17-59) U/L ALT 12 (4-49) U/L Alkaline Phosphatase 182 H (38-126) U/L Troponin I (0.000-0.034) ng/mL NT-Pro-B Natriuret Pep pg/mL Total Protein 7.5 (6.3-8.2) g/dL Albumin 3.2 L (3.5-5.0) g/dL 04/12/20 04/12/20 04/12/20 Range/Units 11:42 11:42 11:42 WBC (3.8-10.6) k/uL RBC (4.30-5.90) m/uL Hgb (13.0-17.5) gm/dL Hct (39.0-53.0) % MCV (80.0-100.0) fL MCH (25.0-35.0) pg MCHC (31.0-37.0) g/dL RDW (11.5-15.5) % Plt Count (150-450) k/uL Neutrophils % % Lymphocytes % % Monocytes % % Eosinophils % % Basophils % % Neutrophils # (1.3-7.7) k/uL Lymphocytes # (1.0-4.8) k/uL Monocytes # (0-1.0) k/uL Eosinophils # (0-0.7) k/uL Basophils # (0-0.2) k/uL Hypochromasia Anisocytosis Macrocytosis PT (9.0-12.0) sec INR (<1.2) APTT (22.0-30.0) sec Sodium (137-145) mmol/L Potassium (3.5-5.1) mmol/L Chloride (98-107) mmol/L Carbon Dioxide (22-30) mmol/L Anion Gap mmol/L BUN (9-20) mg/dL Creatinine (0.66-1.25) mg/dL Est GFR (CKD-EPI)AfAm (>60 ml/min/1.73 sqM) Est GFR (CKD-EPI)NonAf (>60 ml/min/1.73 sqM) Glucose (74-99) mg/dL Plasma Lactic Acid Harish 1.9 (0.7-2.0) mmol/L Calcium (8.4-10.2) mg/dL Magnesium (1.6-2.3) mg/dL Total Bilirubin (0.2-1.3) mg/dL AST (17-59) U/L ALT (4-49) U/L Alkaline Phosphatase (38-126) U/L Troponin I 0.019 (0.000-0.034) ng/mL NT-Pro-B Natriuret Pep 95463 pg/mL Total Protein (6.3-8.2) g/dL Albumin (3.5-5.0) g/dL Disposition Clinical Impression: COPD (chronic obstructive pulmonary disease), Congestive heart failure Disposition: ADMITTED IP TO THIS [facility] Condition: Stable Is patient prescribed a controlled substance at d/c from ED?: No Referrals: Joann Scott MD [Primary Care Provider] - 1-2 days Decision to Admit Reason: Admit from EC Decision Date: 04/12/20 Decision Time: 14:09
--- NOTE | 2020-04-12 12:22 | XR ---
EXAMINATION TYPE: XR chest 2V DATE OF EXAM: 04/12/2020 COMPARISON: Prior chest x-ray dated 01/19/2020 HISTORY: Difficulty breathing TECHNIQUE: Frontal and lateral views of the chest are obtained. FINDINGS: Intracardiac defibrillator is stable. There is blunting of the posterior costophrenic angl e seen on the lateral exam. Retrocardiac lucency may represent hiatal hernia. The cardiac silhouette size is enlarged as on prior. The osseous structures are intact. IMPRESSION: Persistent left lower lobe atelectasis and associated effusion, correlate to exclude pne umonia. Findings may be chronic.
[2020-04-12 12:32] LABS: Albumin 3.2 g/dL (3.5-5.0); Calcium 8.6 mg/dL (8.4-10.2); Magnesium 2.1 mg/dL (1.6-2.3); Total Bilirubin 2.2 mg/dL (0.2-1.3); Total Protein 7.5 g/dL (6.3-8.2)
[2020-04-12 12:44] LABS: INR 1.9 (<1.2); Partial Thromboplastin Time 28.5 sec (22.0-30.0); Prothrombin Time 18.6 sec (9.0-12.0)
[2020-04-12 12:45] LABS: Anisocytosis Slight; Basophils # (A) 0.1 k/uL (0-0.2); Basophils % (A) 1 %; Eosinophils # (A) 0.2 k/uL (0-0.7); Eosinophils % (A) 2 %; HCT 45.5 % (39.0-53.0); HGB 13.6 gm/dL (13.0-17.5); Hypochromasia Marked; Lymphocytes # (A) 0.8 k/uL (1.0-4.8); Lymphocytes % (A) 8 %; MCHC 29.9 g/dL (31.0-37.0); MCV 96.9 fL (80.0-100.0); Macrocytosis Slight; Mean Platelet Volume 8.7; Monocytes # (A) 0.6 k/uL (0-1.0); Monocytes % (A) 7 %; Neutrophils # (A) 7.6 k/uL (1.3-7.7); Neutrophils % (A) 81 %; Platelet Count 179 k/uL (150-450); RBC 4.69 m/uL (4.30-5.90); RDW 17.5 % (11.5-15.5); WBC 9.4 k/uL (3.8-10.6)
[2020-04-12] MEDS ORDERED: FUROSEMIDE 10 MG/ML 4 ML VIAL IV STA (13:50)
[2020-04-12] MEDS ORDERED: ACETAMINOPHEN TAB 325 MG TAB PO PRN (14:06)
[2020-04-12] MEDS ORDERED: NALOXONE 0.4 MG/ML 1 ML VIAL IV PRN (14:06)
[2020-04-12] MEDS ORDERED: predniSONE 50 MG TAB PO STA (14:07)
[2020-04-12] MEDS ORDERED: ALBUTEROL NEBULIZED 2.5 MG/3 ML INHALATION SCH (16:00)
[2020-04-12] MEDS: ALBUTEROL HFA INHALER INHALATION SCH ×3 (16:00→23:09)
[2020-04-12] MEDS ORDERED: IPRATROPIUM-ALBUTEROL 3 ML NEB INHALATION PRN (16:09)
[2020-04-12] MEDS: SYMBICORT 160-4.5 MCG INHALER INHALATION SCH (17:55)
[2020-04-12] MEDS ORDERED: WARFARIN 2 MG TAB PO ONE (18:00)
--- NOTE | 2020-04-12 22:12 | P.HPIM ---
History of Present Illness H&P Date: 04/12/20 Chief Complaint: PIETRO Patient is a 64-year-old male with a known history of chronic CHF with ejection fraction 20 to 25%, history of AICD placement, coronary artery disease, atrial fibrillation on anticoagulation with Coumadin, hypertension and COPD and currently everyday smoker was [facility] due to worsening shortness of breath for the past 1 week. Patient is on home oxygen at night and also throughout the day as needed. Patient was taken to [facility]. He did not have oxygen at the [facility]. Patient is also having worsening leg swelling and shortness of breath and was brought to the hospital. Otherwise patient denied any fever or chills. No cough or sputum production. No chest pain. Patient does have bilateral lower extremity worsening edema. Chest x-ray showed persistent left lower lobe atelectasis and associated effusio n. Correlate to exclude pneumonia. Findings may be chronic. EKG showed paced rhythm. And low voltage for QRS and Laboratory data showed INR 1.9 Sodium 130s, potassium 5.0, BUN 4020 creatinine 1.52 proBNP 86159 Review of Systems Constitutional: Patient denies any fever or chills . No generalized weakness or weight loss. Abdomen: Patient denied nausea vomiting and diarrhea and abdominal pain. Cardiovascular: Patient denies any chest pain . worsening short of breath. no palpitations.leg swelling. Respiratory: patient denied any cough or sputum production. No shortness of breath Neurologic: Patient denied any numbness or tingling headache. Musculoskeletal: Patient denies any complaints of joint swelling or deformity. Skin: Negative Psychiatric: Negative Endocrine: No heat or cold intolerance. No recent weight gain. Genitourinary: No dysuria or hematuria. All other 14 point ROS negative except the above Past Medical History Past Medical History: Atrial Fibrillation, Coronary Artery Disease (CAD), Heart Failure, COPD, Hypertension, Pneumonia Additional Past Medical History / Comment(s): CHF with an ejection fraction of 20-25%, history of AICD placement, nonocclusive coronary artery disease, morbid obesity, chronic kidney disease, morbid obesity, COPD, enterococcal UTI, history of chronic atrial fibrillation, History of Any Multi-Drug Resistant Organisms: None Reported Past Surgical History: Pacemaker Additional Past Surgical History / Comment(s): Previous cardiac catheterization,. Medtronic Pacemaker model #[id number]. Serial #[id number] Past Anesthesia/Blood Transfusion Reactions: No Reported Reaction Type of Cardiac Device: Permanent Pacemaker, AICD Device Placement Date:: 2016 Past Psychological History: No Psychological Hx Reported Smoking Status: Current every day smoker Past Alcohol Use History: None Reported Past Drug Use History: None Reported - Past Family History Father Family Medical History: Myocardial Infarction ([place]) Medications and Allergies Home Medications Medication Instructions Recorded Confirmed Type Budesonide/Formoterol Fumarate 2 puff INHALATION RT-BID 01/10/20 04/12/20 History [Symbicort 160-4.5 Mcg Inhaler] Oxybutynin Xl [Ditropan XL] 5 mg PO DAILY 01/10/20 04/12/20 History Potassium Chloride ER [K-Dur 20] 20 meq PO DAILY 01/10/20 04/12/20 History Ipratropium-Albuterol Nebulize 3 ml INHALATION RT-Q4H PRN ml 01/20/20 04/12/20 Rx [Duoneb 0.5 mg-3 mg/3 ml Soln] Atorvastatin [Lipitor] 40 mg PO DAILY 04/12/20 04/12/20 History Carvedilol [Coreg] 25 mg PO BID 04/12/20 04/12/20 History Furosemide [Lasix] 40 mg PO BID 04/12/20 04/12/20 History Isosorbide Mononitrate ER [Imdur] 30 mg PO DAILY 04/12/20 04/12/20 History Pantoprazole [Protonix] 40 mg PO DAILY 04/12/20 04/12/20 History Sulfamethox-Tmp 800-160Mg [Bactrim 1 tab PO Q12H 04/12/20 04/12/20 History DS 800-160 mg] Warfarin [Coumadin] 1.5 mg PO MOWEFR 04/12/20 04/12/20 History Warfarin [Coumadin] 3 mg PO SUTUTHSA 04/12/20 04/12/20 History hydrOXYzine HCL [Atarax] 25 mg PO HS 04/12/20 04/12/20 History Allergies Allergy/AdvReac Type Severity Reaction Status Date / Time No Known Allergies Allergy Verified 04/12/20 15:16 Physical Exam Vitals: Vital Signs Temp Pulse Resp BP Pulse Ox 04/12/20 16:57 86 16 115/81 96 04/12/20 16:32 81 16 129/109 98 04/12/20 14:32 85 16 115/72 97 04/12/20 14:08 72 16 96 04/12/20 13:31 66 16 121/86 94 L 04/12/20 13:11 66 16 95/70 96 04/12/20 11:30 98.1 F 83 16 95/73 99 Intake and Output 04/12/20 04/12/20 04/12/20 06:59 14:59 22:59 Other: Weight 149.685 kg 149.685 kg PHYSICAL EXAMINATION: Patient is lying in the bed comfortably, no acute distress, awake alert and oriented.. HEENT: Normocephalic. Neck is supple. Pupils reactive. Nostrils clear. Oral cavity is moist. Ears reveal no drainage. Neck reveals no JVD, carotid bruits, or thyromegaly. CHEST EXAMINATION: Trachea is central. Symmetrical expansion. Left basilar diminished air entry and crackles present. Mild expiratory wheezing. Nonlabored breathing.. CARDIAC: Normal S1, S2 with no gallops. No murmurs ABDOMEN: Soft. Bowel sounds normal. No organomegaly. No abdominal bruits. Extremities: 3+ b/l LE edema. No clubbing or cyanosis Neurologically awake, alert, oriented x3 with well-coordinated movements. No focal deficits noted Skin: No rash or skin lesions. Psychiatric: Coperative. Nonsuicidal Musculoskeletal: No joint swelling or deformity. Normal range of motion. Results CBC & Chem 7: 04/12/20 11:42 04/12/20 11:42 Labs: Abnormal Lab Results - Last 24 Hours (Table) 04/12/20 04/12/20 04/12/20 Range/Units 11:42 11:42 11:42 MCHC 29.9 L (31.0-37.0) g/dL RDW 17.5 H (11.5-15.5) % Lymphocytes # 0.8 L (1.0-4.8) k/uL PT 18.6 H (9.0-12.0) sec INR 1.9 H (<1.2) Sodium 136 L (137-145) mmol/L BUN 42 H (9-20) mg/dL Creatinine 1.52 H (0.66-1.25) mg/dL Glucose 108 H (74-99) mg/dL Total Bilirubin 2.2 H (0.2-1.3) mg/dL Alkaline Phosphatase 182 H (38-126) U/L Albumin 3.2 L (3.5-5.0) g/dL Thrombosis Risk Factor Assmnt - DVT/VTE Prophylaxis DVT/VTE Prophylaxis: Pharmacologic Prophylaxis ordered Assessment and Plan Assessment: Acute on chronic CHF with systolic dysfunction ejection fraction 5%. COPD on home oxygen with mild exacerbation. Atrial fibrillation chronic persistent on anticoagulation with Coumadin History of AICD placement Currently everyday smoker Hypertension Coronary disease CKD stage III Morbid obesity Coumadin monitoring Plan: Patient will be continued on Lasix IV 40 mg every 12 and monitor renal function. Continue with Coumadin monitoring and Coreg, Imdur. Cardiology was consulted. Will check lipid panel. Smoking cessation has been counseled. Further recommendations based on the clinical course. Time with Patient: Greater than 30
[2020-04-12] MEDS: FUROSEMIDE 10 MG/ML 4 ML VIAL IV SCH (23:56)
[2020-04-13] MEDS: ALBUTEROL HFA INHALER INHALATION SCH ×6 (03:30→19:51)
[2020-04-13] MEDS ORDERED: carvediloL 3.125 MG TAB PO SCH (07:30)
[2020-04-13 07:45] LABS: Anisocytosis Slight; HCT 46.4 % (39.0-53.0); HGB 13.8 gm/dL (13.0-17.5); Hypochromasia Marked; MCHC 29.8 g/dL (31.0-37.0); MCV 97.4 fL (80.0-100.0); Macrocytosis Slight; Mean Platelet Volume 9.1; Platelet Count 188 k/uL (150-450); RBC 4.76 m/uL (4.30-5.90); RDW 17.4 % (11.5-15.5); WBC 10.6 k/uL (3.8-10.6)
[2020-04-13] MEDS: ATORVASTATIN 40 MG TAB PO SCH (07:51)
[2020-04-13] MEDS: ISOSORBIDE MONONITRATE ER 30 MG TAB.ER.24H PO SCH (07:51)
[2020-04-13] MEDS: PANTOPRAZOLE 40 MG TABLET PO SCH (07:51)
[2020-04-13] MEDS: FUROSEMIDE 10 MG/ML 4 ML VIAL IV SCH (07:52)
[2020-04-13] MEDS: SYMBICORT 160-4.5 MCG INHALER INHALATION SCH ×2 (08:13→18:54)
[2020-04-13] MEDS ORDERED: POTASSIUM CHLORIDE ER 20 MEQ TAB.ER PO SCH (09:00)
[2020-04-13 09:26] LABS: Lymphocytes # (M) 1.59 k/uL (1.0-4.8); Monocytes # (M) 0.21 k/uL (0-1.0); Neutrophils % (M) 83 %; Nucleated Red Blood Cells 0 /100 WBC (0-0); Total Cells Counted 100
[2020-04-13 10:57] LABS: African American GFR (CKD) 48.7 (60.0-200.0); Albumin 3.3 g/dL (3.80-4.90); Albumin/Globulin Ratio 0.89 (1.60-3.17); Anion Gap 12.9 mmol/L (4.00-12.00); BUN/Creat Ratio 27.06 Ratio (12.00-20.00); Calcium 8.9 mg/dL (8.7-10.3); Carbon Dioxide 24.1 mmol/L (21.6-31.8); Chol/HDL Ratio 4.93; Globulin 3.7 g/dL (1.6-3.3); LDL Cholesterol,Calculated 44.2 mg/dL (0.0-131.0); Potassium 5.4 mmol/L (3.5-5.5); Total Bilirubin 2.1 mg/dL (0.3-1.2); VLDL Calculation 14.8 mg/dL (5.00-40.00)
[2020-04-13 12:27] LABS: INR 2.06 (0.90-1.11); Prothrombin Time 21.1 sec (9.9-11.9)
--- NOTE | 2020-04-13 13:04 | P.CRDCN ---
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 He follows in the office with Dr. Snider, he states he just saw him last week. We have been asked to see in consultation for exacerbation of CHF. He is currently incarcerated with an office at the bedside. He states he has been having worsening shortness of breath over the previous 3-5 days, non-productive cough and some worsening lower extremity swelling. He denies chest pain, dizziness or palpitations. He was just incarcerated 1 day ago and states they did not have oxygen available for him when he was there. He has been started on lasix 40 mg IV BID in the ER. DIAGNOSTICS EKG reveals pace rhythm. Chest xray persistent left lower lobe atelectasis and associated effusion. . Laboratory reviewed, WBC 10.6, hemoglobin 13.8, platelets 188, INR 2.0, sodium 137, potassium 5.4, creatinine 1.7, magnesium 2.1, troponin negative 1, and T proBNP 14,800, LDL 44 and HDL 15. Current cardiac medications include coumadin, Lasix 40 mg twice a day, atorvastatin 40 mg daily, carvedilol 25 mg twice a day, Imdur 30 mg daily and daily potassium supplementation. Most recent echocardiogram obtained here in January 2020 revealed impaired LV systolic function with ejection fraction 20-25%, global hypokinesia, moderate pulmonary hypertension with RVSP of 52 mmHg in the left ventricular apical mass noted thought to be thrombus. REVIEW OF SYSTEMS At the time of my exam: CONSTITUTIONAL: Denies fever or chills. CARDIOVASCULAR: Complains of shortness of breath. Denies chest pain, orthopnea, PND or palpitations. RESPIRATORY: Complains of cough. GASTROINTESTINAL: Denies abdominal pain, diarrhea, constipation, nausea or vomiting. MUSCULOSKELETAL: Denies myalgias. NEUROLOGIC: Denies numbness, tingling or weakness. ENDOCRINE: Denies fatigue, weight change, polydipsia or polyurina. GENITOURINARY: Denies burning, hematuria or urgency with micturation. HEMATOLOGIC: Denies history of anemia or bleeding. PHYSICAL EXAMINATION Blood pressure 115/82 heart rate 74 afebrile and maintaining oxygen saturation on nasal cannula. CONSTITUTIONAL: No apparent distress. HEENT: Head is normocephalic. Pupils are equal, round. Sclerae anicteric. Mucous membranes of the mouth are moist. No JVD. No carotid bruit. CHEST EXAMINATION: Bibasilar rales, faint and intermittent. No rhonchi or wheezes. No chest wall tenderness is noted on palpation or with deep breathing. Diminished bilaterally. HEART EXAMINATION: Regular rate and rhythm. S1, S2 heard. No murmurs, gallops or rub. ABDOMEN: Soft, nontender. Positive bowel sounds. EXTREMITIES: Bilateral lower extremity edema and erythema noted with significant dryness and skin sloughing and no calf tenderness. NEUROLOGIC EXAMINATION: Patient is awake, alert and oriented x3. ASSESSMENT Acute on chronic systolic heart failure Left ventricular thrombus, initiated on coumadin 01/2020 Chronic kidney disease COPD Pulmonary hypertension Coronary artery disease s/p AICD Hypertension Dyslipidemia Chronic nicotine dependence PLAN Continue to diurese for another 24 hours, transition to oral lasix tomorrow. Hold daily potassium supplementation and consider initiating aldactone tomorrow. Repeat BMP in the morning. Increase coreg to 12.5 mg BID, was only started on admission at 3.125 mg. If blo od pressure tolerates will increase to home dose of 25 mg tomorrow. Further recommendations to follow based on clinical course. Thank you kindly for this consultation. Nurse Practitioner note has been reviewed, I agree with a documented findings and plan of care. Patient was seen and examined. Past Medical History Past Medical History: Atrial Fibrillation, Coronary Artery Disease (CAD), Heart Failure, COPD, Hypertension, Pneumonia Additional Past Medical History / Comment(s): CHF with an ejection fraction of 20-25%, history of AICD placement, nonocclusive coronary artery disease, morbid obesity, chronic kidney disease, morbid obesity, COPD, enterococcal UTI, history of chronic atrial fibrillation, History of Any Multi-Drug Resistant Organisms: None Reported Past Surgical History: Pacemaker Additional Past Surgical History / Comment(s): Previous cardiac catheterization,. Medtronic Pacemaker model #[id number]. Serial #[id number] Past Anesthesia/Blood Transfusion Reactions: No Reported Reaction Type of Cardiac Device: Permanent Pacemaker, AICD Device Placement Date:: 2016 Past Psychological History: No Psychological Hx Reported Smoking Status: Current every day smoker Past Alcohol Use History: None Reported Past Drug Use History: None Reported - Past Family History Father Family Medical History: Myocardial Infarction ([place]) Medications and Allergies Home Medications Medication Instructions Recorded Confirmed Type Budesonide/Formoterol Fumarate 2 puff INHALATION RT-BID 01/10/20 04/12/20 History [Symbicort 160-4.5 Mcg Inhaler] Oxybutynin Xl [Ditropan XL] 5 mg PO DAILY 01/10/20 04/12/20 History Potassium Chloride ER [K-Dur 20] 20 meq PO DAILY 01/10/20 04/12/20 History Ipratropium-Albuterol Nebulize 3 ml INHALATION RT-Q4H PRN ml 01/20/20 04/12/20 Rx [Duoneb 0.5 mg-3 mg/3 ml Soln] Atorvastatin [Lipitor] 40 mg PO DAILY 04/12/20 04/12/20 History Carvedilol [Coreg] 25 mg PO BID 04/12/20 04/12/20 History Furosemide [Lasix] 40 mg PO BID 04/12/20 04/12/20 History Isosorbide Mononitrate ER [Imdur] 30 mg PO DAILY 04/12/20 04/12/20 History Pantoprazole [Protonix] 40 mg PO DAILY 04/12/20 04/12/20 History Sulfamethox-Tmp 800-160Mg [Bactrim 1 tab PO Q12H 04/12/20 04/12/20 History DS 800-160 mg] Warfarin [Coumadin] 1.5 mg PO MOWEFR 04/12/20 04/12/20 History Warfarin [Coumadin] 3 mg PO SUTUTHSA 04/12/20 04/12/20 History hydrOXYzine HCL [Atarax] 25 mg PO HS 04/12/20 04/12/20 History Allergies Allergy/AdvReac Type Severity Reaction Status Date / Time No Known Allergies Allergy Verified 04/12/20 15:16 Physical Exam Vitals: Vital Signs Temp Pulse Pulse Resp BP BP Pulse Ox 04/13/20 08:00 22 04/13/20 07:00 97.5 F L 74 22 115/82 98 04/13/20 04:15 20 04/13/20 03:38 98 04/13/20 01:00 98.4 F 39 L 20 112/71 92 L 04/13/20 00:20 20 04/12/20 20:30 97.7 F 77 20 121/70 91 L 04/12/20 20:00 77 20 04/12/20 16:57 86 16 115/81 96 04/12/20 16:32 81 16 129/109 98 04/12/20 14:32 85 16 115/72 97 04/12/20 14:08 72 16 96 04/12/20 13:31 66 16 121/86 94 L 04/12/20 13:11 66 16 95/70 96 Intake and Output 04/12/20 04/13/20 04/13/20 22:59 06:59 14:59 Intake Total 200 100 Output Total 2 Balance 200 98 Intake: Oral 200 100 Output: Urine/Stool Mix 2 Other: Voiding Method Toilet Toilet Urinal Urinal # Voids 1 Weight 149.685 kg Results 04/13/20 06:19 04/13/20 06:19 Cardiac Enzymes 04/12/20 04/13/20 Range/Units 11:42 06:19 AST 33 (14-35) U/L Troponin I 0.019 (0.000-0.034) ng/mL Coagulation 04/12/20 04/13/20 Range/Units 11:42 06:19 PT 18.6 H 21.1 H (9.0-12.0) sec APTT 28.5 (22.0-30.0) sec Lipids 04/13/20 Range/Units 06:19 Triglycerides 74.0 (0.0-149.0) mg/dL Cholesterol 74 (0-200) mg/dL HDL Cholesterol 15.0 L (40.0-60.0) mg/dL Cholesterol/HDL Ratio 4.93 CBC 04/12/20 04/13/20 Range/Units 11:42 06:19 WBC 9.4 10.6 (3.8-10.6) k/uL RBC 4.69 4.76 (4.30-5.90) m/uL Hgb 13.6 13.8 (13.0-17.5) gm/dL Hct 45.5 46.4 (39.0-53.0) % Plt Count 179 188 (150-450) k/uL Comprehensive Metabolic Panel 04/13/20 Range/Units 06:19 Sodium 137 (135-145) mmol/L Potassium 5.4 (3.5-5.5) mmol/L Chloride 100 (96-109) mmol/L Carbon Dioxide 24.1 (21.6-31.8) mmol/L BUN 46.0 H (9.0-27.0) mg/dL Creatinine 1.7 H (0.6-1.5) mg/dL Glucose 100 (70-110) mg/dL Calcium 8.9 (8.7-10.3) mg/dL AST 33 (14-35) U/L ALT 15 (10-49) U/L Alkaline Phosphatase 177 H (41-126) U/L Total Protein 7.0 (6.2-8.2) g/dL Albumin 3.30 L (3.80-4.90) g/dL Current Medications Generic Name Dose Route Start Last Admin Trade Name Freq PRN Reason Stop Dose Admin Acetaminophen 650 mg 04/12/20 14:06 Acetaminophen Tab 325 Mg Tab PO Q6HR PRN Mild Pain or Fever > 100.5 Albuterol Sulfate 2 puff 04/12/20 16:00 04/13/20 11:52 Albuterol Hfa Inhaler INHALATION 2 puff RT-Q4H AMY Administration Albuterol/Ipratropium 3 ml 04/12/20 16:09 Ipratropium-Albuterol 3 Ml Neb INHALATION RT-Q4H PRN shortness of breath Atorvastatin Calcium 40 mg 04/13/20 09:00 04/13/20 07:51 Atorvastatin 40 Mg Tab PO 40 mg DAILY AMY Administration Budesonide/Formoterol Fumarate 2 puff 04/12/20 20:00 04/13/20 08:13 Symbicort 160-4.5 Mcg Inhaler INHALATION 2 puff RT-BID AMY Administration Carvedilol 3.125 mg 04/13/20 07:30 04/13/20 07:51 Carvedilol 3.125 Mg Tab PO 3.125 mg BID-W/MEALS AMY Administration Furosemide 40 mg 04/13/20 00:00 04/13/20 07:52 Furosemide 10 Mg/Ml 4 Ml Vial IV 40 mg Q12HR AMY Administration Isosorbide Mononitrate 30 mg 04/13/20 09:00 04/13/20 07:51 Isosorbide Mononitrate Er 30 Mg Tab.Er.24h PO 30 mg DAILY AMY Administration Miscellaneous Information 1 each 04/12/20 16:12 Warfarin Per Pharmacy MISCELLANE DIRECTED PRN Per Protocol Protocol Naloxone HCl 0.2 mg 04/12/20 14:06 Naloxone 0.4 Mg/Ml 1 Ml Vial IV Q2M PRN Opioid Reversal Pantoprazole Sodium 40 mg 04/13/20 07:30 04/13/20 07:51 Pantoprazole 40 Mg Tablet PO 40 mg [id number] AMY Administration Potassium Chloride 20 meq 04/13/20 09:00 04/13/20 07:52 Potassium Chloride Er 20 Meq Tab.Er PO 20 meq DAILY AMY Administration Intake and Output 04/12/20 04/13/20 04/13/20 22:59 06:59 14:59 Intake Total 200 100 Output Total 2 Balance 200 98 Intake: Oral 200 100 Output: Urine/Stool Mix 2 Other: Voiding Method Toilet Toilet Urinal Urinal # Voids 1 Weight 149.685 kg 04/13/20 06:19 04/13/20 06:19
[2020-04-13] MEDS ORDERED: SODIUM POLYSTYRENE SULFONATE 15 GM/60 ML BOTTLE PO STA (13:21)
[2020-04-13] MEDS: AZITHROMYCIN 500 MG TAB PO SCH (13:49)
--- NOTE | 2020-04-13 15:23 | P.PN ---
Subjective 64-year-old male with a known history of chronic CHF with ejection fraction 20 to 25%, history of AICD placement, coronary artery disease, atrial fibrillation on anticoagulation with Coumadin, hypertension and COPD and currently everyday smoker was brought to the hospital from the [facility] due to worsening shortness of breath for the past 1 week. Patient is on home oxygen at night and also throughout the day as needed. Patient was taken to [facility]. He did not have oxygen at the alf. Patient is also having worsening leg swelling and shortness of breath and was brought to the hospital. Otherwise patient denied any fever or chills. No cough or sputum production. No chest pain. Patient does have bilateral lower extremity worsening edema. 03/13/2020 Patient was evaluated by cardiology they believe patient may have pneumonia. Patient does have some atelectasis on the chest x-ray clinically patient appears to have atelectasis more than 1-year-old with not completely without patient will be started on azithromycin, pulmonary will be consulted patient is not in COPD exacerbation and does have significant bilateral lower limb edema most of which appears to be chronic And his baseline appears to be anywhere between 1.5-1.7, INR is better today. patient can use to smoke. Patient doesn't have any fever and leukocytosis. Constitutional: Denied any fatigue denied any fever. Cardio vascular: denied any chest pain, palpitations Gastrointestinal denied any nausea vomiting Pulmonary: can use to complain of shortness of breath Neurologic denied any new focal deficits All inpatient medications were reviewed and appropriate changes in these medications as dictated in the interval history and assessment and plan. Objective - Vital Signs Vital signs: Vital Signs Temp 98.7 F 04/13/20 14:38 Pulse 71 04/13/20 14:38 Resp 22 04/13/20 14:38 BP 111/73 04/13/20 14:38 Pulse Ox 94 L 04/13/20 14:38 Intake & Output 04/12/20 04/13/20 04/13/20 18:59 06:59 18:59 Intake Total 300 Output Total 2 Balance 298 Weight 149.685 kg Intake: Oral 300 Output: Urine/Stool Mix 2 Other: Voiding Method Toilet Toilet Urinal Urinal # Voids 1 4 - Exam PHYSICAL EXAMINATION: GENERAL: The patient is alert and oriented x3, not in any acute distress. Well developed, well nourished. HEENT: Pupils are round and equally reacting to light. EOMI. No scleral icterus. No conjunctival pallor. Normocephalic, atraumatic. No pharyngeal erythema. No thyromegaly. CARDIOVASCULAR: S1 and S2 present. No murmurs, rubs, or gallops. PULMONARY: Chest is clear to auscultation, no wheezing or crackles. ABDOMEN: Soft, nontender, nondistended, normoactive bowel sounds. No palpable organomegaly. MUSCULOSKELETAL: No joint swelling or deformity. EXTREMITIES: No cyanosis, clubbing, does have pedal edema with some chronic venous stasis dermatosis in both legs NEUROLOGICAL: Gross neurological examination did not reveal any focal deficits. SKIN: as mentioned above - Labs CBC & Chem 7: 04/13/20 06:19 04/13/20 06:19 Labs: Abnormal Lab Results - Last 24 Hours (Table) 04/13/20 04/13/20 04/13/20 Range/Units 06:19 06:19 06:19 MCHC 29.8 L (31.0-37.0) g/dL RDW 17.4 H (11.5-15.5) % Neutrophils # (Manual) 8.80 H (1.3-7.7) k/uL PT 21.1 H (9.9-11.9) sec INR 2.06 H (0.90-1.11) Anion Gap 12.90 H (4.00-12.00) mmol/L BUN 46.0 H (9.0-27.0) mg/dL Creatinine 1.7 H (0.6-1.5) mg/dL Est GFR (CKD-EPI)AfAm 48.7 L (60.0-200.0) Est GFR (CKD-EPI)NonAf 42.0 L (60.0-200.0) BUN/Creatinine Ratio 27.06 H (12.00-20.00) Ratio Total Bilirubin 2.1 H (0.3-1.2) mg/dL Alkaline Phosphatase 177 H (41-126) U/L Albumin 3.30 L (3.80-4.90) g/dL Globulin 3.7 H (1.6-3.3) g/dL Albumin/Globulin Ratio 0.89 L (1.60-3.17) g/dL HDL Cholesterol 15.0 L (40.0-60.0) mg/dL Assessment and Plan Plan: Acute on chronic CHF with systolic dysfunction ejection fraction 20-25%with acute exacerbation. Patient is on IV Lasix. continue to monitor kidney function. Patient will be continued on IV Lasix as recommended by cardiology today -acute on chronic hypoxic respiratory failure secondary to CHF exacerbationpatient uses 2 L of oxygen at home presently on 3 L and was on 4 L when he was admitted COPD on home oxygen with mild exacerbation.presently doing well will not require any systemic steroids -Atelectasis with possible bronchitis patient was started on azithromycin no clinical evidence of pneumonia although chest x-ray did show some infiltrate in the left lower lung galvan. Atrial fibrillation chronic persistent on anticoagulation with Coumadinfrom a therapeutic on Coumadin History of AICD placement Currently everyday smoker Hypertension Coronary disease CKD stage III Morbid obesity Coumadin monitoring
[2020-04-13] MEDS ORDERED: guaiFENesin SYRUP 100MG/5ML 200 MG/10 ML CUP PO PRN (16:45)
[2020-04-13] MEDS: carvediloL 12.5 MG TAB PO SCH (16:54)
[2020-04-13] MEDS ORDERED: FUROSEMIDE 10 MG/ML 4 ML VIAL IV SCH (17:00)
[2020-04-13] MEDS ORDERED: WARFARIN 1.5 MG TAB PO ONE (18:00)
[2020-04-13] MEDS ORDERED: MELATONIN 5 MG TABLET PO PRN (19:49)
[2020-04-14] MEDS: ATORVASTATIN 40 MG TAB PO SCH (08:35)
[2020-04-14] MEDS: ISOSORBIDE MONONITRATE ER 30 MG TAB.ER.24H PO SCH (08:35)
[2020-04-14] MEDS: AZITHROMYCIN 500 MG TAB PO SCH (08:35)
[2020-04-14] MEDS: carvediloL 12.5 MG TAB PO SCH ×2 (08:35→17:07)
[2020-04-14] MEDS: FUROSEMIDE 40 MG TAB PO SCH ×2 (08:35→16:56)
[2020-04-14] MEDS: PANTOPRAZOLE 40 MG TABLET PO SCH (08:35)
[2020-04-14] MEDS: ALBUTEROL HFA INHALER INHALATION SCH ×4 (08:56→20:43)
[2020-04-14] MEDS: SYMBICORT 160-4.5 MCG INHALER INHALATION SCH ×2 (08:56→20:43)
[2020-04-14 09:19] LABS: INR 2.25 (0.90-1.11); Prothrombin Time 22.9 sec (9.9-11.9)
[2020-04-14 09:36] LABS: African American GFR (CKD) 52.4 (60.0-200.0); Anion Gap 10.6 mmol/L (4.00-12.00); BUN/Creat Ratio 31.25 Ratio (12.00-20.00); Carbon Dioxide 28.4 mmol/L (21.6-31.8); Non-African American GFR(CKD) 45.2 (60.0-200.0); Potassium 4.9 mmol/L (3.5-5.5)
--- NOTE | 2020-04-14 13:54 | P.CNPUL ---
History of Present Illness Consult date: 04/14/20 Requesting physician: Elmer E Sheet Reason for consult: dyspnea, abnormal CXR/CT Chief complaint: Shortness of breath History of present illness: This is a very pleasant 64-year-old gentleman has a known history of severe ischemic cardiomyopathy with ejection fraction 20-25% and is status post AICD implant. He follows with client relation specialist Dr. Bermudez out of the [facility] system. History of atrial fibrillation anticoagulated with warfarin, chronic hypoxic respiratory failure, COPD, chronic kidney disease and obesity, chronic tobacco dependence. He presented here to the emergency room on 04/12/2020 with complaints of increasing shortness of breath and lower extremity edema. He states this was because [facility] and was not given his oxygen or medications. He is seen today in consultation on the regular medical floor. He is currently awake and alert in no acute distress resting fairly comfortably in bed. He is maintaining good O2 saturations in the mid 90s on 3 L/m nasal cannula. He is afebrile. Hemodynamically stable. White count 10.6. Hemoglobin 13.8. INR 2.25. Sodium 137. Potassium 4.9. Creatinine 1.6. Chest x-ray reveals persistent left lower lobe atelectasis with associated effusion. Suspect chronic in nature, similar to findings from 01/26/2020. He is improved today compared to yesterday. Diuresing well. Review of Systems REVIEW OF SYSTEMS: CONSTITUTIONAL: Denies any recent significant weight loss or weight gain. EYES: Denies change in vision. EARS, NOSE, MOUTH, THROAT: Denies headaches, denies sore throat. CARDIOVASCULAR: Denies chest pain, palpitations or syncopal episodes. RESPIRATORY: Positive for shortness of breath, cough, congestion no hemoptysis. GASTROINTESTINAL: Denies change in appetite, denies abdominal pain GENITOURINARY: Denies hematuria, denies infections. MUSKULOSKELETAL: Denies pain, denies swelling. INTEGUMENTARY: Positive for increased lower extremity edema NEUROLOGICAL: Denies recent memory loss, no recent seizure activity. PSYCHIATRIC: Denies anxiety, denies depression. HEMATOLOGIC/LYMPHATIC: Denies anemia, denies enlarged lymph nodes. Past Medical History Past Medical History: Atrial Fibrillation, Coronary Artery Disease (CAD), Heart Failure, COPD, Hypertension, Pneumonia Additional Past Medical History / Comment(s): CHF with an ejection fraction of 20-25%, history of AICD placement, nonocclusive coronary artery disease, morbid obesity, chronic kidney disease, morbid obesity, COPD, enterococcal UTI, history of chronic atrial fibrillation, History of Any Multi-Drug Resistant Organisms: None Reported Past Surgical History: Pacemaker Additional Past Surgical History / Comment(s): Previous cardiac catheterization,. Medtronic Pacemaker model #[id number]. Serial #[id number] Past Anesthesia/Blood Transfusion Reactions: No Reported Reaction Type of Cardiac Device: Permanent Pacemaker, AICD Device Placement Date:: 2016 Past Psychological History: No Psychological Hx Reported Smoking Status: Current every day smoker Past Alcohol Use History: None Reported Past Drug Use History: None Reported - Past Family History Father Family Medical History: Myocardial Infarction ([place]) Medications and Allergies Home Medications Medication Instructions Recorded Confirmed Type Budesonide/Formoterol Fumarate 2 puff INHALATION RT-BID 01/10/20 04/12/20 History [Symbicort 160-4.5 Mcg Inhaler] Oxybutynin Xl [Ditropan XL] 5 mg PO DAILY 01/10/20 04/12/20 History Potassium Chloride ER [K-Dur 20] 20 meq PO DAILY 01/10/20 04/12/20 History Ipratropium-Albuterol Nebulize 3 ml INHALATION RT-Q4H PRN ml 01/20/20 04/12/20 Rx [Duoneb 0.5 mg-3 mg/3 ml Soln] Atorvastatin [Lipitor] 40 mg PO DAILY 04/12/20 04/12/20 History Carvedilol [Coreg] 25 mg PO BID 04/12/20 04/12/20 History Furosemide [Lasix] 40 mg PO BID 04/12/20 04/12/20 History Isosorbide Mononitrate ER [Imdur] 30 mg PO DAILY 04/12/20 04/12/20 History Pantoprazole [Protonix] 40 mg PO DAILY 04/12/20 04/12/20 History Sulfamethox-Tmp 800-160Mg [Bactrim 1 tab PO Q12H 04/12/20 04/12/20 History DS 800-160 mg] Warfarin [Coumadin] 1.5 mg PO MOWEFR 04/12/20 04/12/20 History Warfarin [Coumadin] 3 mg PO SUTUTHSA 04/12/20 04/12/20 History hydrOXYzine HCL [Atarax] 25 mg PO HS 04/12/20 04/12/20 History Allergies Allergy/AdvReac Type Severity Reaction Status Date / Time No Known Allergies Allergy Verified 04/12/20 15:16 Physical Exam Vitals: Vital Signs Temp Pulse Resp BP BP Pulse Ox 04/14/20 07:25 96 04/14/20 07:17 97.5 F L 61 14 138/98 04/14/20 04:00 78 20 04/14/20 01:05 97.7 F 78 20 103/76 97 04/14/20 00:00 78 22 04/13/20 20:00 78 22 04/13/20 19:45 97.4 F L 78 22 105/78 96 04/13/20 14:38 98.7 F 71 22 111/73 94 L Intake and Output 04/13/20 04/14/20 04/14/20 22:59 06:59 14:59 Intake Total 200 100 Balance 200 100 Intake: Oral 200 100 Other: Voiding Method Toilet Toilet Urinal Urinal # Voids 2 4 # Bowel Movements 1 1 GENERAL EXAM: Alert, pleasant 64-year-old gentleman, on 3 L nasal cannula, comfortable in no apparent distress. HEAD: Normocephalic. EYES: Normal reaction of pupils, equal size. NOSE: Clear with pink turbinates. THROAT: No erythema or exudates. NECK: No masses, no JVD. CHEST: No chest wall deformity. LUNGS: Equal air entry with crackles in the bilateral posterior bases, diminished. CVS: S1 and S2 normal with no audible murmur, regular rhythm. ABDOMEN: No hepatosplenomegaly, normal bowel sounds, no guarding or rigidity. SPINE: No scoliosis or deformity SKIN: No rashes CENTRAL NERVOUS SYSTEM: No focal deficits, tone is normal in all 4 extremities. EXTREMITIES: There is trace peripheral edema. No clubbing, no cyanosis. Peripheral pulses are intact. Results - Laboratory Findings CBC and BMP: 04/13/20 06:19 04/14/20 06:07 PT/INR, D-dimer PT 22.9 sec (9.9-11.9) H 04/14/20 06:07 INR 2.25 (0.90-1.11) H 04/14/20 06:07 Abnormal lab findings: Abnormal Labs 04/12/20 04/12/20 04/12/20 11:42 11:42 11:42 MCHC 29.9 L RDW 17.5 H Neutrophils # (Manual) Lymphocytes # 0.8 L PT 18.6 H INR 1.9 H Sodium 136 L Anion Gap BUN 42 H Creatinine 1.52 H Est GFR (CKD-EPI)AfAm Est GFR (CKD-EPI)NonAf BUN/Creatinine Ratio Glucose 108 H Total Bilirubin 2.2 H Alkaline Phosphatase 182 H Albumin 3.2 L Globulin Albumin/Globulin Ratio HDL Cholesterol 04/13/20 04/13/20 04/13/20 06:19 06:19 06:19 MCHC 29.8 L RDW 17.4 H Neutrophils # (Manual) 8.80 H Lymphocytes # PT 21.1 H INR 2.06 H Sodium Anion Gap 12.90 H BUN 46.0 H Creatinine 1.7 H Est GFR (CKD-EPI)AfAm 48.7 L Est GFR (CKD-EPI)NonAf 42.0 L BUN/Creatinine Ratio 27.06 H Glucose Total Bilirubin 2.1 H Alkaline Phosphatase 177 H Albumin 3.30 L Globulin 3.7 H Albumin/Globulin Ratio 0.89 L HDL Cholesterol 15.0 L 04/14/20 04/14/20 06:07 06:07 MCHC RDW Neutrophils # (Manual) Lymphocytes # PT 22.9 H INR 2.25 H Sodium Anion Gap BUN 50.0 H Creatinine 1.6 H Est GFR (CKD-EPI)AfAm 52.4 L Est GFR (CKD-EPI)NonAf 45.2 L BUN/Creatinine Ratio 31.25 H Glucose Total Bilirubin Alkaline Phosphatase Albumin Globulin Albumin/Globulin Ratio HDL Cholesterol - Diagnostic Findings Chest x-ray: image reviewed Assessment and Plan Assessment: 1 Acute exacerbation of chronic systolic congestive heart failure 2 Severe ischemic cardiomyopathy with ejection fraction 30-35% status post AICD placement 3 Atrial fibrillation anticoagulated with warfarin 4 Chronic kidney disease 5 Chronic obstructive pulmonary disease 6 Chronic tobacco dependence 7 Chronic hypoxic respiratory failure 8 Nonocclusive coronary disease 9 Recently incarcerated Plan: The patient was seen and evaluated by Dr. Guido X-ray and labs reviewed Continue diuretics Continue bronchodilators Discharge once cleared by cardiology I, the cosigning physician, performed a history & physical examination of the patient. Lungs sounds crackles in the bases, diminished Maintaining good O2 saturations in the 90s on 3 L/m per nasal cannula. I discussed the assessment and plan of care with my nurse practitioner, Margret Wilhelm. I attest to the above consultation as dictated by her. Time with Patient: Greater than 30
--- NOTE | 2020-04-14 17:12 | P.PN ---
Subjective Progress Note Date: 04/14/20 This 69-year-old gentleman with history of cardiac myopathy and congestive heart failure who was admitted with complaints of increasing shortness of breath. Patient was treated with IV diuretics, with improvement of his symptoms. His blood pressure is stable. Patient remains afebrile. Patient claims she is diuresing well. He is feeling much better. He is currently on Coreg 12.5 g by mouth twice a day and IV Lasix 60 mg every 12 hours. He is also on Zithromax and inhalers. Patient seen by pulmonology also. His creatinine is about 1.6- 1.7. His potassium is about 5. We will continue current medical therapy and switching to by mouth headaches tomorrow. if stable, patient could be discharg ed home within 24-48 hours. Objective - Vital Signs Vital signs: Vital Signs Temp 97.3 F L 04/14/20 14:43 Pulse 75 04/14/20 14:43 Resp 17 04/14/20 14:43 BP 110/76 04/14/20 14:43 Pulse Ox 96 04/14/20 14:43 Intake & Output 04/13/20 04/14/20 04/14/20 18:59 06:59 18:59 Intake Total 300 Balance 300 Intake: Oral 300 Other: Voiding Method Toilet Toilet Urinal Urinal # Voids 4 4 5 # Bowel Movements 1 2 - Exam GENERAL EXAM: Patient is alert and oriented and doesn't appear to be in any acute distress HEENT: Normocephalic. Normal reaction of pupils, equal size, normal range of extraocular motion. No erythema or exudates in the throat. NECK: No masses, no nuchal rigidity. CHEST: No chest wall deformity. LUNGS: Appear to be clear HEART: S1 and S2 normal with no audible mumurs or gallops. Regular rhythm, femorals equal on both sides.. ABDOMEN: No hepatosplenomegaly, normal bowel sounds, no guarding or rigidity. SKIN: No rashes CENTRAL NERVOUS SYSTEM: No focal deficits. EXTREMITIES: No cyanosis, clubbing or edema. - Labs CBC & Chem 7: 04/13/20 06:19 04/14/20 06:07 Labs: Abnormal Lab Results - Last 24 Hours (Table) 04/14/20 04/14/20 Range/Units 06:07 06:07 PT 22.9 H (9.9-11.9) sec INR 2.25 H (0.90-1.11) BUN 50.0 H (9.0-27.0) mg/dL Creatinine 1.6 H (0.6-1.5) mg/dL Est GFR (CKD-EPI)AfAm 52.4 L (60.0-200.0) Est GFR (CKD-EPI)NonAf 45.2 L (60.0-200.0) BUN/Creatinine Ratio 31.25 H (12.00-20.00) Ratio Assessment and Plan (1) Cardiomyopathy Current Visit: Yes Status: Acute Code(s): I42.9 - CARDIOMYOPATHY, UNSPECIFIED SNOMED Code(s): 56024231 (2) COPD (chronic obstructive pulmonary disease) Current Visit: Yes Status: Acute Code(s): J44.9 - CHRONIC OBSTRUCTIVE PULM ONARY DISEASE, UNSPECIFIED SNOMED Code(s): 52232086 (3) Congestive heart failure Current Visit: Yes Status: Acute Code(s): I50.9 - HEART FAILURE, UNSPECIFIED SNOMED Code(s): 48313798 Plan: Patient is being treated for acute on chronic CHF. May have concomitant bronchitis and COPD did continue current medical therapy. Switch to by mouth diuretics tomorrow. May be discharged home within 24-48 hours
--- NOTE | 2020-04-14 17:25 | P.PN ---
Subjective 64-year-old male with a known history of chronic CHF with ejection fraction 20 to 25%, history of AICD placement, coronary artery disease, atrial fibrillation on anticoagulation with Coumadin, hypertension and COPD and currently everyday smoker was brought to the hospital from the [facility] due to worsening shortness of breath for the past 1 week. Patient is on home oxygen at night and also throughout the day as needed. Patient was taken to [facility]. He did not have oxygen at the [facility]. Patient is also having worsening leg swelling and shortness of breath and was brought to the hospital. Otherwise patient denied any fever or chills. No cough or sputum production. No chest pain. Patient does have bilateral lower extremity worsening edema. 04/13/2020 Patient was evaluated by cardiology they believe patient may have pneumonia. Patient does have some atelectasis on the chest x-ray clinically patient appears to have atelectasis more than 1-year-old with not completely without patient will be started on azithromycin, pulmonary will be consulted patient is not in COPD exacerbation and does have significant bilateral lower limb edema most of which appears to be chronic And his baseline appears to be anywhere between 1.5-1.7, INR is better today. patient can use to smoke. Patient doesn't have any fever and leukocytosis. 04/14/2020 systole remains on monthly dysfunction will change Lasix to IV at 60 mg twice a day creatinine did improve with IV Lasix. Creatinine improved from 1.7-1.6. Constitutional: Denied any fatigue denied any fever. Cardio vascular: denied any chest pain, palpitations Gastrointestinal denied any nausea vomiting Pulmonary: can use to complain of shortness of breath Neurologic denied any new focal deficits All inpatient medications were reviewed and appropriate changes in these medications as dictated in the interval history and assessment and plan. Objective - Vital Signs Vital signs: Vital Signs Temp 97.3 F L 04/14/20 14:43 Pulse 75 04/14/20 14:43 Resp 17 04/14/20 14:43 BP 110/76 04/14/20 14:43 Pulse Ox 96 04/14/20 14:43 Intake & Output 04/13/20 04/14/20 04/14/20 18:59 06:59 18:59 Intake Total 300 Balance 300 Intake: Oral 300 Other: Voiding Method Toilet Toilet Urinal Urinal # Voids 4 4 5 # Bowel Movements 1 2 - Exam PHYSICAL EXAMINATION: GENERAL: The patient is alert and oriented x3, not in any acute distress. Well developed, well nourished. HEENT: Pupils are round and equally reacting to light. EOMI. No scleral icterus. No conjunctival pallor. Normocephalic, atraumatic. No pharyngeal erythema. No thyromegaly. CARDIOVASCULAR: S1 and S2 present. No murmurs, rubs, or gallops. PULMONARY: Chest is clear to auscultation, no wheezing or crackles. ABDOMEN: Soft, nontender, nondistended, normoactive bowel sounds. No palpable organomegaly. MUSCULOSKELETAL: No joint swelling or deformity. EXTREMITIES: No cyanosis, clubbing, does have pedal edema with some chronic venous stasis dermatosis in both legs, his pedal edema did improve compared to yesterday NEUROLOGICAL: Gross neurological examination did not reveal any focal deficits. SKIN: as mentioned above - Labs CBC & Chem 7: 04/13/20 06:19 04/14/20 06:07 Labs: Abnormal Lab Results - Last 24 Hours (Table) 04/14/20 04/14/20 Range/Units 06:07 06:07 PT 22.9 H (9.9-11.9) sec INR 2.25 H (0.90-1.11) BUN 50.0 H (9.0-27.0) mg/dL Creatinine 1.6 H (0.6-1.5) mg/dL Est GFR (CKD-EPI)AfAm 52.4 L (60.0-200.0) Est GFR (CKD-EPI)NonAf 45.2 L (60.0-200.0) BUN/Creatinine Ratio 31.25 H (12.00-20.00) Ratio Assessment and Plan Plan: Acute on chronic CHF with systolic dysfunction ejection fraction 20-25%with acute exacerbation. Patient is on IV Lasix. continue to monitor kidney function. -acute on chronic hypoxic respiratory failure secondary to CHF exacerbationpatient uses 2 L of oxygen at home presently on 3 L and was on 4 L when he was admitted COPD on home oxygen with mild exacerbation.presently doing well will not require any systemic steroids -Atelectasis with possible bronchitis patient was started on azithromycin no clinical evidence of pneumonia although chest x-ray did show some infiltrate in the left lower lung galvan. Atrial fibrillation chronic persistent on anticoagulation with Coumadinfrom a therapeutic on Coumadin History of AICD placement Currently everyday smoker Hypertension Coronary disease CKD stage III Morbid obesity Coumadin monitoring
[2020-04-14] MEDS ORDERED: WARFARIN 3 MG TAB PO ONE (18:00)
[2020-04-14] MEDS: FUROSEMIDE 10 MG/ML 10 ML VIAL IV SCH (20:45)
[2020-04-15] MEDS: SYMBICORT 160-4.5 MCG INHALER INHALATION SCH (07:56)
[2020-04-15] MEDS: ALBUTEROL HFA INHALER INHALATION SCH ×2 (07:56→11:36)
[2020-04-15] MEDS: ISOSORBIDE MONONITRATE ER 30 MG TAB.ER.24H PO SCH (08:26)
[2020-04-15] MEDS: AZITHROMYCIN 500 MG TAB PO SCH (08:26)
[2020-04-15] MEDS: PANTOPRAZOLE 40 MG TABLET PO SCH (08:26)
[2020-04-15] MEDS: ATORVASTATIN 40 MG TAB PO SCH (08:26)
[2020-04-15] MEDS: carvediloL 12.5 MG TAB PO SCH (08:26)
[2020-04-15] MEDS: FUROSEMIDE 10 MG/ML 10 ML VIAL IV SCH (08:26)
[2020-04-15 09:07] VITALS: BP 105/75; PULSE 63; RESP 17; TEMP 98.3
[2020-04-15 09:16] LABS: INR 2.36 (0.90-1.11); Prothrombin Time 24.4 sec (9.9-11.9)
[2020-04-15 09:19] LABS: African American GFR (CKD) 61.5 (60.0-200.0); Anion Gap 6.5 mmol/L (4.00-12.00); BUN/Creat Ratio 30.71 Ratio (12.00-20.00); Calcium 8.7 mg/dL (8.7-10.3); Carbon Dioxide 34.5 mmol/L (21.6-31.8); Non-African American GFR(CKD) 53.1 (60.0-200.0); Potassium 4.3 mmol/L (3.5-5.5)
--- NOTE | 2020-04-15 10:35 | P.PN ---
Subjective Progress Note Date: 04/15/20 This 69-year-old gentleman with history of cardiac myopathy and congestive heart failure who was admitted with complaints of increasing shortness of breath. Patient was treated with IV diuretics, with improvement of his symptoms. His blood pressure is stable. Patient remains afebrile. Patient claims she is diuresing well. He is feeling much better. He is currently on Coreg 12.5 g by mouth twice a day and IV Lasix 60 mg every 12 hours. He is also on Zithromax and inhalers. Patient seen by pulmonology also. His creatinine is about 1.6- 1.7. His potassium is about 5. We will continue current medical therapy and switching to by mouth diuretics tomorrow. if stable, patient could be [facility] within 24-48 hours. 04/15/2020: This patient with history of heart myopathy and congestive heart failure, admitted with increasing shortness of breath. Patient responded well to therapy. Is feeling better. Sitting in the chair. Lungs appeared to be clear patient will continue current medical therapy. Patient could be discharged home. Follow-up with his own rock duster Objective - Vital Signs Vital signs: Vital Signs Temp 98.3 F 04/15/20 07:00 Pulse 63 04/15/20 07:00 Resp 17 04/15/20 07:00 BP 105/75 04/15/20 07:00 Pulse Ox 95 04/15/20 07:00 Intake & Output 04/14/20 04/15/20 04/15/20 18:59 06:59 18:59 Other: Voiding Method Toilet Urinal # Voids 5 5 # Bowel Movements 2 - Exam GENERAL EXAM: Patient is alert and oriented and doesn't appear to be in any acute distress HEENT: Normocephalic. Normal reaction of pupils, equal size, normal range of extraocular motion. No erythema or exudates in the throat. NECK: No masses, no nuchal rigidity. CHEST: No chest wall deformity. LUNGS: Appear to be clear HEART: S1 and S2 normal with no audible mumurs or gallops. Regular rhythm, femorals equal on both sides.. ABDOMEN: No hepatosplenomegaly, normal bowel sounds, no guarding or rigidity. SKIN: No rashes CENTRAL NERVOUS SYSTEM: No focal deficits. EXTREMITIES: No cyanosis, clubbing or edema. - Labs CBC & Chem 7: 04/13/20 06:19 04/15/20 05:55 Labs: Abnormal Lab Results - Last 24 Hours (Table) 04/15/20 04/15/20 Range/Units 05:55 05:55 PT 24.4 H (9.9-11.9) sec INR 2.36 H (0.90-1.11) Carbon Dioxide 34.5 H (21.6-31.8) mmol/L BUN 43.0 H (9.0-27.0) mg/dL Est GFR (CKD-EPI)NonAf 53.1 L (60.0-200.0) BUN/Creatinine Ratio 30.71 H (12.00-20.00) Ratio Assessment and Plan (1) Cardiomyopathy Current Visit: Yes Status: Acute Code(s): I42.9 - CARDIOMYOPATHY, UNSPECIFIED SNOMED Code(s): 98948695 (2) COPD (chronic obstructive pulmonary disease) Current Visit: Yes Status: Acute Code(s): J44.9 - CHRONIC OBSTRUCTIVE PULMONARY DISEASE, UNSPECIFIED SNOMED Code(s): 08532690 (3) Congestive heart failure Current Visit: Yes Status: Acute Code(s): I50.9 - HEART FAILURE, UNSPECIFIED SNOMED Code(s): 58238396 Plan: Patient seemed to be clinically stable. Could be discharged home. Follow-up with his own rock duster
--- NOTE | 2020-04-15 13:03 | P.DS ---
Providers Date of admission: 04/12/20 14:06 Attending physician: Elmer Herrmann MD Consults: 04/12/20 21:54 Consult Physician Routine Consulting Provider: Rg Melchor Consult Reason/Comments: CHF exacerbation Do you want consulting provider notified?: Yes, Notify in am 04/13/20 13:30 Consult Physician Routine Consulting Provider: Alicia Hill Consult Reason/Comments: pneumonia Do you want consulting provider notified?: Yes Primary care physician: Joann [facility] Course: 64-year-old male with a known history of chronic CHF with ejection fraction 20 to 25%, history of AICD placement, coronary artery disease, atrial fibrillation on anticoagulation with Coumadin, hypertension and COPD and currently everyday smoker was brought to the hospital from the [facility] due to worsening shortness of breath for the past 1 week. Patient is on home oxygen at night and also throughout the day as needed. [facility] Patient is also having worsening leg swelling and shortness of breath and was brought to the hospital. Otherwise patient denied any fever or chills. No cough or sputum production. No chest pain. Patient d oes have bilateral lower extremity worsening edema. 04/13/2020 Patient was evaluated by cardiology they believe patient may have pneumonia. Patient does have some atelectasis on the chest x-ray clinically patient appears to have atelectasis more than 1-year-old with not completely without patient will be started on azithromycin, pulmonary will be consulted patient is not in COPD exacerbation and does have significant bilateral lower limb edema most of which appears to be chronic And his baseline appears to be anywhere between 1.5-1.7, INR is better today. patient can use to smoke. Patient doesn't have any fever and leukocytosis. 04/14/2020 systole remains on monthly dysfunction will change Lasix to IV at 60 mg twice a day creatinine did improve with IV Lasix. Creatinine improved from 1.7-1.6. 04/15/2020 Patient is ready status is at his baseline still has some pedal edema as per the patient patient always has hospital patient was cleared by pulmonology and cardiology. Patient was being treated for cellulitis of the left lower extremity with Bactrim patient appears to have mostly venous stasis doesn't appear to have much of cellulitis patient is not a candidate for Bactrim because of kidney dysfunction. Patient had creatinine of 1.6 yesterday improved to 1.4 with the IV Lasix. Patient will be discharged on 3 more days of doxycycline. There is no convincing evidence of pneumonia at this time. Azithromycin will be discontinued. We'll increase the dose of Lasix to 60 mg oral twice a day PHYSICAL EXAMINATION: GENERAL: The patient is alert and oriented x3, not in any acute distress. Well developed, well nourished. HEENT: Pupils are round and equally reacting to light. EOMI. No scleral icterus. No conjunctival pallor. Normocephalic, atraumatic. No pharyngeal erythema. No thyromegaly. CARDIOVASCULAR: S1 and S2 present. No murmurs, rubs, or gallops. PULMONARY: Chest is clear to auscultation, no wheezing or crackles. ABDOMEN: Soft, nontender, nondistended, normoactive bowel sounds. No palpable organomegaly. MUSCULOSKELETAL: No joint swelling or deformity. EXTREMITIES: No cyanosis, clubbing, does have pedal edema with some chronic venous stasis dermatosis in both legs, his pedal edema did improve evidently compared to admission NEUROLOGICAL: Gross neurological examination did not reveal any focal deficits. SKIN: as mentioned above Assessment and Plan Plan: Acute on chronic CHF with systolic dysfunction ejection fraction 20-25%with acute exacerbation. improved creatinine with Lasix. -acute on chronic hypoxic respiratory failure secondary to CHF exacerbationpatient uses 2 L of oxygen of presently saturating well on 2 L. COPD on home oxygen with mild exacerbation. -Atelectasis with possible bronchitis no clinical evidence of pneumonia al Atrial fibrillation chronic persistent on anticoagulation with Coumadin. History of AICD placement Currently everyday smoker Hypertension Coronary disease CKD stage III Morbid obesity Coumadin monitoring Patient Condition at Discharge: Stable Plan - Discharge Summary New Discharge Prescriptions: New carvediloL [Coreg*] 12.5 mg PO BID-W/MEALS tab Doxycycline [Vibramycin] 100 mg PO BID 3 Days #6 capsule Continue Budesonide/Formoterol Fumarate [Symbicort 160-4.5 Mcg Inhaler] 2 puff INHALATION RT-BID Potassium Chloride ER [K-Dur 20] 20 meq PO DAILY Oxybutynin Xl [Ditropan XL] 5 mg PO DAILY Ipratropium-Albuterol Nebulize [Duoneb 0.5 mg-3 mg/3 ml Soln] 3 ml INHALATION RT-Q4H PRN ml PRN Reason: shortness of breath Warfarin [Coumadin] 1.5 mg PO MOWEFR Warfarin [Coumadin] 3 mg PO SUTUTHSA Pantoprazole [Protonix] 40 mg PO DAILY Isosorbide Mononitrate ER [Imdur] 30 mg PO DAILY Atorvastatin [Lipitor] 40 mg PO DAILY Changed Furosemide [Lasix] 60 mg PO BID #0 Discontinued hydrOXYzine HCL [Atarax] 25 mg PO HS Carvedilol [Coreg] 25 mg PO BID Sulfamethox-Tmp 800-160Mg [Bactrim DS 800-160 mg] 1 tab PO Q12H Discharge Medication List Budesonide/Formoterol Fumarate [Symbicort 160-4.5 Mcg Inhaler] 2 puff INHALATION RT-BID 01/10/20 [History] Oxybutynin Xl [Ditropan XL] 5 mg PO DAILY 01/10/20 [History] Potassium Chloride ER [K-Dur 20] 20 meq PO DAILY 01/10/20 [History] Ipratropium-Albuterol Nebulize [Duoneb 0.5 mg-3 mg/3 ml Soln] 3 ml INHALATION RT-Q4H PRN ml 01/20/20 [Rx] Atorvastatin [Lipitor] 40 mg PO DAILY 04/12/20 [History] Isosorbide Mononitrate ER [Imdur] 30 mg PO DAILY 04/12/20 [History] Pantoprazole [Protonix] 40 mg PO DAILY 04/12/20 [History] Warfarin [Coumadin] 1.5 mg PO MOWEFR 04/12/20 [History] Warfarin [Coumadin] 3 mg PO SUTUTHSA 04/12/20 [History] Doxycycline [Vibramycin] 100 mg PO BID 3 Days #6 capsule 04/15/20 [Rx] Furosemide [Lasix] 60 mg PO BID #0 04/15/20 [Rx] carvediloL [Coreg*] 12.5 mg PO BID-W/MEALS tab 04/15/20 [Rx] Follow up Appointment(s)/Referral(s): Joann Scott MD [Primary Care Provider] - [address],[place] [NON-STAFF] - (Call to see if they have a shower transfer bench. ) Ambulatory/Diagnostic Orders: Basic Metabolic Panel [LAB.AMB] Time Frame: 3 Days, Location: None Selected Prothrombin Time INR [LAB.AMB] Time Frame: 3 Days, Location: None Selected Patient Instructions/Handouts: Heart Failure (DC) Discharge Disposition: HOME SELF-CARE
[2020-04-15] MEDS ORDERED: WARFARIN 3 MG TAB PO ONE (18:00)
== END 2020-04-15 14:07 | disposition home or self-care (01) | DRG 291 ==
LOC: EC 11:28 → 4SSUR 14:06
PROVIDERS: ADMIT Internal Medicine; ATTEND Internal Medicine
DX: I13.0 Hypertensive heart and chronic kidney disease with heart failure and stage 1 through stage 4 chronic kidney disease, or unspecified chronic kidney disease (principal); I50.23 Acute on chronic systolic (congestive) heart failure; J96.21 Acute and chronic respiratory failure with hypoxia; I48.19 Other persistent atrial fibrillation; L03.116 Cellulitis of left lower limb; Z68.41 Body mass index [BMI] 40.0-44.9, adult; J98.11 Atelectasis; I27.20 Pulmonary hypertension, unspecified; I51.3 Intracardiac thrombosis, not elsewhere classified; N18.30 Chronic kidney disease, stage 3 unspecified; E66.01 Morbid (severe) obesity due to excess calories; J44.9 Chronic obstructive pulmonary disease, unspecified; Z99.81 Dependence on supplemental oxygen; I25.5 Ischemic cardiomyopathy; I25.10 Atherosclerotic heart disease of native coronary artery without angina pectoris; I87.8 Other specified disorders of veins; E78.5 Hyperlipidemia, unspecified; F17.200 Nicotine dependence, unspecified, uncomplicated; Z71.6 Tobacco abuse counseling; Z79.51 Long term (current) use of inhaled steroids; Z79.01 Long term (current) use of anticoagulants; Z79.899 Other long term (current) drug therapy; Z79.82 Long term (current) use of aspirin; Z86.19 Personal history of other infectious and parasitic diseases; Z95.810 Presence of automatic (implantable) cardiac defibrillator; Z87.440 Personal history of urinary (tract) infections; Z87.01 Personal history of pneumonia (recurrent); Z82.49 Family history of ischemic heart disease and other diseases of the circulatory system
CPT/HCPCS: 36415; 71046; 80048; 80053; 80061; 83605; 83735; 83880; 84484; 85025; 85610; 85730; 93005; 94640; 96374; 99285